=== PATIENT | female | born 1990 | race Caucasian/White ===

== ENCOUNTER → 2016-08-13 | Outpatient (CLI) | payer MEDICAID ==
[~2016-08-13] MED LIST: ACHD5005 PO; ACHYD1T PO; AMOX500C2 PO; AMOX875T2 PO; AZIT500T PO; CEFU500T PO; CEPH500C PO; CLIN300C11 PO; CPH250CIP PO; CYCL10TA9 PO; DICY10CA26 PO; DOXY100C2 PO; FLUC150T PO; FLUC200T45 PO; HYDR25CA5 PO; HYOS0.1216 PO; IBP800T PO; IBUP-1773 PO; IBUP1TAB5 PO; METR500T PO; NAPR-243 PO; NITR100C3 PO; ONDA-42 SL; ONDA4TAB8 PO; OXYC-109 PO; PHEN200T27 PO; PREN-115 PO; PROM25SU10 PR; SULF1TAB35 PO; TRAM-21 PO; TRAM-42 PO; TRAM100T26 PO; TRAM50TA2 PO; TRM50T PO
--- NOTE | 2016-08-13 15:02 | Diagnostic Imaging Report ---
OB ultrasound. INDICATION: survey. COMPARISON: 06/20/2016. FINDINGS: heart rate is 143 beats per minutes. The placenta is posterior. No placenta previa. There is adequate amniotic fluid. survey parameters demonstrate normal appearance of the posterior fossa, no ventriculomegaly. Visualized kidneys demonstrate no hydronephrosis or cystic mass. The cord insertion, bladder, and stomach are visualized. Three-vessel cord is not well demonstrated. The spine appears unremarkable. The growth parameters are all around 19 weeks and 1 day, normal interval growth compared to prior studies and consistent with gestational age of 18 weeks and 4 days based on prior first trimester ultrasound dating. IMPRESSION: Appropriate interval growth. Reevaluation within 2-3 weeks for four-chamber view and three-vessel cord is recommended. Dictated by: Dictated on workstation # [id number]
== END ==
LOC: RAD 10:04
PROVIDERS: ATTEND Family Medicine
DX: Z34.02 Encounter for supervision of normal first pregnancy, second trimester (principal); Z36 Encounter for antenatal screening of mother; Z3A.19 19 weeks gestation of pregnancy
CPT/HCPCS: 76805

== ENCOUNTER 2016-10-05 23:06 | Outpatient (CLI) | payer MEDICAID ==
[~2016-10-05] VITALS: Ht 170.2 cm; Wt 81.8 kg
[2016-10-05 23:34] LABS: BILIRUBIN,URINE NEGATIVE (NEGATIVE); KETONES,URINE NEGATIVE (NEGATIVE); LEUKOCYTE ESTERASE ,URINE NEGATIVE (NEGATIVE); NITRITE,URINE NEGATIVE (NEGATIVE); PH,URINE 7 (5-9); PROTEIN,URINE NEGATIVE (NEGATIVE); UROBILINOGEN,URINE NORMAL (NORMAL)
[2016-10-05 23:48] VITALS: BP 114/57
--- NOTE | 2016-10-06 14:11 | Physician Query-Final Dx ---
TINA ORTEGA 10/06/16 1411: Clinic Account Progress/Dx Physician Query: Please give diagnosis Date of Service Oct 05, 2016 at 23:06 TORI GRAY MD 10/19/16 1728: Clinic Account Progress/Dx DIAGNOSIS: Diagnosis 1. Decreased movement 2. Pelvic pain-pressure from 3. IUP at 27 weeks. TINA ORTEGA Oct 06, 2016 14:11 TORI GRAY MD Oct 19, 2016 17:28
== END 2016-10-05 23:53 | disposition home or self-care (01) ==
LOC: DELPENDDIS → LDRP 23:06 → WSo 23:06
PROVIDERS: ATTEND Family Medicine
DX: O36.8120 Decreased fetal movements, second trimester, not applicable or unspecified (principal); O99.89 Other specified diseases and conditions complicating pregnancy, childbirth and the puerperium; R10.2 Pelvic and perineal pain; Z3A.27 27 weeks gestation of pregnancy
CPT/HCPCS: 81000; 99212

== ENCOUNTER → 2016-10-14 | Outpatient (CLI) | payer MEDICAID ==
--- NOTE | 2016-10-14 17:34 | Diagnostic Imaging Report ---
EXAMINATION: OB ultrasound. INDICATION: survey. FINDINGS: The previous OB ultrasound exam performed on 08/13/2016 noted a single live fetus of approximately 19 weeks 1 day gestation +/- 1 week. There are no abnormalities identified, but the four-chamber heart view and the three-vessel cord were not well visualized. On this study, the fetus is again evident. The fetus is transverse in presentation. heart motion is noted and a rate of 153 bpm is recorded. The four-chamber heart view and the three-vessel cord are obtained on this study and are of better quality than on the prior exam. There is no abnormality of the heart or the three-vessel cord. No other abnormality is identified. The growth parameters are not obtained for this study. The placenta is posterior and there is no previa. The amniotic fluid index is 21.4 cm (normal 8-22 cm). On the prior exam, the amniotic fluid index was not calculated, although the amniotic fluid volume appeared to be within normal limits. I do feel that there has been an increase in the amniotic fluid volume since the prior study. I would recommend that a short-term (2-4 weeks) follow-up exam be performed for further study. The cervix is visualized during this exam. The cervix is closed and measures 5.2 cm in length (normal 3 cm or greater). IMPRESSION: 1. There is a single live fetus in transverse presentation. 2. There are no abnormalities identified. In particular, four-chamber heart view and three-vessel cord appear to be within normal limits. 3. The amniotic fluid volume is at the upper most limits of normal. Recommendations as above. Dictated by: Dictated on workstation # [id number]
== END ==
LOC: RAD 13:19
PROVIDERS: ATTEND Family Medicine
DX: Z36 Encounter for antenatal screening of mother (principal)
CPT/HCPCS: 76816

== ENCOUNTER 2016-11-21 20:14 | Outpatient (CLI) | payer MEDICAID ==
[~2016-11-21] VITALS: Ht 170.2 cm; Wt 82.7 kg
[2016-11-21 20:45] LABS: BILIRUBIN,URINE NEGATIVE (NEGATIVE); KETONES,URINE NEGATIVE (NEGATIVE); LEUKOCYTE ESTERASE ,URINE 1+ (NEGATIVE); NITRITE,URINE NEGATIVE (NEGATIVE); PH,URINE 6.5 (5-9); PROTEIN,URINE 1+ (NEGATIVE); UROBILINOGEN,URINE NORMAL (NORMAL)
[2016-11-21 21:07] VITALS: BP 113/69
--- NOTE | 2016-11-24 11:24 | Physician Query-Final Dx ---
TINA ORTEGA 11/24/16 1124: Clinic Account Progress/Dx Physician Query: Please give diagnosis Date of Service November 21, 2016 at 20:14 SIN CHANEY MD 11/27/16 2152: Clinic Account Progress/Dx DIAGNOSIS: Diagnosis Left leg pain Vaginal pressure TINA ORTEGA November 24, 2016 11:24 SIN CHANEY MD November 27, 2016 21:52
== END 2016-11-21 21:15 | disposition home or self-care (01) ==
LOC: LDRP 20:14 → WSo 20:14
PROVIDERS: ATTEND Family Medicine
DX: O99.89 Other specified diseases and conditions complicating pregnancy, childbirth and the puerperium (principal); M79.605 Pain in left leg; R10.2 Pelvic and perineal pain; Z3A.32 32 weeks gestation of pregnancy
CPT/HCPCS: 81000; 87210; 99212

== ENCOUNTER 2016-12-24 00:48 | Outpatient (CLI) | payer MEDICAID ==
[~2016-12-24] VITALS: Ht 167.6 cm; Wt 83.9 kg
[2016-12-24 01:06] VITALS: BP 109/67
[2016-12-24 01:14] LABS: BILIRUBIN,URINE NEGATIVE (NEGATIVE); KETONES,URINE NEGATIVE (NEGATIVE); LEUKOCYTE ESTERASE ,URINE NEGATIVE (NEGATIVE); NITRITE,URINE NEGATIVE (NEGATIVE); PH,URINE 6.5 (5-9); PROTEIN,URINE NEGATIVE (NEGATIVE); UROBILINOGEN,URINE NORMAL (NORMAL)
[2016-12-24] MEDS ORDERED: PREN-142 PO (01:39)
--- NOTE | 2016-12-25 12:20 | Physician Query-Final Dx ---
MICH VERDIN 12/25/16 1220: Clinic Account Progress/Dx Physician Query: Please give diagnosis Date of Service Dec 24, 2016 at 00:48 TORI GARY MD 12/31/16 0729: Clinic Account Progress/Dx DIAGNOSIS: Diagnosis 1. IUP at 37 weeks non labor 2. Uterine irritability MICH VERDIN Dec 25, 2016 12:20 TORI GRAY MD Dec 31, 2016 07:29
--- NOTE | 2016-12-25 12:20 | Physician Query-Final Dx ---
Clinic Account Progress/Dx Physician Query: Please give diagnosis Date of Service Dec 24, 2016 at 00:48 MICH VERDIN Dec 25, 2016 12:20
[2017-01-01] MEDS ORDERED: Oxycodone Hcl PO (13:32)
[2017-01-01] MEDS ORDERED: IBUP-1773 PO (13:32)
== END 2016-12-24 03:05 | disposition home or self-care (01) ==
LOC: LDRP 00:48 → WSo 00:48
PROVIDERS: ATTEND Family Medicine
DX: O47.1 False labor at or after 37 completed weeks of gestation (principal); Z3A.37 37 weeks gestation of pregnancy
CPT/HCPCS: 81000; 99213

== ENCOUNTER 2016-12-25 14:44 | Outpatient (CLI) | payer MEDICAID ==
[~2016-12-25] VITALS: Ht 167.6 cm; Wt 83.2 kg
[~2016-12-25 14:44] MED LIST changes: +PREN-142 PO
[2016-12-25 15:03] VITALS: BP 121/59
--- NOTE | 2016-12-26 14:32 | Physician Query-Final Dx ---
TINA ORTEGA 12/26/16 1432: Clinic Account Progress/Dx Physician Query: Please give diagnosis Date of Service Dec 25, 2016 at 14:44 TORI GRAY MD 12/31/16 0731: Clinic Account Progress/Dx DIAGNOSIS: Diagnosis 1. IUP at 37 weeks, non labor 2. Uterine irritability TINA ORTEGA Dec 26, 2016 14:32 TORI GRAY MD Dec 31, 2016 07:31
[2017-01-01] MEDS ORDERED: IBUP-1773 PO (13:32)
[2017-01-01] MEDS ORDERED: Oxycodone Hcl PO (13:32)
== END 2016-12-25 16:38 ==
LOC: WSo 14:44 → LDRP 14:45 → WSo 16:38
PROVIDERS: ATTEND Family Medicine
DX: O34.593 Maternal care for other abnormalities of gravid uterus, third trimester (principal); N85.8 Other specified noninflammatory disorders of uterus; Z3A.37 37 weeks gestation of pregnancy
CPT/HCPCS: 99213

== ENCOUNTER 2016-12-28 15:00 | Outpatient (CLI) | payer MEDICAID ==
[~2016-12-28] VITALS: Ht 167.6 cm; Wt 83.2 kg
[2016-12-28 16:00] VITALS: BP 126/77
[2016-12-28 16:40] VITALS: BP 130/80
--- NOTE | 2016-12-29 13:43 | Physician Query-Final Dx ---
TINA ORTEGA 12/29/16 1342: Clinic Account Progress/Dx Physician Query: Please give diagnosis Date of Service Dec 28, 2016 at 15:00 ALFREDITO MENDEZ MD 01/06/174: Clinic Account Progress/Dx DIAGNOSIS: Diagnosis 38 weeks gestation Contractions without cervical change TINA ORTEGA Dec 29, 2016 13:42 ALFREDITO MENDEZ MD Jan 06, 2017 20:54
== END 2016-12-28 17:05 | disposition home or self-care (01) ==
LOC: WSo 15:00 → LDRP 15:01 → WSo 17:05
PROVIDERS: ATTEND Family Medicine
DX: O47.1 False labor at or after 37 completed weeks of gestation (principal); Z3A.38 38 weeks gestation of pregnancy
CPT/HCPCS: 99213

== ENCOUNTER 2016-12-29 08:44 | Outpatient (CLI) | payer MEDICAID ==
[~2016-12-29] VITALS: Ht 167.6 cm; Wt 83.5 kg
[2016-12-29 09:08] VITALS: BP 110/68
--- NOTE | 2016-12-30 15:16 | Physician Query-Final Dx ---
MICH VERDIN 12/30/16 1516: Clinic Account Progress/Dx Physician Query: Please give diagnosis Date of Service Dec 29, 2016 at 08:44 TORI GRAY MD 12/31/16 0733: Clinic Account Progress/Dx DIAGNOSIS: Diagnosis 1. IUP at 38 weeks, non labor 2. Uterine irritability MICH VERDIN Dec 30, 2016 15:16 TORI GRAY MD Dec 31, 2016 07:33
[2017-01-01] MEDS ORDERED: Oxycodone Hcl PO (13:32)
[2017-01-01] MEDS ORDERED: IBUP-1773 PO (13:32)
== END 2016-12-29 10:55 | disposition home or self-care (01) ==
LOC: WSo 08:44 → LDRP 08:44 → WSo 10:55
PROVIDERS: ATTEND Family Medicine
DX: O47.1 False labor at or after 37 completed weeks of gestation (principal); Z3A.38 38 weeks gestation of pregnancy
CPT/HCPCS: 99214

== ENCOUNTER 2016-12-31 10:40 | Inpatient (IN) | payer MEDICAID ==
[2016-12-31] MEDS ORDERED: D5 LR IV SOLUTION 1,000 ML IV SCH (11:21)
[2016-12-31] MEDS ORDERED: D5 LR IV SOLUTION 1,000 ML IV ONE (11:26)
[2016-12-31] MEDS ORDERED: MEPIVACAINE (CARBOCAINE) 2% 50 ML VIAL INJ PRN (11:30)
[2016-12-31] MEDS ORDERED: OXYTOCIN/NORMAL SALINE 500 ML IV SCH ×2 (12:08→16:23)
[2016-12-31] MEDS ORDERED: CATHETER FLUSH 10 ML SYR IV SCH ×2 (14:00→22:00)
[2016-12-31] MEDS ORDERED: BUTORPHANOL INJ 2 MG/ML (STADOL) VIAL IV PRN (14:45)
[2016-12-31] MEDS ORDERED: NALOXONE 0.4 MG/ML 1 ML (NARCAN) VIAL ONE (15:02)
[2016-12-31] MEDS ORDERED: WITCH HAZEL(TUCKS) 40 EA JAR TOP PRN (16:30)
[2016-12-31] MEDS ORDERED: TETANUS,DIPTH,PERTUSS P/F (BOOSTRIX) 0.5 ML VIAL IM ONE (16:30)
[2016-12-31] MEDS ORDERED: MEASLES,MUMPS,RUBELLA 1 EA INJ SQ ONE (16:30)
[2016-12-31] MEDS ORDERED: BENZOCAINE/MENTHOL (DERMOPLAST) 56 ML CAN TP PRN (16:30)
[2016-12-31] MEDS: IBUPROFEN 600 MG (MOTRIN) TAB PO SCH ×2 (17:54→23:55)
[2017-01-01] MEDS: IBUPROFEN 600 MG (MOTRIN) TAB PO SCH ×2 (06:13→11:19)
[2017-01-01] MEDS ORDERED: PRENATAL VITAMIN 1 EA TAB PO SCH (07:00)
[2017-01-01] MEDS ORDERED: IBUP-1773 PO (13:32)
[2017-01-01] MEDS ORDERED: Oxycodone Hcl PO (13:32)
[2017-01-01] MEDS ORDERED: TETANUS,DIPTH,PERTUSS P/F (BOOSTRIX) 0.5 ML VIAL IM ONE (14:40)
== END 2017-01-01 16:55 | disposition home or self-care (01) | DRG 775 ==
DX: O80 Encounter for full-term uncomplicated delivery (principal); Z3A.38 38 weeks gestation of pregnancy; Z37.0 Single live birth

== ENCOUNTER 2017-02-03 16:06 | Emergency (ER) | payer MEDICAID ==
[~2017-02-03] VITALS: Ht 167.6 cm; Wt 70.3 kg
[~2017-02-03 16:06] MED LIST changes: +Oxycodone Hcl PO
--- NOTE | 2017-02-03 17:19 | ED General ---
General Chief Complaint: Chest Wall/Rib Pain Stated Complaint: CHEST PAIN Nursing Triage Note: Pt c/o chest pain since last night. Pt reports pain is worse w/ movement. Nursing Sepsis Screen: No Definite Risk Source of Information: Patient Exam Limitations: No Limitations History of Present Illness Time Seen by Provider: 17:19 Initial Comments 26-year-old female patient presents to the emergency department with complaints of rib pain beginning last night. Patient reports pain worse with deep breath and movement. Denies fever or chills. Denies shortness of air. Reports having a baby in one month ago. Denies breast-feeding. Timing/Duration: 12-24 Hours Modifying Factors: worse with Movement, worse with Other (worse with deep breath.) Allergies and Home Medications Allergies Coded Allergies: acetaminophen (Unverified Allergy, Unknown, HIVES, 06/13/16) Home Medications Ibuprofen 600 Mg Tablet, 600 MG PO Q6H, #30 Ref 0 Prescribed by: TORI GRAY on 01/01/17 1332 Vit No.124/Iron/FA 1 Each Tablet, 1 EACH PO PRN, (Reported) [Oxycodone Hcl] 5 MG TAB, 5 MG PO Q6HR PRN for PAIN-SEVERE, #15 Ref 0 Prescribed by: TORI GRAY on 01/01/17 1332 Constitutional: No chills, No diaphoresis, No fever, No malaise Respiratory: see HPI, No cough, No dyspnea on exertion, No orthopnea, No phlegm , No short of breath, No stridor, No wheezing, other (rib pain) Cardiovascular: see HPI, No chest pain, No palpitations, No syncope Gastrointestinal: No abdominal pain, No constipation, No diarrhea, No nausea, No vomiting Genitourinary: no symptoms reported Musculoskeletal: see HPI, No back pain, No neck pain, other (rib pain) Skin: no symptoms reported Psychiatric/Neurological: No Symptoms Reported All Other Systems Reviewed Negative Unless Noted: Yes (Negative excepted noted.) Past Wjuqljs-Iqrfuh-Etrgov Hx Patient Social History Alcohol Use: Occasionally Uses Recreational Drug Use: No Smoking Status: Current Everyday Smoker Type Used: Cigarettes Recent Foreign Travel: No Contact w/Someone Who Travel: No Recent Infectious Disease Expo: No Recent Hopitalizations: No Immunizations Up To Date Tetanus Booster (TDap): Less than 5yrs PED Vaccines UTD: Yes Date of Pneumonia Vaccine: Apr 12, 2013 Date of Influenza Vaccine: Apr 12, 2016 Seasonal Allergies Seasonal Allergies: No Surgeries HX Surgeries: Yes (TEETH REMOVED) Respiratory Hx Respiratory Disorders: No Cardiovascular Hx Cardiac Disorders: No Neurological Hx Neurological Disorders: Yes (SEIZURES PER PT--NO PHYSICAN DOCUMENTED SEIZURES) Neurological Disorders: Seizure Disorder Reproductive System Hx Reproductive Disorders: Yes (CHRONIC PELVIC PAIN ) Sexually Transmitted Disease: No HIV/AIDS: No Female Reproductive Disorders: Menstrual Problems, Pelvic Inflammatory Dis, Endometriosis Genitourinary Hx Genitourinary Disorders: Yes Genitourinary Disorders: Bladder Infection Gastrointestinal Hx Gastrointestinal Disorders: No Musculoskeletal Hx Musculoskeletal Disorders: No Endocrine Hx Endocrine Disorders: Yes ("HYPOGLYCEMIC" PER PT) HEENT HX ENT Disorders: Yes (TEETH REMOVED) Cancer Hx Cancer: No Psychosocial Hx Psychiatric Problems: No Integumentary HX Skin/Integumentary Disorder: No Blood Transfusions Hx Blood Disorders: No Adverse Reaction to a Blood Tr: No Reviewed Nursing Assessment Reviewed/Agree w Nursing PMH: Yes Family Medical History Significant Family History: No Pertinent Family Hx Physical Exam Vital Signs Vital Sign - Last 12Hours 02/03/17 16:38 Temp 96.8 Pulse 75 Resp 18 B/P (MAP) 117/70 Pulse Ox 96 O2 Delivery Room Air Capillary Refill : Less Than 3 Seconds General Appearance: No Apparent Distress, WD/WN, Other (Patient sitting up in bed with a cigarette behind her left ear.) HEENT: PERRL/EOMI, TMs Normal, Normal ENT Inspection, Pharynx Normal Neck: Full Range of Motion, Supple, Tender Lateral (left paraspinous muscle spasm and tenderness.), No Tender Midline Respiratory: Lungs Clear, Normal Breath Sounds, No Respiratory Distress, Other (generalized anterior chest wall tenderness without evidence of trauma.) Cardiovascular: Regular Rate, Rhythm, No Edema, No Murmur, Normal Peripheral Pulses Gastrointestinal: Normal Bowel Sounds, No Organomegaly, Non Tender, Soft Back: Normal Inspection, No Vertebral Tenderness Extremity: Normal Capillary Refill, Normal Inspection, No Pedal Edema Neurologic/Psychiatric: Alert, Oriented x3, No Motor/Sensory Deficits, Normal 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 Decision time for Depature: 17:36 Referrals: TORI GRAY MD (PCP/Family) Primary Care Physician Patient Instructions: Costochondritis (DC) Add. Discharge Instructions: All discharge instructions reviewed with patient and/or family. Voiced understanding. Medications as instructed. Ice pack or heating pads as needed for pain. Avoid lifting greater than 12 pounds for 5-7 days. Then increase activity as tolerated. Follow-up with Dr. Gray in 2 weeks as previously scheduled or sooner if needed. Return to the emergency department for worsened symptoms or any other concerns. Scripts Naproxen (Naprosyn) 500 Mg Tablet 500 MG PO BID Y for pain, #20 TAB 0 Refills Prov: FARHAN STARKS 02/03/17 Prednisone (Prednisone) 20 Mg Tab 40 MG PO DAILY, #10 TAB 0 Refills Prov: FARHAN STARKS 02/03/17 Cyclobenzaprine HCl (Cyclobenzaprine HCl) 10 Mg Tablet 10 MG PO Q8H Y for SPASMS, #14 TAB 0 Refills Prov: FARHAN STARKS 02/03/17 FARHAN STARKS Feb 03, 2017 17:19
[2017-02-03] MEDS ORDERED: CYCLOBENZAPRINE 10 MG (FLEXERIL) TAB PO STA (17:31)
[2017-02-03] MEDS ORDERED: NAPR500T PO (17:38)
[2017-02-03] MEDS ORDERED: CYCL10TA9 PO (17:38)
[2017-02-03] MEDS ORDERED: PRD20T PO (17:38)
[2017-02-03 17:43] VITALS: BP 117/70
== END 2017-02-03 17:43 | disposition home or self-care (01) ==
LOC: EDUNIT# 16:06 → ER 16:10
DX: M94.0 Chondrocostal junction syndrome [Tietze] (principal); G40.909 Epilepsy, unspecified, not intractable, without status epilepticus; F17.210 Nicotine dependence, cigarettes, uncomplicated
CPT/HCPCS: 99283

== ENCOUNTER 2017-02-13 22:01 | Emergency (ER) | payer MEDICAID ==
[~2017-02-13 22:01] MED LIST changes: +NAPR500T PO; +PRD20T PO
[2017-02-13 23:24] VITALS: BP 0/0
[2017-02-14] MEDS ORDERED: PRD20T PO (11:00)
[2017-02-14] MEDS ORDERED: HYDR115S2 PO (11:00)
== END 2017-02-13 23:24 | disposition left against medical advice (07) ==
LOC: EDUNIT# 22:01 → ER 22:02
DX: R05 Cough (principal)
CPT/HCPCS: 99281

== ENCOUNTER 2017-02-14 09:57 | Emergency (ER) | payer MEDICAID ==
[~2017-02-14] VITALS: Ht 167.6 cm; Wt 68.0 kg
--- NOTE | 2017-02-14 10:14 | ED Cough/URI ---
General Stated Complaint: PNEUMONIA Source: patient, RN notes reviewed Exam Limitations: no limitations History of Present Illness Time seen by provider: 10:13 Initial Comments Patient presents c/ c/o productive cough for the last several days. Reported exposure to someone c/ pneumonia. Not sure if has had fever. Has felt warm of late. (+) smoker. Timing/Duration: week (1) Severity/Quality: moderate, productive cough Prior Episodes/Possible Cause: occasional episodes Modifying Factors: Worse With Coughing Associated Symptoms: cough, fever/chills (?), nasal congestion Allergies and Home Medications Allergies Coded Allergies: acetaminophen (Unverified Allergy, Unknown, HIVES, 06/13/16) Home Medications Hydrocodone/Chlorphen P-Stirex 115 Ml Mariola.er.12h, 5 ML PO Q12H PRN for COUGH/ CONGESTION, #120 Ref 0 Prescribed by: HIREN DIEHL on 02/14/17 1100 Prednisone 20 Mg Tab, 30 MG PO BID for 5 Days, #15 Ref 0 Prescribed by: HIREN DIEHL on 02/14/17 1100 Constitutional: see HPI EENTM: nose congestion, see HPI Respiratory: see HPI, cough, phlegm : No All Other Systems Reviewed Negative Unless Noted: Yes Past Rvnfjol-Jbiztt-Rwcqon Hx Patient Social History Type Used: Cigarettes Recent Foreign Travel: No Contact w/Someone Who Travel: No Recent Hopitalizations: No Immunizations Up To Date Tetanus Booster (TDap): Less than 5yrs PED Vaccines UTD: Yes Date of Pneumonia Vaccine: Apr 12, 2013 Date of Influenza Vaccine: Apr 12, 2016 Seasonal Allergies Seasonal Allergies: No Surgeries HX Surgeries: Yes (TEETH REMOVED) Respiratory Hx Respiratory Disorders: No Cardiovascular Hx Cardiac Disorders: No Neurological Hx Neurological Disorders: Yes (SEIZURES PER PT--NO PHYSICAN DOCUMENTED SEIZURES) Neurological Disorders: Seizure Disorder Reproductive System Hx Reproductive Disorders: Yes (CHRONIC PELVIC PAIN ) Sexually Transmitted Disease: No HIV/AIDS: No Female Reproductive Disorders: Menstrual Problems, Pelvic Inflammatory Dis, Endometriosis Genitourinary Hx Genitourinary Disorders: Yes Genitourinary Disorders: Bladder Infection Gastrointestinal Hx Gastrointestinal Disorders: No Musculoskeletal Hx Musculoskeletal Disorders: No Endocrine Hx Endocrine Disorders: Yes ("HYPOGLYCEMIC" PER PT) HEENT HX ENT Disorders: Yes (TEETH REMOVED) Cancer Hx Cancer: No Psychosocial Hx Psychiatric Problems: No Integumentary HX Skin/Integumentary Disorder: No Blood Transfusions Hx Blood Disorders: No Adverse Reaction to a Blood Tr: No Family Medical History Significant Family History: No Pertinent Family Hx Physical Exam Vital Signs Vital Sign - Last 12Hours 02/14/17 02/14/17 10:05 11:08 Temp 98.0 Pulse 87 Resp 18 B/P (MAP) 119/79 Pulse Ox 98 O2 Delivery Room Air Capillary Refill : General Appearance: WD/WN, no apparent distress HEENT: normal ENT inspection Neck: normal inspection Respiratory: lungs clear, normal breath sounds, no respiratory distress Cardiovascular: regular rate, rhythm Neurologic/Psychiatric: no motor/sensory deficits, alert, oriented x 3 Skin: warm/dry Progress/Results/Core Measures Results/Orders My Orders Orders - HIREN DIEHL DO Chest Pa/Lat (2 View) (02/14/17 10:23) Vital Signs/I&O Vital Sign - Last 12Hours 02/14/17 02/14/17 10:05 11:08 Temp 98.0 98.0 Pulse 87 87 Resp 18 18 B/P (MAP) 119/79 Pulse Ox 98 O2 Delivery Room Air Room Air Diagnostic Imaging Diagonstic Imaging: Xray Plain Films/CT/US/NM/MRI: chest Reviewed: Reviewed/Discussed Departure Impression Impression: Primary Impression: Bronchitis Additional Impression: Tobacco abuse Disposition: 01 HOME, SELF-CARE Condition: Stable Departure-Patient Inst. Decision time for Depature: 10:58 Referrals: TORI GRAY MD (PCP/Family) Primary Care Physician Patient Instructions: Acute Bronchitis, Adult (DC) Scripts Hydrocodone/Chlorphen P-Stirex (Tussionex Pennkinetic Susp) 115 Ml Mariola.er.12h 5 ML PO Q12H Y for COUGH/CONGESTION, #120 ML 0 Refills Prov: HIREN DIEHL DO 02/14/17 Prednisone (Prednisone) 20 Mg Tab 30 MG PO BID for 5 Days, #15 TAB 0 Refills Prov: HIREN DIEHL DO 02/14/17 HIREN DIEHL DO Feb 14, 2017 10:13
--- NOTE | 2017-02-14 10:48 | Diagnostic Imaging Report ---
INDICATION: Dyspnea and chest pain. DISCUSSION: Two views of the chest were obtained, comparison 12/06/2015. The heart and lungs are normal. No osseous abnormality identified. IMPRESSION: 1. Normal chest. Dictated by: Dictated on workstation # [id number]
[2017-02-14] MEDS ORDERED: HYDR115S2 PO (11:00)
[2017-02-14] MEDS ORDERED: PRD20T PO (11:00)
[2017-02-14 11:08] VITALS: BP 119/79
== END 2017-02-14 11:08 | disposition home or self-care (01) ==
LOC: EDUNIT# 09:57 → ER 09:58
DX: J40 Bronchitis, not specified as acute or chronic (principal); G40.909 Epilepsy, unspecified, not intractable, without status epilepticus; F17.210 Nicotine dependence, cigarettes, uncomplicated; Z87.42 Personal history of other diseases of the female genital tract; Z98.818 Other dental procedure status
CPT/HCPCS: 71020; 99282

== ENCOUNTER 2017-03-04 10:57 | Emergency (ER) | payer MEDICAID ==
[~2017-03-04] VITALS: Ht 167.6 cm; Wt 67.6 kg
[~2017-03-04 10:57] MED LIST changes: +HYDR115S2 PO
[2017-03-04] MEDS ORDERED: SULF1TAB35 PO (11:35)
[2017-03-04] MEDS ORDERED: DAPS25TA2 PO (11:35)
--- NOTE | 2017-03-04 11:36 | ED Integumentary General ---
General Chief Complaint: Skin/Wound Problems Stated Complaint: POSSIBLE SPIDER BITE ON LEFT LEG Nursing Triage Note: PT CO OF BITE ON L LATERAL KNEE AREA SMALL APPROX 2CM SL REDDEND AREA PT CO OF PAIN WHEN TOUCHED AND ITCHING, Source: patient Exam Limitations: no limitations History of Present Illness Time seen by provider: 11:24 Initial Comments 6-year-old female patient presents to the emergency department complains of a possible spider right to the left lateral knee. Patient reports noticing the area 2 days ago. States she did not contact [facility] because "they couldn't get my son in yesterday to be seen, so I didn't figure they would get me in today." Location Injury Occurred: unknown Timing/Duration: getting worse, other (2 days) Location: extremities (left lateral knee) Possible Cause: other (possible spider bite) Modifying Factors: worse with other (worse with palpation) Allergies and Home Medications Allergies Coded Allergies: acetaminophen (Unverified Allergy, Unknown, HIVES, 06/13/16) Home Medications Hydrocodone/Chlorphen P-Stirex 115 Ml Mariola.er.12h, 5 ML PO Q12H PRN for COUGH/ CONGESTION, #120 Ref 0 Prescribed by: HIREN DIEHL on 02/14/17 1100 Prednisone 20 Mg Tab, 30 MG PO BID for 5 Days, #15 Ref 0 Prescribed by: HIREN DIEHL on 02/14/17 1100 Constitutional: No chills, No fever, No malaise EENTM: no symptoms reported Respiratory: No cough, No short of breath Cardiovascular: no symptoms reported Gastrointestinal: No abdominal pain, No nausea, No vomiting Musculoskeletal: no symptoms reported Skin: see HPI Psychiatric/Neurological: No Symptoms Reported All Other Systems Reviewed Negative Unless Noted: Yes (Negative excepted noted.) Past Qswbnyv-Lnqplk-Qdguhe Hx Patient Social History Alcohol Use: Denies Use Recreational Drug Use: No Type Used: Cigarettes Recent Foreign Travel: No Contact w/Someone Who Travel: No Recent Infectious Disease Expo: No Recent Hopitalizations: No Physical Abuse: No Sexual Abuse: No Immunizations Up To Date Tetanus Booster (TDap): Less than 5yrs PED Vaccines UTD: Yes Date of Pneumonia Vaccine: Apr 12, 2013 Date of Influenza Vaccine: Apr 12, 2016 Seasonal Allergies Seasonal Allergies: No Surgeries History of Surgeries: Yes (TEETH REMOVED) Respiratory History of Respiratory Disorde: No Cardiovascular History of Cardiac Disorders: No Neurological History of Neurological Disord: Yes (SEIZURES PER PT--NO PHYSICAN DOCUMENTED SEIZURES) Neurological Disorders: Seizure Disorder Reproductive System Hx Reproductive Disorders: Yes (CHRONIC PELVIC PAIN ) Sexually Transmitted Disease: No HIV/AIDS: No Female Reproductive Disorders: Menstrual Problems, Pelvic Inflammatory Dis, Endometriosis Genitourinary History of Genitourinary Disor: No Genitourinary Disorders: Bladder Infection Gastrointestinal History of Gastrointestinal Di: No Musculoskeletal History of Musculoskeletal Dis: No Endocrine History of Endocrine Disorders: Yes ("HYPOGLYCEMIC" PER PT) HEENT History of HEENT Disorders: No Cancer History of Cancer: No Psychosocial History of Psychiatric Problem: No Suicide Risk Score: 0 Integumentary History of Skin or Integumenta: No Blood Transfusions History of Blood Disorders: No Adverse Reaction to a Blood Tr: No Reviewed Nursing Assessment Reviewed/Agree w Nursing PMH: Yes Family Medical History Significant Family History: No Pertinent Family Hx Physical Exam Vital Signs Vital Sign - Last 12Hours 03/04/17 11:15 Temp 97.1 Pulse 92 Resp 18 B/P (MAP) 128/81 Pulse Ox 97 Capillary Refill : Less Than 3 Seconds General Appearance: WD/WN, no apparent distress Cardiovascular: normal peripheral pulses, no edema Extremities: normal range of motion, no pedal edema, normal capillary refill, other (2 x 2 centimeter area of mild erythema and ecchymosis with central puncture site noted on the left lateral knee. No fluctuance or induration noted. Soft tissue tenderness noted.) Neurologic/Psychiatric: no motor/sensory deficits, alert, normal mood/affect, oriented x 3 Skin: normal color, warm/dry, other (2 x 2 centimeter area of mild erythema and ecchymosis with central puncture site noted on the left lateral knee. No fluctuance or induration noted. Soft tissue tenderness noted.) Skin Problem Location: lower extremities (left lateral knee) Skin Problem Character: other (2 x 2 centimeter area of mild erythema and ecchymosis with central puncture site noted on the left lateral knee. No fluctuance or induration noted. Soft tissue tenderness noted.) Progress/Results/Core Measures Results/Orders Vital Signs/I&O Vital Sign - Last 12Hours 03/04/17 11:15 Temp 97.1 Pulse 92 Resp 18 B/P (MAP) 128/81 Pulse Ox 97 Blood Pressure Mean: 97 Departure Impression Impression: Primary Impression: Cellulitis Qualified Codes: L03.116 - Cellulitis of left lower limb Additional Impression: Spider bite Qualified Codes: T63.301A - Toxic effect of unspecified spider venom, accidental (unintentional), initial encounter Disposition: HOME, SELF-CARE Condition: Improved Departure-Patient Inst. Decision time for Depature: 11:34 Referrals: TORI GRAY MD (PCP/Family) Primary Care Physician Patient Instructions: Cellulitis (Skin Infection), Adult (DC), Spider Bites Add. Discharge Instructions: All discharge instructions reviewed with patient and/or family. Voiced understanding. Medications as instructed. If needed 100 mg by mouth every 8 hours as needed for pain. Elevate the left leg on pillows. Shower with antibacterial soap. Ice pack or heating pads as needed for pain. Follow-up with your family practitioner for recheck as outpatient. Return to the emergency department for worsened symptoms or any other concerns. Scripts Sulfamethoxazole/Trimethoprim (Bactrim Ds Tablet) 1 Each Tablet 1 EACH PO BID, #14 TAB 0 Refills Prov: FARHAN STARKS 03/04/17 Dapsone (Dapsone) 25 Mg Tablet 50 MG PO BID, #20 TAB 0 Refills Prov: FARHAN STARKS 03/04/17 FARHAN STARKS Mar 04, 2017 11:36
[2017-03-04 11:57] VITALS: BP 122/84
== END 2017-03-04 11:57 | disposition home or self-care (01) ==
LOC: EDUNIT# 10:57 → ER 11:01
DX: S80.862A Insect bite (nonvenomous), left lower leg, initial encounter (principal); L03.116 Cellulitis of left lower limb; G40.909 Epilepsy, unspecified, not intractable, without status epilepticus; Z87.448 Personal history of other diseases of urinary system; W57.XXXA Bitten or stung by nonvenomous insect and other nonvenomous arthropods, initial encounter
CPT/HCPCS: 99282

== ENCOUNTER 2017-03-12 22:03 | Emergency (ER) | payer MEDICAID ==
[~2017-03-12] VITALS: Ht 167.6 cm; Wt 73.0 kg
[~2017-03-12 22:03] MED LIST changes: +DAPS25TA2 PO
--- OUTSIDE RECORDS SUMMARY | 2017-03-12 22:10 | XMS REPORT ---
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 Name Role Phone LISSET PAULA Unavailable PROBLEMS Type Condition ICD9-CM Code [id number] Code Onset Dates Condition Status SNOMED Code Problem Depressive disorder, not elsewhere classified F32.9 Active 27845296 Problem Depression, unspecified depression type F32.9 Active 53251691 Problem Teeth missing, unspecified edentulism K08.109 Active 19017489 Problem Acne, unspecified L70.9 Active 70905040 Problem Tobacco use Z72.0 Active 659394762 Problem Desire for Z31.9 Active 057103233 Problem Dysfunction of eustachian tube H69.80 Active 83430451 Problem Family history of diabetes mellitus Z83.3 Active 265259404 Problem Irregular menses N92.6 Active 40275895 ALLERGIES Unknown Allergies SOCIAL HISTORY No smoking Hx information available PLAN OF CARE Activity Details Follow Up 1 Week Reason:Depression VITAL SIGNS MEDICATIONS Unknown Medications RESULTS No Results PROCEDURES Procedure Date Ordered Related Diagnosis Body Site Psychotherapy, patient &/family, 30 minutes, established patient Jul 15, 2016 IMMUNIZATIONS No Known Immunizations
--- OUTSIDE RECORDS SUMMARY | 2017-03-12 22:10 | XMS REPORT ---
Author Author DANIEL GOVEA Organization [facility] Address [address] [place] [address] Care Team Providers Care Dairy Worker Name Role Phone DANIEL GOVEA Unavailable PROBLEMS Type Condition ICD9-CM Code [id number] Code Onset Dates Condition Status SNOMED Code Problem Depressive disorder, not elsewhere classified F32.9 Active 09871356 Problem Irregular menses N92.6 Active 60693879 Problem Teeth missing, unspecified edentulism K08.109 Active 22109769 Problem Dysfunction of eustachian tube H69.80 Active 48488949 Problem Tobacco use Z72.0 Active 341534098 Problem Acne, unspecified L70.9 Active 30860910 Problem Depression, unspecified depression type F32.9 Active 16126607 Problem Family history of diabetes mellitus Z83.3 Active 082649556 Problem Desire for Z31.9 Active 128219765 ALLERGIES Substance Reaction Event Type Date Status Tylenol rash Drug Allergy Jun, Active SOCIAL HISTORY No smoking Hx information available PLAN OF CARE Activity Details Follow Up prn Reason: VITAL SIGNS Height 66 in 2016-07-10 Weight 177.8 lbs 2016-07-10 Temperature 97.4 degrees Fahrenheit 2016-07-10 Heart Rate 84 bpm 2016-07-10 Respiratory Rate 20 2016-07-10 BMI 28.69 kg/m2 2016-07-10 Blood pressure systolic 110 mmHg 2016-07-10 Blood pressure diastolic 70 mmHg 2016-07-10 MEDICATIONS Medication Instructions Dosage Frequency Start Date End Date Duration Status Claritin 10 MG Orally Once a day 1 tablet 24h Jun, 30 day(s) Active 1 30-0.975-200 MG Active RESULTS No Results PROCEDURES Procedure Date Ordered Related Diagnosis Body Site Office Visit, Est Pt., Level 3 Jul 10, 2016 IMMUNIZATIONS No Known Immunizations
[2017-03-12 22:30] VITALS: BP 0/0
[2017-03-12] MEDS ORDERED: diphenhydrAMINE 25 MG TAB (BENADRYL) PO ONE (22:30)
[2017-03-12] MEDS ORDERED: PRD10T PO (22:31)
--- NOTE | 2017-03-12 22:31 | ED Integumentary General ---
General Chief Complaint: Allergic Reaction Stated Complaint: POSSIBLE HIVES Nursing Triage Note: PT TO ED 10 W/ C/O BLE RASH ONSET THIS AM WHILE AT WORK. REPORTS SHE WAS SEEN AT [facility] AT 1930 THIS EVENING, GIVEN A STEROID SHOT, ET TOLD TO TAKE BENADRYL, WHICH SHE DENIES TAKING, AND DENIES IMPROVEMENT. History of Present Illness Time seen by provider: 22:20 Initial Comments Rash to ankles wrist and shoulders. Patient initially says that it began today while at work. However later in the exam the patient reports that she put Band- Aids on the rash last night to keep from itching in her sleep. She is already been treated with a steroid injection and Benadryl at 2030 tonight Timing/Duration: yesterday Severity: mild Location: extremities (upper and lower) Possible Cause: no cause identified Associated Symptoms: denies symptoms Allergies and Home Medications Allergies Coded Allergies: acetaminophen (Unverified Allergy, Unknown, HIVES, 06/13/16) Home Medications Dapsone 25 Mg Tablet, 50 MG PO BID, #20 Ref 0 Prescribed by: FARHAN STARKS on 03/04/17 1135 Hydrocodone/Chlorphen P-Stirex 115 Ml Mariola.er.12h, 5 ML PO Q12H PRN for COUGH/ CONGESTION, #120 Ref 0 Prescribed by: HIREN DIEHL on 02/14/17 1100 Prednisone 20 Mg Tab, 30 MG PO BID for 5 Days, #15 Ref 0 Prescribed by: HIREN DIEHL on 02/14/17 1100 Prednisone 10 Mg Tab, 20 MG PO DAILY, #10 Ref 0 Prescribed by: CHARLIE COLLINS on 03/12/17 2231 Sulfamethoxazole/Trimethoprim 1 Each Tablet, 1 EACH PO BID, #14 Ref 0 Prescribed by: FRAHAN STARKS on 03/04/17 1135 Constitutional: no symptoms reported, see HPI Skin: see HPI, rash All Other Systems Reviewed Negative Unless Noted: Yes Past Yvdccjj-Imoubq-Lwseig Hx Patient Social History Alcohol Use: Occasionally Uses Recreational Drug Use: No Smoking Status: Current Everyday Smoker Type Used: Cigarettes Recent Foreign Travel: No Contact w/Someone Who Travel: No Recent Infectious Disease Expo: No Recent Hopitalizations: No Physical Abuse: No Sexual Abuse: No Mistreated: No Fear: No Immunizations Up To Date Tetanus Booster (TDap): Less than 5yrs PED Vaccines UTD: Yes Date of Pneumonia Vaccine: Apr 12, 2013 Date of Influenza Vaccine: Apr 12, 2016 Seasonal Allergies Seasonal Allergies: No Surgeries History of Surgeries: Yes (TEETH REMOVED) Respiratory History of Respiratory Disorde: No Cardiovascular History of Cardiac Disorders: No Neurological History of Neurological Disord: Yes (SEIZURES PER PT--NO PHYSICAN DOCUMENTED SEIZURES) Neurological Disorders: Seizure Disorder Reproductive System Hx Reproductive Disorders: Yes (CHRONIC PELVIC PAIN ) Sexually Transmitted Disease: No HIV/AIDS: No Female Reproductive Disorders: Menstrual Problems, Pelvic Inflammatory Dis, Endometriosis Genitourinary History of Genitourinary Disor: No Genitourinary Disorders: Bladder Infection Gastrointestinal History of Gastrointestinal Di: No Musculoskeletal History of Musculoskeletal Dis: No Endocrine History of Endocrine Disorders: Yes ("HYPOGLYCEMIC" PER PT) HEENT History of HEENT Disorders: No Cancer History of Cancer: No Psychosocial History of Psychiatric Problem: No Suicide Risk Score: 0 Integumentary History of Skin or Integumenta: No Blood Transfusions History of Blood Disorders: No Adverse Reaction to a Blood Tr: No Reviewed Nursing Assessment Reviewed/Agree w Nursing PMH: Yes Family Medical History Significant Family History: No Pertinent Family Hx Physical Exam Vital Signs Vital Sign - Last 12Hours 03/12/17 22:09 Temp 97.6 Pulse 64 Resp 18 B/P (MAP) 114/74 Pulse Ox 98 O2 Delivery Room Air Capillary Refill : Less Than 3 Seconds General Appearance: WD/WN, no apparent distress Cardiovascular: normal peripheral pulses, regular rate, rhythm, no edema Respiratory: chest non-tender, lungs clear, normal breath sounds Skin: normal color, warm/dry Skin Problem Location: upper extremities, lower extremities Skin Problem Character: macules, papules Lymphatic: no adenopathy Progress/Results/Core Measures Results/Orders My Orders Orders - CHARLIE COLLINS Diphenhydramine Tablet (Benadryl Tablet) (03/12/17 22:30) Vital Signs/I&O Vital Sign - Last 12Hours 03/12/17 22:09 Temp 97.6 Pulse 64 Resp 18 B/P (MAP) 114/74 Pulse Ox 98 O2 Delivery Room Air Blood Pressure Mean: 87 Departure Impression Impression: Primary Impression: Contact dermatitis Qualified Codes: L24.9 - Irritant contact dermatitis, unspecified cause Disposition: 01 HOME, SELF-CARE Condition: Stable Departure-Patient Inst. Decision time for Depature: 22:30 Referrals: TORI GRAY MD (PCP/Family) Primary Care Physician Patient Instructions: Skin Rash (DC) Add. Discharge Instructions: Apply hydrocortisone cream every 6-8 hours to affected areas. Use Aveeno soaks to help with the itching. Benadryl 25-50 mg every 8 hours for itching. [facility] All discharge instructions reviewed with patient and/or family. Voiced understanding. Scripts Prednisone (Prednisone) 10 Mg Tab 20 MG PO DAILY, #10 TAB 0 Refills Prov: CHARLIE COLLINS 03/12/17 CHARLIE COLLINS Mar 12, 2017 22:31
== END 2017-03-12 22:30 | disposition home or self-care (01) ==
LOC: EDUNIT# 22:03 → ER 22:04
DX: L25.9 Unspecified contact dermatitis, unspecified cause (principal); G40.909 Epilepsy, unspecified, not intractable, without status epilepticus; F17.210 Nicotine dependence, cigarettes, uncomplicated; Z87.448 Personal history of other diseases of urinary system; Z87.09 Personal history of other diseases of the respiratory system
CPT/HCPCS: 99282

== ENCOUNTER 2017-03-15 19:45 | Emergency (ER) | payer MEDICAID ==
[~2017-03-15 19:45] MED LIST changes: +PRD10T PO
== END 2017-03-15 20:13 | disposition left against medical advice (07) ==
LOC: EDUNIT# 19:45 → ER 19:48
DX: S40.869A Insect bite (nonvenomous) of unspecified upper arm, initial encounter (principal); W57.XXXA Bitten or stung by nonvenomous insect and other nonvenomous arthropods, initial encounter

== ENCOUNTER 2017-07-04 06:41 | Emergency (ER) | payer SELFPAY ==
[~2017-07-04] VITALS: Ht 160 cm; Wt 65.8 kg
[~2017-07-04 06:41] MED LIST changes: +NAPR-1071 PO; -NAPR500T PO
--- OUTSIDE RECORDS SUMMARY | 2017-07-04 06:46 | XMS REPORT ---
Author Author TORI GRAY [facility] Address [address] [place] [address] Care Team Providers Care Varnish Blender Name Role Phone TORI GRAY Unavailable PROBLEMS Type Condition ICD9-CM Code [id number] Code Onset Dates Condition Status SNOMED Code Problem Depressive disorder, not elsewhere classified F32.9 Active 73372011 Problem Depression, unspecified depression type F32.9 Active 89440913 Problem Teeth missing, unspecified edentulism K08.109 Active 65020378 Problem Acne, unspecified L70.9 Active 20138364 Problem Tobacco use Z72.0 Active 657764243 Problem Desire for Z31.9 Active 498880037 Problem Dysfunction of eustachian tube H69.80 Active 82918726 Problem Family history of diabetes mellitus Z83.3 Active 461056944 Problem Irregular menses N92.6 Active 72002956 ALLERGIES No Information SOCIAL HISTORY Never Assessed PLAN OF CARE VITAL SIGNS MEDICATIONS Unknown Medications RESULTS No Results PROCEDURES No Known procedures IMMUNIZATIONS No Known Immunizations MEDICAL (GENERAL) HISTORY Type Description Date Medical History hypoglycemia Hospitalization History childbirth x3
--- OUTSIDE RECORDS SUMMARY | 2017-07-04 06:48 | XMS REPORT ---
Author Author OTRI GRAY Organization [facility] Address [address] [place] [address] Care Team Providers Care Limo Driver Name Role Phone TORI GRAY Unavailable PROBLEMS Type Condition ICD9-CM Code [id number] Code Onset Dates Condition Status SNOMED Code Problem Depressive disorder, not elsewhere classified F32.9 Active 67701868 Problem Depression, unspecified depression type F32.9 Active 59427792 Problem Teeth missing, unspecified edentulism K08.109 Active 89325830 Problem Acne, unspecified L70.9 Active 32574306 Problem Tobacco use Z72.0 Active 699031358 Problem Desire for Z31.9 Active 682739914 Problem Dysfunction of eustachian tube H69.80 Active 61767041 Problem Family history of diabetes mellitus Z83.3 Active 578016009 Problem Irregular menses N92.6 Active 12049803 ALLERGIES Unknown Allergies SOCIAL HISTORY No smoking Hx information available PLAN OF CARE VITAL SIGNS MEDICATIONS Unknown Medications RESULTS No Results PROCEDURES No Known procedures IMMUNIZATIONS No Known Immunizations
--- OUTSIDE RECORDS SUMMARY | 2017-07-04 06:49 | XMS REPORT ---
Author Author TORI GRAY [facility] Address [address] [place] [address] Care Team Providers Care Laminating Machine Offbearer Name Role Phone TORI GRAY Unavailable PROBLEMS Type Condition ICD9-CM Code [id number] Code Onset Dates Condition Status SNOMED Code Problem Depressive disorder, not elsewhere classified F32.9 Active 31395396 Problem Depression, unspecified depression type F32.9 Active 68349600 Problem Teeth missing, unspecified edentulism K08.109 Active 04278115 Problem Acne, unspecified L70.9 Active 61414057 Problem Tobacco use Z72.0 Active 565831327 Problem Desire for Z31.9 Active 788685201 Problem Dysfunction of eustachian tube H69.80 Active 02897123 Problem Family history of diabetes mellitus Z83.3 Active 113316842 Problem Irregular menses N92.6 Active 63644585 ALLERGIES No Information SOCIAL HISTORY Never Assessed PLAN OF CARE VITAL SIGNS MEDICATIONS Unknown Medications RESULTS No Results PROCEDURES No Known procedures IMMUNIZATIONS No Known Immunizations MEDICAL (GENERAL) HISTORY Type Description Date Medical History hypoglycemia Hospitalization History childbirth x3
--- OUTSIDE RECORDS SUMMARY | 2017-07-04 06:49 | XMS REPORT ---
Author Author TORI GRAY Organization [facility] Address [address] [place] [address] Care Team Providers Care Lacrosse Coach Name Role Phone TORI GRAY Unavailable PROBLEMS Type Condition ICD9-CM Code VHB51-KH Code Onset Dates Condition Status SNOMED Code Problem Depressive disorder, not elsewhere classified F32.9 Active 39890707 Problem Depression, unspecified depression type F32.9 Active 56900590 Problem Teeth missing, unspecified edentulism K08.109 Active 98771255 Problem Acne, unspecified L70.9 Active 73125361 Problem Tobacco use Z72.0 Active 141892364 Problem Desire for Z31.9 Active 304633932 Problem Dysfunction of eustachian tube H69.80 Active 85988535 Problem Family history of diabetes mellitus Z83.3 Active 337052893 Problem Irregular menses N92.6 Active 25222913 ALLERGIES Unknown Allergies SOCIAL HISTORY No smoking Hx information available PLAN OF CARE VITAL SIGNS MEDICATIONS Unknown Medications RESULTS No Results PROCEDURES No Known procedures IMMUNIZATIONS No Known Immunizations
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
[2017-07-04] MEDS ORDERED: GUAI120L56 PO (07:46)
--- NOTE | 2017-07-04 07:46 | ED Cough/URI ---
General Chief Complaint: Cough/Cold/Flu Symptoms Stated Complaint: COUGHING,CHEST & THROAT PAIN Nursing Triage Note: ARRIVED VIA AMB WITH COMPLAINTS COLD SX X1 WEEK. Source: patient Exam Limitations: no limitations History of Present Illness Time seen by provider: 07:34 Initial Comments Patient present to ER with one week of cough, malaise. Denies short of breath, fever, nausea, vomiting, diarrhea. She has not had a flu shot and does not have any known sick contacts. No history of asthma. She does smoke about half pack per day. Allergies and Home Medications Allergies Coded Allergies: acetaminophen (Unverified Allergy, Unknown, HIVES, 06/13/16) Home Medications No Active Prescriptions or Reported Meds Constitutional: No chills, No fever, malaise EENTM: No ear discharge, No ear pain Respiratory: cough, phlegm, No short of breath Cardiovascular: No chest pain, No palpitations Gastrointestinal: No abdominal pain, No nausea, No vomiting Past Fglzuuy-Vitgxm-Avpizr Hx Patient Social History Alcohol Use: Denies Use Recreational Drug Use: No Smoking Status: Current Everyday Smoker Type Used: Cigarettes Recent Foreign Travel: No Contact w/Someone Who Travel: No Recent Infectious Disease Expo: No Recent Hopitalizations: No Immunizations Up To Date Tetanus Booster (TDap): Less than 5yrs PED Vaccines UTD: Yes Date of Pneumonia Vaccine: Apr 12, 2013 Date of Influenza Vaccine: Apr 12, 2016 Seasonal Allergies Seasonal Allergies: No Surgeries History of Surgeries: Yes (TEETH REMOVED) Respiratory History of Respiratory Disorde: No Cardiovascular History of Cardiac Disorders: No Neurological History of Neurological Disord: Yes (SEIZURES PER PT--NO PHYSICAN DOCUMENTED SEIZURES) Neurological Disorders: Seizure Disorder Reproductive System Last Menstrual Period: Jul 02, 2017 Hx Reproductive Disorders: Yes (CHRONIC PELVIC PAIN ) Sexually Transmitted Disease: No HIV/AIDS: No Female Reproductive Disorders: Menstrual Problems, Pelvic Inflammatory Dis, Endometriosis Genitourinary History of Genitourinary Disor: No Genitourinary Disorders: Bladder Infection Gastrointestinal History of Gastrointestinal Di: No Musculoskeletal History of Musculoskeletal Dis: No Endocrine History of Endocrine Disorders: Yes ("HYPOGLYCEMIC" PER PT) HEENT History of HEENT Disorders: No Cancer History of Cancer: No Psychosocial History of Psychiatric Problem: No Integumentary History of Skin or Integumenta: No Blood Transfusions History of Blood Disorders: No Adverse Reaction to a Blood Tr: No Family Medical History Significant Family History: No Pertinent Family Hx Physical Exam Vital Signs Vital Sign - Last 12Hours 07/04/17 06:56 Temp 96.8 Pulse 91 Resp 18 B/P (MAP) 126/82 (97) Pulse Ox 98 Capillary Refill : Less Than 3 Seconds General Appearance: WD/WN, no apparent distress Eyes: Bilateral Eye Normal Inspection, Bilateral Eye PERRL, Bilateral Eye EOMI HEENT: PERRL/EOMI, normal ENT inspection, TMs normal, pharynx normal Neck: non-tender, full range of motion, supple Respiratory: chest non-tender, lungs clear, normal breath sounds, no respiratory distress Cardiovascular: normal peripheral pulses, regular rate, rhythm, no edema Progress/Results/Core Measures Suspected Sepsis Recent Fever Within 48 Hours: No Infection Criteria Present: Suspected New Infection New/Unexplained Altered Menta: No Sepsis Screen: No Definite Risk Sepsis Diagnosis: SIRS Temperature:96.8 Pulse: 91 Respiratory Rate: 18 Blood Pressure 126 /82 Mean: 97 Results/Orders Vital Signs/I&O Vital Sign - Last 12Hours 07/04/17 06:56 Temp 96.8 Pulse 91 Resp 18 B/P (MAP) 126/82 (97) Pulse Ox 98 Capillary Refill : Less Than 3 Seconds Blood Pressure Mean: 97 Progress Note : Time: 07:43 Progress Note Discussed offering a chest x-ray and throat swab the patient declines at this time. Discussed the most likely cause of her symptoms is a virus and we discussed conservative care. Departure Impression Impression: Primary Impression: Upper respiratory infection Qualified Codes: J06.9 - Acute upper respiratory infection, unspecified; B97.89 - Other viral agents as the cause of diseases classified elsewhere Disposition: 01 HOME, SELF-CARE Condition: Stable Departure-Patient Inst. Decision time for Depature: 07:43 Referrals: TORI GRAY MD (PCP/Family) Primary Care Physician Patient Instructions: Cough, Runny Nose, and the Common Cold (DC) Add. Discharge Instructions: Please get plenty of sleep, Tylenol 1000 g every 8 hours or ibuprofen 800 mg every 8 hours for the body aches or headache. Use humidifiers, vapor rubs and keep heat down in the house. Reduce smoking or quit at least temporarily to help get over this. Typical viruses last 5-7 days however they can radha chain one to the other. If your symptoms get worse she should follow-up with her primary care physician. All discharge instructions reviewed with patient and/or family. Voiced understanding. Scripts Guaifenesin/Codeine Phosphate (Codeine-Guaifen 10-100 mg/5 ml) 120 Ml Liquid 5 ML PO Q6H Y for COUGH, #120 EA 0 Refills Prov: JANET LUTZ 07/04/17 Copy Copies To 1: TORI GRAY MD, TITUS J Jul 04, 2017 07:46
[2017-07-04 08:03] VITALS: BP 126/82
== END 2017-07-04 08:03 | disposition home or self-care (01) ==
LOC: EDUNIT# 06:41 → ER 06:43
DX: J06.9 Acute upper respiratory infection, unspecified (principal); G40.909 Epilepsy, unspecified, not intractable, without status epilepticus; F17.210 Nicotine dependence, cigarettes, uncomplicated; Z87.448 Personal history of other diseases of urinary system
CPT/HCPCS: 99282

== ENCOUNTER → 2017-09-23 | Outpatient (CLI) | payer SELFPAY ==
[~2017-09-23] MED LIST changes: +GUAI120L56 PO
--- NOTE | 2017-09-23 10:32 | Diagnostic Imaging Report ---
PROCEDURE: US OB SINGLE FETUS <14 WKS. TECHNIQUE: Multiple Real-time grayscale images were obtained over the gravid uterus in various projections. INDICATION: Vaginal bleeding. FINDINGS: There is a odell intrauterine gestation with a heart rate of 113 BPM measuring 6 weeks 1 day for a sonographic date of confinement of 05/18/2018. Eccentric to the left is a felipe-sac subchorionic collection, presumed hemorrhage, measuring 2.4 x 2.3 x 2.2 cm. This is almost the size of the gestational sac itself and followup is recommended. IMPRESSION: Early odell intrauterine gestation of 6 weeks 1 day. Relatively prominent left paramedian subchorionic hemorrhage with dimensions as above. Followup is recommended. Dictated by: Dictated on workstation # [id number]
== END ==
LOC: RAD 09:45
PROVIDERS: ATTEND Family Medicine
DX: O20.8 Other hemorrhage in early pregnancy (principal); Z3A.01 Less than 8 weeks gestation of pregnancy
CPT/HCPCS: 36415; 76801; 84702

== ENCOUNTER 2017-09-28 12:50 | Emergency (ER) | payer SELFPAY ==
[~2017-09-28] VITALS: Ht 160 cm; Wt 65.8 kg
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
--- NOTE | 2017-09-28 15:00 | ED Abdominal Pain ---
General Chief Complaint: -Female Stated Complaint: 7 WEEKS PG BLEEDING,CRAMPING Source of Information: Patient Exam Limitations: No Limitations History of Present Illness Date Seen by Provider: Sep 28, 2017 Time Seen by Provider: 14:58 Initial Comments To ER with reports of suprapubic abdominal cramping, vaginal bleeding intermittently. She also noticed "a hole that shouldn't be there" on her labia. Timing/Duration: 2-3 Days Severity/Quality: Moderate Activities at Onset: None Allergies and Home Medications Allergies Coded Allergies: acetaminophen (Unverified Allergy, Unknown, HIVES, 06/13/16) Home Medications Clindamycin HCl 150 Mg Capsule, 300 MG PO TID Prescribed by: VESTA BISHOP on 09/28/17 1630 Guaifenesin/Codeine Phosphate 120 Ml Liquid, 5 ML PO Q6H PRN for COUGH Prescribed by: JANET LUTZ on 07/04/17 0746 Patient Home Medication List Home Medication List Reviewed: Yes Review of Systems Constitutional: see HPI EENTM: No Symptoms Reported Respiratory: No Symptoms Reported Cardiovascular: No Symptoms Reported Gastrointestinal: No Symptoms Reported Genitourinary: No Symptoms Reported Musculoskeletal: no symptoms reported Skin: no symptoms reported Psychiatric/Neurological: No Symptoms Reported Endocrine: No Symptoms Reported Hematologic/Lymphatic: No Symptoms Reported Past Sudovru-Igshwn-Rwdmkq Hx Patient Social History Type Used: Cigarettes Recent Foreign Travel: No Contact w/Someone Who Travel: No Recent Hopitalizations: No Immunizations Up To Date Tetanus Booster (TDap): Less than 5yrs PED Vaccines UTD: Yes Date of Pneumonia Vaccine: Apr 12, 2013 Date of Influenza Vaccine: Apr 12, 2016 Seasonal Allergies Seasonal Allergies: No Surgeries History of Surgeries: Yes (TEETH REMOVED) Respiratory History of Respiratory Disorde: No Cardiovascular History of Cardiac Disorders: No Neurological History of Neurological Disord: Yes (SEIZURES PER PT--NO PHYSICAN DOCUMENTED SEIZURES) Neurological Disorders: Seizure Disorder Reproductive System Hx Reproductive Disorders: Yes (CHRONIC PELVIC PAIN ) Sexually Transmitted Disease: No HIV/AIDS: No Female Reproductive Disorders: Menstrual Problems, Pelvic Inflammatory Dis, Endometriosis Genitourinary History of Genitourinary Disor: No Genitourinary Disorders: Bladder Infection Gastrointestinal History of Gastrointestinal Di: No Musculoskeletal History of Musculoskeletal Dis: No Endocrine History of Endocrine Disorders: Yes ("HYPOGLYCEMIC" PER PT) HEENT History of HEENT Disorders: No Cancer History of Cancer: No Psychosocial History of Psychiatric Problem: No Integumentary History of Skin or Integumenta: No Blood Transfusions History of Blood Disorders: No Adverse Reaction to a Blood Tr: No Family Medical History Significant Family History: No Pertinent Family Hx Physical Exam Vital Signs VS - Last 72 Hours, by Label 09/28/17 09/28/17 09/28/17 09/28/17 14:56 16:44 16:45 16:55 Temp 96.9 96.9 96.9 96.9 Pulse 80 76 Resp 20 18 B/P (MAP) 112/58 (76) 115/61 (76) Pulse Ox 100 99 O2 Delivery Room Air Room Air Capillary Refill : General Appearance: WD/WN, no apparent distress HEENT: PERRL/EOMI, normal ENT inspection Neck: non-tender, full range of motion Respiratory: no respiratory distress, no accessory muscle use Cardiovascular: regular rate, rhythm, no murmur Gastrointestinal: normal bowel sounds, non tender Genital/Rectal: other (pelvic exam done with Brittney patient field care coordinator at the bedside. There is foul-smelling vaginal discharge yellowish-whitish in color. There is cervical motion tenderness. There is a single ulcerated tender lesion at the inferior aspect of the clitoris) Extremities: normal range of motion, non-tender Neurologic/Psychiatric: alert, normal mood/affect, oriented x 3 Skin: normal color, warm/dry Progress/Results/Core Measures Results/Orders Lab Results Laboratory Tests Test 09/28/17 15:05 09/28/17 15:12 09/28/17 15:27 Range/Units Urine Color YELLOW Urine Clarity VERY CLOUDY H Urine pH 8 5-9 Urine Specific [place] 1.010 L 1.016-1.022 Urine Protein 2+ H NEGATIVE Urine Glucose (UA) NEGATIVE NEGATIVE Urine Ketones NEGATIVE NEGATIVE Urine Nitrite NEGATIVE NEGATIVE Urine Bilirubin NEGATIVE NEGATIVE Urine Urobilinogen NORMAL NORMAL MG/DL Urine Leukocyte Esterase 3+ H NEGATIVE Urine RBC (Auto) 2+ H NEGATIVE Urine RBC 2-5 H /HPF Urine WBC TNTC H /HPF Urine Squamous Epithelial Cells 25-50 H /HPF Urine Crystals NONE /LPF Urine Bacteria LARGE H /HPF Urine Casts NONE /LPF Urine Mucus NEGATIVE /LPF Urine Culture Indicated YES White Blood Count 12.9 H 4.3-11.0 10^3/uL Red Blood Count 4.36 4.35-5.85 10^6/uL Hemoglobin 13.2 11.5-16.0 G/DL Hematocrit 38 35-52 % Mean Corpuscular Volume 87 80-99 FL Mean Corpuscular Hemoglobin 30 25-34 PG Mean Corpuscular Hemoglobin Concent 35 32-36 G/DL Red Cell Distribution Width 12.7 10.0-14.5 % Platelet Count 346 130-400 10^3/uL Mean Platelet Volume 10.9 H 7.4-10.4 FL Neutrophils (%) (Auto) 68 42-75 % Lymphocytes (%) (Auto) 26 12-44 % Monocytes (%) (Auto) 4 0-12 % Eosinophils (%) (Auto) 2 0-10 % Basophils (%) (Auto) 1 0-10 % Neutrophils # (Auto) 8.7 H 1.8-7.8 X 10^3 Lymphocytes # (Auto) 3.3 1.0-4.0 X 10^3 Monocytes # (Auto) 0.6 0.0-1.0 X 10^3 Eosinophils # (Auto) 0.2 0.0-0.3 10^3/uL Basophils # (Auto) 0.1 0.0-0.1 10^3/uL Human Chorionic Gonadotropin, Quant 96800 H <5 MIU/ML Micro Results Microbiology 09/28/17 Genital Culture, Resulted Pending 09/28/17 Wet Prep - Final, Resulted My Orders Orders - VESTA BISHOP APRN Ua Culture If Indicated (09/28/17 14:57) Urine Bedside (09/28/17 15:06) Wet Prep (09/28/17 15:14) Neisseria Gonorrhea Dna (09/28/17 15:14) Chlamydia Dna (09/28/17 15:14) Genital Culture (09/28/17 15:14) Virus Culture (09/28/17 15:14) Syphilis Antibody Screen (09/28/17 15:14) Lidocaine 2% Jelly 30 Ml (Xylocaine Jell (09/28/17 15:15) Ceftriaxone Injection (Rocephin Injectio (09/28/17 15:45) Lidocaine 1% Injection (Xylocaine 1% Inj (09/28/17 15:45) Azithromycin Tablet (Zithromax Tablet) (09/29/17 09:00) Urine Culture (09/28/17 15:05) Lidocaine Pf 1% 5 Ml Injection (Xylocain (09/28/17 16:31) Lidocaine 2% Viscous 15 Ml (Xylocaine Vi (09/28/17 16:45) Lidocaine 2% Viscous 15 Ml (Xylocaine Vi (09/28/17 16:33) Azithromycin Tablet (Zithromax Tablet) (09/28/17 16:45) Lidocaine 2% Viscous 15 Ml (Xylocaine Vi (09/28/17 16:45) Medications Given in ED Current Medications Medications Dose Ordered Sig/Jaziel Route Start Time Stop Time Status Last Admin Dose Admin Ceftriaxone Sodium 1,000 mg ONCE ONCE IM 09/28/17 15:45 09/28/17 15:46 DC 09/28/17 16:44 1,000 MG Lidocaine HCl 2.1 ml ONCE ONCE INJ 09/28/17 15:45 09/28/17 15:46 DC 09/28/17 16:45 2.1 ML Lidocaine HCl 15 ml ONCE ONCE PO 09/28/17 16:45 09/28/17 16:46 DC 09/28/17 16:45 15 ML Lidocaine HCl 15 ml PRN PRN MM 09/28/17 16:45 09/28/17 16:53 DC 09/28/17 16:49 15 ML Vital Signs/I&O Vital Sign - Last 12Hours 09/28/17 09/28/17 09/28/17 09/28/17 14:56 16:44 16:45 16:55 Temp 96.9 96.9 96.9 96.9 Pulse 80 76 Resp 20 18 B/P (MAP) 112/58 (76) 115/61 (76) Pulse Ox 100 99 O2 Delivery Room Air Room Air Departure Communication (Admissions) Progress Notes Patient's beta hCG is rising appropriately. She is without fevers chills or significant leukocytosis so I'm not worried about tubo-ovarian abscess. We do not need to repeat an ultrasound from surgical standpoint. She's had this done to confirm intrauterine . Impression Impression: Primary Impression: Urinary tract infection Additional Impressions: PID (acute pelvic inflammatory disease) Genital ulcer, female Disposition: 01 HOME, SELF-CARE Condition: Stable Departure-Patient Inst. Decision time for Depature: 15:55 Referrals: TORI GRAY MD (PCP/Family) Primary Care Physician Patient Instructions: Pelvic Inflammatory Disease (DC), Urinary Tract Infection , Adult (DC) Add. Discharge Instructions: 1. Return to ER for any concerns 2. Follow up with Dr Gray later this week for recheck. All discharge instructions reviewed with patient and/or family. Voiced understanding. Scripts Clindamycin HCl (Clindamycin HCl) 150 Mg Capsule 300 MG PO TID, #42 CAP Prov: VESTA BISHOP APRN 09/28/17 Copy Copies To 1: TORI GRAY MD, PETER J APRN Sep 28, 2017 15:00
[2017-09-28] MEDS ORDERED: LIDOCAINE JELLY 2% (XYLOCAINE) 30 ML TUBE TOP ONE (15:15)
[2017-09-28 15:21] LABS: BILIRUBIN,URINE NEGATIVE (NEGATIVE); CLARITY,URINE VERY CLOUDY; COLOR,URINE YELLOW; GLUCOSE, URINE (UA) NEGATIVE (NEGATIVE); KETONES,URINE NEGATIVE (NEGATIVE); LEUKOCYTE ESTERASE ,URINE 3+ (NEGATIVE); NITRITE,URINE NEGATIVE (NEGATIVE); PH,URINE 8 (5-9); PROTEIN,URINE 2+ (NEGATIVE); UROBILINOGEN,URINE NORMAL (NORMAL)
[2017-09-28 15:21] LABS: BASOPHILS # (AUTO) 0.1 10^3/uL (0.0-0.1); BASOPHILS % (AUTO) 1 % (0-10); EOSINOPHILS # (AUTO) 0.2 10^3/uL (0.0-0.3); EOSINOPHILS % (AUTO) 2 % (0-10); HEMATOCRIT 38 % (35-52); HEMOGLOBIN 13.2 G/DL (11.5-16.0); LYMPHOCYTES # (AUTO) 3.3 X 10^3 (1.0-4.0); LYMPHOCYTES % (AUTO) 26 % (12-44); MEAN CORPUSCULAR HEMOGLOBIN 30 PG (25-34); MEAN CORPUSCULAR HGB CONC 35 G/DL (32-36); MEAN CORPUSCULAR VOLUME 87 FL (80-99); MEAN PLATELET VOLUME 10.9 FL (7.4-10.4); MONOCYTES # (AUTO) 0.6 X 10^3 (0.0-1.0); MONOCYTES % (AUTO) 4 % (0-12); NEUTROPHILS # (AUTO) 8.7 X 10^3 (1.8-7.8); NEUTROPHILS % (AUTO) 68 % (42-75); PLATELET COUNT 346 10^3/uL (130-400); RED BLOOD COUNT 4.36 10^6/uL (4.35-5.85); RED CELL DISTRIBUTION WIDTH 12.7 % (10.0-14.5); WHITE BLOOD COUNT 12.9 10^3/uL (4.3-11.0)
[2017-09-28] MEDS ORDERED: cefTRIAXone 1 GM (ROCEPHIN) VIAL IM ONE (15:45)
[2017-09-28] MEDS ORDERED: LIDOCAINE 1% INJ 20 ML (XYLOCAINE) VIAL INJ ONE (15:45)
[2017-09-28 15:49] LABS: BACTERIA,URINE LARGE /HPF; SQUAMOUS EPITHELIAL CELL,UR 25-50 /HPF; WBC,URINE TNTC /HPF
[2017-09-28] MEDS ORDERED: CLIN150C17 PO (16:30)
[2017-09-28] MEDS ORDERED: LIDOCAINE PF 1% 5 ML (XYLOCAINE) AMP ONE (16:31)
[2017-09-28] MEDS ORDERED: LIDOCAINE 2% VISCOUS 15 ML UDC ONE (16:33)
[2017-09-28] MEDS ORDERED: AZITHROMYCIN 250 MG TAB (ZITHROMAX) PO SCH (16:45)
[2017-09-28] MEDS ORDERED: LIDOCAINE 2% VISCOUS 15 ML UDC PO ONE (16:45)
[2017-09-28] MEDS ORDERED: LIDOCAINE 2% VISCOUS 15 ML UDC MM PRN (16:45)
[2017-09-28 16:55] VITALS: BP 115/61
[2017-09-29] MEDS ORDERED: AZITHROMYCIN 250 MG TAB (ZITHROMAX) PO SCH (09:00)
== END 2017-09-28 16:53 | disposition home or self-care (01) ==
LOC: EDUNIT# 12:50 → ER 12:53
DX: O23.41 Unspecified infection of urinary tract in pregnancy, first trimester (principal); O23.591 Infection of other part of genital tract in pregnancy, first trimester; O99.351 Diseases of the nervous system complicating pregnancy, first trimester; G40.909 Epilepsy, unspecified, not intractable, without status epilepticus; Z88.6 Allergy status to analgesic agent; Z3A.01 Less than 8 weeks gestation of pregnancy
CPT/HCPCS: 36415; 81000; 84702; 85025; 86780; 87070; 87088; 87210; 87252; 87491; 87591; 96372; 99284

== ENCOUNTER 2017-10-02 13:38 | Emergency (ER) | payer SELFPAY ==
[~2017-10-02] VITALS: Ht 167.6 cm; Wt 63.5 kg
[~2017-10-02 13:38] MED LIST changes: +CLIN150C17 PO
--- OUTSIDE RECORDS SUMMARY | 2017-10-02 13:46 | XMS REPORT ---
Author Author TORI GRAY Organization [facility] Address [address] [place] [address] Care Team Providers Care Grinder Dresser Name Role Phone TORI GRAY Unavailable PROBLEMS Type Condition ICD9-CM Code HSN14-SS Code Onset Dates Condition Status SNOMED Code Problem Depressive disorder, not elsewhere classified F32.9 Active 02143761 Problem Depression, unspecified depression type F32.9 Active 15559543 Problem Teeth missing, unspecified edentulism K08.109 Active 11334762 Problem Acne, unspecified L70.9 Active 31616403 Problem Tobacco use Z72.0 Active 341552444 Problem Desire for Z31.9 Active 970038493 Problem Dysfunction of eustachian tube H69.80 Active 07857287 Problem Family history of diabetes mellitus Z83.3 Active 018796991 Problem Irregular menses N92.6 Active 01622952 ALLERGIES No Information ENCOUNTERS Encounter Location Date Diagnosis [facility] [address] [id number] May, [facility] [id number] [place] [address] [id number] Apr, [facility] [id number] [place] [address] [id number] Mar, [facility] [address] [id number] Mar, [facility] [id number] [place] [address] [id number] Mar, [facility] [address] [phone] Feb, Acute urticaria L50.8 [facility] [id number] [place] [address] [phone] Feb, [facility] [address] [id number] Feb, [facility] [place] [address] [id number] [place] [id number] Feb, [facility] [place] [address] [id number] [place] [id number] Feb, [facility] [place] [address] [id number] [place] [id number] Jan, [facility] [place] [address] [id number] [place] [id number] Dec, [facility] [place] [address] [id number] [place] [id number] Dec, [facility] [place] [address] [id number] [place] [phone] Dec, [facility] [place] [address] [id number] [place] [id number] Dec, [facility] [place] [address] [id number] [place] [id number] Dec, [facility] [place] [address] [id number] [place] [id number] November, [facility] [place] [address] [id number] [place] [phone] November, [facility] [place] [address] [id number] [place] [phone] November, [facility] [place] [address] [id number] [place] [phone] November, [facility] [place] [address] [id number] [place] [phone] Oct, [facility] [place] [address] [id number] [place] [phone] Oct, [facility] [place] [address] [id number] [place] [phone] Oct, [facility] [id number] [phone] Oct, Sore throat J02.9 and Viral pharyngitis J02.9 [facility] [place] [address] [id number] [place] [phone] Oct, [facility] [place] [address] [id number][place] [id number] Aug, [facility] [id number] [place] [address] [id number] Aug, [facility] [id number] [place] [address] [id number] Aug, [facility] [id number] [place] [address] [id number] Jul, [place] [address] [address] Jul, Depressive disorder, not elsewhere classified F32.9 [facility] [address] [address] Jun, Bug bites, initial encounter W57.XXXA [place] [address] [address] Jun, Dental examination Z01.20 [place] [id number] [place] [address] [id number] Jun, [facility] [id number] [place] [address] [id number] May, [facility] [address] [place] [address] May, Acute suppurative otitis media of right ear without spontaneous rupture of tympanic membrane, recurrence not specified H66.001 [place] [address] [address] Apr, Encounter for test Z32.00 [facility] [address] [address] Apr, Encounter for immunization Z23 [place] [address] [address] Mar, Acute otitis externa of left ear, unspecified type H60.502 [facility] [address] [address] Sep, Sinusitis J32.9 [facility] [id number] [place] [address] Sep, Ringworm B35.9 [facility] [address] [address] 08 Aug, 2015 Well woman exam Z01.419 ; Encounter for screening for malignant neoplasm of cervix Z12.4 ; Tobacco use Z72.0 ; Family history of diabetes mellitus Z83.3 ; Unprotected sexual intercourse Z72.51 ; Desire for Z31.9 ; Acne, unspecified L70.9 ; Depression, unspecified depression type F32.9 ; Routine screening for STI (sexually transmitted infection) Z11.3 ; Irregular menses N92.6 ; BMI 29.0-29.9,adult Z68.29 ; Teeth missing, unspecified edentulism K08.109 and History of nipple discharge Z87.898 [facility] [address] [address] Aug, Depressive disorder, not elsewhere classified F32.9 [facility] [address] [address]12[address] Mar, [address] [id number] Mar, Bronchitis 490 [facility] [address] [address] Jan, [facility] [id number] [place] [address] [id number] Dec, [facility] [id number] [place] [address] [id number] Dec, [facility] [id number] [place] [address] [id number] November, [facility] [address] [id number] November, [facility] [id number] [place] [address] [id number] November, [facility] [address] [id number] November, [facility] [place] [address] [id number] [place] [phone] November, [facility] [address] [id number] [place] [id number] November, [facility] [address] [id number] [place] [phone] Oct, [facility] [address] [id number], [place] [address] Oct, [facility] [place] [facility] [address] [id number] [place] [address] Oct, [facility] [place] [facility] [address] [facility] [id number] [place] [address] May, [facility] [place] [facility] [address] [facility] [id number] [place] [address] May, [facility] [place] [facility] [address] [id number] [place] [address] May, [facility] [place] [facility] [address] [facility] [id number], [place] [address] May, [facility] [place] [facility] [address] [id number] [place] [address] May, [facility] [place] [facility] [address] [facility] [id number], [place] [address] Apr, [facility] [place] [facility] [address] [facility] [id number], [place] [address] Apr, [facility] [place] [facility] [address] [facility] [id number], [place] [address] Mar, [facility] [place] [facility] [address] [facility] [id number], [place] [address] Mar, [facility] [place] [address] [id number] [place] [id number] Dec, [facility] [place] [facility] [address] [id number], [place] [address] Dec, [facility] [address] [facility] [id number], [place] [address] November, [facility] [address] [id number] [address] November, [facility] [address] [facility] [id number][place] [phone] Sep, [facility] [address] [id number] [address] Sep, [facility] [address] [id number], [place] [address] Aug, [facility] [address]65[address], [place] [address] Aug, [facility] [address] [id number], [place] [address] May, [facility] [address] [id number], [place] [address] May, IMMUNIZATIONS No Known Immunizations SOCIAL HISTORY Never Assessed REASON FOR VISIT PLAN OF CARE VITAL SIGNS MEDICATIONS Unknown Medications RESULTS No Results PROCEDURES No Known procedures INSTRUCTIONS MEDICATIONS ADMINISTERED No Known Medications MEDICAL (GENERAL) HISTORY Type Description Date Medical History hypoglycemia Hospitalization History childbirth x3
--- NOTE | 2017-10-02 16:26 | ED GU-Female ---
General Chief Complaint: -Female Stated Complaint: 8 WKS PG//BLEEDING Nursing Triage Note: Pt reports she is approx 8 weeks and woke up with a bunch of blood today. Pt also reports lower abd cramping. Nursing Sepsis Screen: No Definite Risk Source: patient Exam Limitations: no limitations History of Present Illness Date Seen by Provider: Oct 02, 2017 Time Seen by Provider: 16:26 Initial Comments 27 yo female patient presents to the ED with c/o vaginal bleeding beginning this AM. Initially reported "a bunch of blood." Now states she has had the same pad in all day and only has a few "spots" on the pad. Patient was seen in the emergency department couple of weeks ago for similar symptoms did not follow -up with the PCP. Initially reported pain at the antibiotics that were prescribed for the urinary tract infection. Patient was treated with 1 dose of azithromycin and Rocephin for possible STDs. Patient did test Positive for gonorrhea and chlamydia. Denies knowledge of this. Denies dsch, fever, chills , N/V/D. Timing/Duration: this morning Severity/Quality: cramping Location: suprapubic (cramping) Radiation: none Activities at Onset: none Prior Genitourinary Problems: similar symptoms Sexual [place] History: less than 2 months ago, multiple partners Allergies and Home Medications Allergies Coded Allergies: acetaminophen (Unverified Allergy, Unknown, HIVES, 06/13/16) Home Medications Cephalexin 500 Mg Capsule, 500 MG PO TID Prescribed by: FARHAN STARKS on 10/02/172009 Clindamycin HCl 150 Mg Capsule, 300 MG PO TID Prescribed by: VESTA BISHOP on 09/28/17 1630 Guaifenesin/Codeine Phosphate 120 Ml Liquid, 5 ML PO Q6H PRN for COUGH Prescribed by: JANET LUTZ on 07/04/17 0746 Phenazopyridine HCl 200 Mg Tablet, 1 TAB PO Q8H PRN for pain Prescribed by: FARHAN STARKS on 10/02/172009 Patient Home Medication List Home Medication List Reviewed: Yes Constitutional: No chills, No diaphoresis, No dizziness, No fever, No malaise Respiratory: no symptoms reported Cardiovascular: no symptoms reported Gastrointestinal: abdominal pain (suprapubic abdominal cramping), No constipation, No diarrhea, No loss of appetite, No nausea, No vomiting Genitourinary: see HPI, denies discharge, denies dysuria, denies frequency, denies flank pain, pain, other (vaginal spotting) : Yes Musculoskeletal: no symptoms reported Skin: no symptoms reported Psychiatric/Neurological: No Symptoms Reported All Other Systemes Reviewed Negative Unless Noted: Yes (Negative excepted noted.) Past Lrxbtjx-Jqjcww-[place]bon Hx Patient Social History Type Used: Cigarettes Recent Foreign Travel: No Contact w/Someone Who Travel: No Recent Infectious Disease Expo: No Recent Hopitalizations: No Immunizations Up To Date Tetanus Booster (TDap): Less than 5yrs PED Vaccines UTD: Yes Date of Pneumonia Vaccine: Apr 12, 2013 Date of Influenza Vaccine: Apr 12, 2016 Seasonal Allergies Seasonal Allergies: No Surgeries History of Surgeries: Yes (TEETH REMOVED) Respiratory History of Respiratory Disorde: No Cardiovascular History of Cardiac Disorders: No Neurological History of Neurological Disord: Yes (SEIZURES PER PT--NO PHYSICAN DOCUMENTED SEIZURES) Neurological Disorders: Seizure Disorder Reproductive System : Yes Hx Reproductive Disorders: Yes (CHRONIC PELVIC PAIN ) Sexually Transmitted Disease: Yes (gonorrhea and Chlamydia) HIV/AIDS: No Female Reproductive Disorders: Menstrual Problems, Pelvic Inflammatory Dis, Endometriosis Genitourinary History of Genitourinary Disor: Yes Genitourinary Disorders: Bladder Infection Gastrointestinal History of Gastrointestinal Di: No Musculoskeletal History of Musculoskeletal Dis: No Endocrine History of Endocrine Disorders: Yes ("HYPOGLYCEMIC" PER PT) HEENT History of HEENT Disorders: No Cancer History of Cancer: No Psychosocial History of Psychiatric Problem: No Integumentary History of Skin or Integumenta: No Blood Transfusions History of Blood Disorders: No Adverse Reaction to a Blood Tr: No Reviewed Nursing Assessment Reviewed/Agree w Nursing PMH: Yes Family Medical History Significant Family History: No Pertinent Family Hx Physical Exam Vital Signs Vital Signs - First Documented 10/02/17 14:58 Temp 98.2 Pulse 102 Resp 18 B/P (MAP) 126/62 (83) Pulse Ox 100 O2 Delivery Room Air Capillary Refill : Less Than 3 Seconds General Appearance: WD/WN, no apparent distress HEENT: PERRL/EOMI, pharynx normal Neck: supple, normal inspection Cardiovascular: normal peripheral pulses, regular rate, rhythm, no edema, no murmur Respiratory: lungs clear, normal breath sounds, no respiratory distress, no accessory muscle use Gastrointestinal: normal bowel sounds, non tender, soft, no organomegaly, No distended Back: normal inspection, no CVA tenderness Extremities: no pedal edema, no calf tenderness, normal capillary refill Neurologic/Psychiatric: alert, normal mood/affect, oriented x 3 Skin: normal color, warm/dry Progress/Results/Core Measures Suspected Sepsis Recent Fever Within 48 Hours: No Infection Criteria Present: None New/Unexplained Altered Menta: No Sepsis Screen: No Definite Risk Sepsis Diagnosis: SIRS Temperature:98.2 Pulse: 102 Respiratory Rate: 18 Blood Pressure 126 /62 Mean: 83 Results/Orders Lab Results Laboratory Tests Test 10/02/17 15:34 Range/Units Urine Color YELLOW Urine Clarity CLEAR Urine pH 7 5-9 Urine Specific [place] 1.010 L 1.016-1.022 Urine Protein NEGATIVE NEGATIVE Urine Glucose (UA) NEGATIVE NEGATIVE Urine Ketones NEGATIVE NEGATIVE Urine Nitrite NEGATIVE NEGATIVE Urine Bilirubin NEGATIVE NEGATIVE Urine Urobilinogen NORMAL NORMAL MG/DL Urine Leukocyte Esterase 2+ H NEGATIVE Urine RBC (Auto) 4+ H NEGATIVE Urine RBC 5-10 H /HPF Urine WBC 5-10 H /HPF Urine Squamous Epithelial Cells 25-50 H /HPF Urine Renal Epithelial Cells 0-2 /HPF Urine Crystals NONE /LPF Urine Bacteria FEW H /HPF Urine Casts NONE /LPF Urine Mucus NEGATIVE /LPF Urine Culture Indicated YES Human Chorionic Gonadotropin, Quant 84299 H <5 MIU/ML Micro Results Microbiology 10/02/17 Urine Culture - Preliminary, Resulted My Orders Orders - FARHAN STARKS Hcg,Quantitative (10/02/17 15:22) Heart Tones (10/02/17 15:22) Ua Culture If Indicated (10/02/17 17:32) Urine Culture (10/02/17 15:34) Us Ob Single Fetus<14 [id number] (10/02/17 17:28) Ceftriaxone Injection (Rocephin Injectio (10/02/17 20:00) Lidocaine 1% Injection (Xylocaine 1% Inj (10/02/17 20:00) Azithromycin Tablet (Zithromax Tablet) (10/02/17 20:00) Fentanyl Injection (Sublimaze Injection (10/02/17 19:49) Lidocaine 1% (Xylocaine 1%) (10/02/17 19:55) Vital Signs/I&O Capillary Refill : Less Than 3 Seconds Blood Pressure Mean: 83 Diagnostic Imaging Diagonstic Imaging: Ultrasound Plain Films/CT/US/NM/MRI: pelvis Comments FINDINGS: There is a single living intrauterine . Heart rate is 149 beats per minute. Biometry correlates with a gestational age of 8 weeks 0 days. Neither ovary was visualized. There are no adnexal masses. There is no free pelvic fluid. IMPRESSION: Single living intrauterine with a sonographically estimated gestational age of 8 weeks 0 days and estimated date of confinement of 05/14/2018. Dictated by: Dictated on workstation # [id number] Reviewed: Reviewed by Me (radiology report reviewed by me) Departure Communication (Admissions) Progress Notes Laboratory and diagnostic findings discussed with the patient. I have stressed the importance of having her partner tested for STD's, following up with her OB for retesting, and taking the medications as prescribed. patient verbalizes understanding and agrees with the treatment plan. Impression Impression: Primary Impression: Threatened miscarriage in early Additional Impressions: Urinary tract infection Qualified Codes: N30.01 - Acute cystitis with hematuria Chlamydia infection affecting in first trimester Gonorrhea complicating in first trimester Medical non-compliance Qualified Codes: Z3A.08 - 8 weeks gestation of Disposition: HOME, SELF-CARE Condition: Improved Departure-Patient Inst. Decision time for Depature: 20:08 Referrals: TORI GRAY MD (PCP/Family) Primary Care Physician Patient Instructions: Sexually-Transmitted Diseases (DC), Threatened Miscarriage (DC), Urinary Tract Infection, Adult (DC) Add. Discharge Instructions: All discharge instructions reviewed with patient and/or family. Voiced understanding. Medications as instructed. Take medications as prescribed until completed. Drink plenty of fluids. Have all sexual partners tested for sexually transmitted diseases. Follow-up with Dr. Gray Thursday or Thursday for recheck and to schedule an outpatient repeat ultrasound/STD testing/repeat labs. Call first thing Thursday morning for appointment time. Return to the emergency department for worsened symptoms, fever, vaginal bleeding with greater than 2 pads per hour for greater than 2 hours, vaginal discharge, or any other concerns. Scripts Phenazopyridine HCl (Pyridium) 200 Mg Tablet 1 TAB PO Q8H Y for pain, #14 TAB 0 Refills Prov: FARHAN STARKS 10/02/17 Cephalexin (Cephalexin) 500 Mg Capsule 500 MG PO TID, #30 CAP 0 Refills Prov: FARHAN STARKS 10/02/17 FARHAN STARKS Oct 02, 2017 16:26
[2017-10-02 17:42] LABS: BILIRUBIN,URINE NEGATIVE (NEGATIVE); CLARITY,URINE CLEAR; COLOR,URINE YELLOW; GLUCOSE, URINE (UA) NEGATIVE (NEGATIVE); KETONES,URINE NEGATIVE (NEGATIVE); LEUKOCYTE ESTERASE ,URINE 2+ (NEGATIVE); NITRITE,URINE NEGATIVE (NEGATIVE); PH,URINE 7 (5-9); PROTEIN,URINE NEGATIVE (NEGATIVE); UROBILINOGEN,URINE NORMAL (NORMAL)
[2017-10-02 17:58] LABS: BACTERIA,URINE FEW /HPF; RENAL EPITHELIAL CELLS,URINE 0-2 /HPF; SQUAMOUS EPITHELIAL CELL,UR 25-50 /HPF
--- NOTE | 2017-10-02 19:20 | Diagnostic Imaging Report ---
PROCEDURE: US OB SINGLE FETUS <14 WKS. TECHNIQUE: Multiple real-time grayscale images were obtained over the gravid uterus in various projections. INDICATION: Cramping and spotting. Comparison is made with prior examination from 09/23/2017. FINDINGS: There is a single living intrauterine . Heart rate is 149 beats per minute. Biometry correlates with a gestational age of 8 weeks 0 days. Neither ovary was visualized. There are no adnexal masses. There is no free pelvic fluid. IMPRESSION: Single living intrauterine with a sonographically estimated gestational age of 8 weeks 0 days and estimated date of confinement of 05/14/2018. Dictated by: Dictated on workstation # [id number]
[2017-10-02] MEDS ORDERED: fentaNYL INJECTION 100 MCG/2 ML AMP IM STA (19:49)
[2017-10-02] MEDS ORDERED: LIDOCAINE 1% INJ 50 ML (XYLOCAINE) VIAL ONE (19:55)
[2017-10-02] MEDS ORDERED: cefTRIAXone 1 GM (ROCEPHIN) VIAL IM ONE (20:00)
[2017-10-02] MEDS ORDERED: LIDOCAINE 1% INJ 20 ML (XYLOCAINE) VIAL INJ ONE (20:00)
[2017-10-02] MEDS ORDERED: AZITHROMYCIN 250 MG TAB (ZITHROMAX) PO ONE (20:00)
[2017-10-02] MEDS ORDERED: PHEN-640 PO (20:10)
[2017-10-02] MEDS ORDERED: CEPH500C PO (20:10)
[2017-10-02 20:16] VITALS: BP 126/62
== END 2017-10-02 20:16 | disposition home or self-care (01) ==
LOC: EDUNIT# 13:38 → ER 13:40
DX: O20.0 Threatened abortion (principal); O23.41 Unspecified infection of urinary tract in pregnancy, first trimester; O98.311 Other infections with a predominantly sexual mode of transmission complicating pregnancy, first trimester; A74.9 Chlamydial infection, unspecified; O98.211 Gonorrhea complicating pregnancy, first trimester; A54.9 Gonococcal infection, unspecified; O99.351 Diseases of the nervous system complicating pregnancy, first trimester; G40.909 Epilepsy, unspecified, not intractable, without status epilepticus; Z88.6 Allergy status to analgesic agent; Z3A.08 8 weeks gestation of pregnancy
CPT/HCPCS: 36415; 76801; 81000; 84702; 87088; 96372

== ENCOUNTER → 2018-01-11 | Outpatient (CLI) | payer MEDICAID ==
[~2018-01-11] MED LIST changes: +PHEN-640 PO
--- NOTE | 2018-01-11 16:49 | Diagnostic Imaging Report ---
INDICATION: Size and dates. TECHNIQUE: Multiple real-time grayscale images were obtained over the gravid uterus. COMPARISON: 10/02/2017 FINDINGS: A single live intrauterine fetus is seen measuring at 22 weeks 5 days by composite measurements with sonographic EDC of 05/12/2018. This demonstrates normal interval growth compared to the prior study. The fetus is in cephalic presentation. Amniotic fluid is qualitatively normal. Placenta is grade 2 and posterior with no evidence of previa. heart rate was 143 beats per minute. survey shows normal-appearing kidneys, bladder, stomach, and four-chamber heart view. There is a normal-appearing three-vessel cord and normal images of the cord insertion and spine. intracranial anatomy was not well seen due to position. Biometrical measurements are as follows: Biparietal 5.49 cm, age 22 weeks 6 days. Head circumference 20.80 cm, age 23 weeks 0 days. Abdominal circumference 17.55 cm, age 22 weeks 4 days. Femur length 3.77 cm, age 22 weeks 1 days. Sonographic estimate age: 22 weeks 5 days. Sonographic estimated date of delivery: 05/12/18. Estimated Weight: 497 gm (+/- 73 gm). LMP percentile: 39%. heart rate: 143 beats per minute. number: 1 of 1. IMPRESSION: Single live intrauterine fetus measuring 22 weeks 5 days in size with normal interval growth compared to the prior study. survey showed no detectable abnormality although intracranial structures are not well seen due to position. Consider limited followup study as clinically warranted. Dictated by: Dictated on workstation # [id number]
== END ==
LOC: RAD 13:30
PROVIDERS: ATTEND Family Medicine
DX: Z34.92 Encounter for supervision of normal pregnancy, unspecified, second trimester (principal); Z3A.22 22 weeks gestation of pregnancy
CPT/HCPCS: 76805

== ENCOUNTER → 2018-02-12 | Outpatient (CLI) | payer MEDICAID ==
[2018-02-12 13:35] LABS: BASOPHILS % (AUTO) 0 % (0-10); EOSINOPHILS # (AUTO) 0.3 10^3/uL (0.0-0.3); EOSINOPHILS % (AUTO) 2 % (0-10); HEMATOCRIT 34 % (35-52); LYMPHOCYTES # (AUTO) 2.8 X 10^3 (1.0-4.0); LYMPHOCYTES % (AUTO) 17 % (12-44); MEAN CORPUSCULAR HEMOGLOBIN 32 PG (25-34); MEAN CORPUSCULAR HGB CONC 35 G/DL (32-36); MEAN CORPUSCULAR VOLUME 91 FL (80-99); MEAN PLATELET VOLUME 10.8 FL (7.4-10.4); MONOCYTES # (AUTO) 0.5 X 10^3 (0.0-1.0); MONOCYTES % (AUTO) 3 % (0-12); NEUTROPHILS # (AUTO) 12.7 X 10^3 (1.8-7.8); NEUTROPHILS % (AUTO) 78 % (42-75); PLATELET COUNT 347 10^3/uL (130-400); RED BLOOD COUNT 3.79 10^6/uL (4.35-5.85); RED CELL DISTRIBUTION WIDTH 13.3 % (10.0-14.5); WHITE BLOOD COUNT 16.3 10^3/uL (4.3-11.0)
[2018-02-12 14:01] LABS: BAND NEUTROPHILS 0 %; BASOPHILS % (MANUAL) 0 %; EOSINOPHILS % (MANUAL) 3 %; LYMPHOCYTES % (MANUAL) 18 %; MONOCYTES % (MANUAL) 1 %; NEUTROPHILS % (MANUAL) 78 %; RBC MORPH NORMAL
== END ==
LOC: LAB 11:59
PROVIDERS: ATTEND Family Medicine
DX: Z33.1 Pregnant state, incidental (principal)
CPT/HCPCS: 36415; 82951; 82962; 85007; 85027

== ENCOUNTER 2018-04-20 08:11 | Inpatient (IN) | payer MEDICAID ==
[2018-04-20] VITALS (15 sets, daily range): BP systolic 107–137; BP diastolic 64–85
[~2018-04-20] VITALS: Ht 167.6 cm; Wt 76.2 kg
[2018-04-20] MEDS ORDERED: PREN-37 PO (08:45)
[2018-04-20 08:56] LABS: BILIRUBIN,URINE NEGATIVE (NEGATIVE); CLARITY,URINE CLEAR; COLOR,URINE YELLOW; GLUCOSE, URINE (UA) NEGATIVE (NEGATIVE); KETONES,URINE NEGATIVE (NEGATIVE); LEUKOCYTE ESTERASE ,URINE 3+ (NEGATIVE); NITRITE,URINE NEGATIVE (NEGATIVE); PH,URINE 7 (5-9); PROTEIN,URINE NEGATIVE (NEGATIVE); UROBILINOGEN,URINE NORMAL (NORMAL)
[2018-04-20] MEDS ORDERED: D5 LR IV SOLUTION 1,000 ML IV SCH (08:59)
[2018-04-20] MEDS ORDERED: MEPIVACAINE (CARBOCAINE) 2% 50 ML VIAL INJ PRN (09:00)
[2018-04-20 09:05] LABS: BACTERIA,URINE NEGATIVE /HPF
[2018-04-20] MEDS ORDERED: FLU QUADRIvalent (5+ YOA) 2018-2019 (AFLURIA) 0.5 ML IM ONE (09:15)
[2018-04-20 09:35] LABS: BASOPHILS # (AUTO) 0.1 10^3/uL (0.0-0.1); BASOPHILS % (AUTO) 0 % (0-10); EOSINOPHILS # (AUTO) 0.3 10^3/uL (0.0-0.3); EOSINOPHILS % (AUTO) 2 % (0-10); HEMATOCRIT 34 % (35-52); HEMOGLOBIN 11.7 G/DL (11.5-16.0); LYMPHOCYTES # (AUTO) 3.2 X 10^3 (1.0-4.0); LYMPHOCYTES % (AUTO) 16 % (12-44); MEAN CORPUSCULAR HEMOGLOBIN 30 PG (25-34); MEAN CORPUSCULAR HGB CONC 34 G/DL (32-36); MEAN CORPUSCULAR VOLUME 89 FL (80-99); MEAN PLATELET VOLUME 11.5 FL (7.4-10.4); MONOCYTES # (AUTO) 0.9 X 10^3 (0.0-1.0); MONOCYTES % (AUTO) 4 % (0-12); NEUTROPHILS # (AUTO) 15.6 X 10^3 (1.8-7.8); NEUTROPHILS % (AUTO) 78 % (42-75); PLATELET COUNT 325 10^3/uL (130-400); RED BLOOD COUNT 3.86 10^6/uL (4.35-5.85); RED CELL DISTRIBUTION WIDTH 13.3 % (10.0-14.5)
[2018-04-20 09:56] LABS: BAND NEUTROPHILS 0 %; BASOPHILS % (MANUAL) 0 %; EOSINOPHILS % (MANUAL) 2 %; LYMPHOCYTES % (MANUAL) 17 %; MONOCYTES % (MANUAL) 4 %; NEUTROPHILS % (MANUAL) 77 %; RBC MORPH NORMAL
[2018-04-20] MEDS ORDERED: OXYTOCIN/NORMAL SALINE 500 ML IV SCH ×2 (11:28→13:24)
--- NOTE | 2018-04-20 11:33 | History & Physical-OB ---
OB - Chief Complaint & HPI Date/Time Date of Admission: Date of Admission: Apr 20, 2018 at 08:59 Date seen by a Provider: Apr 20, 2018 Time Seen by a Provider: 11:20 Chief Complaint/History OB-Reason for Admission/Chief: Onset of Labor Hx : 4 Hx Para: 3 Expected Date of Delivery: May 12, 2018 Gestational Age in Weeks: 36 Gestational Age in Days: 6 Admission Nurse Assessment Rev: Yes History of Labs GBS negative Allergies and Home Medications Allergies Coded Allergies: acetaminophen (Unverified Allergy, Unknown, HIVES, 06/13/16) Home Medications Vit/Iron Fumarate/FA 1 Each Tablet, 1 EACH PO DAILY, (Reported) Patient Home Medication List Home Medication List Reviewed: Yes OB - History Hx of Present Care: Yes Ultrasounds: Normal mid trimester US Obstetrical Complications: None Medical Complications: None Obstetrical History Hx : 4 Hx Para: 3 Hx Termination: No Hx Complication: No Delivery History Hx Blood Disorders: No Adverse Rxn to Tranfusion: No Patient Past Medical History no chronic medical problems Social History/Family History HIV/AIDS: No Recent Infectious Disease Expo: No Sexually Transmitted Disease: Yes (gonorrhea and Chlamydia) Alcohol Use: Denies Use Recreational Drug Use: No Immunizations Hepatitis A: No Hepatitis B: No Tetanus Booster (TDap): Less than 5yrs Date of Pneumonia Vaccine: Apr 12, 2013 Date of Influenza Vaccine: Apr 12, 2016 OB - Admission Exam Physical Exam Vitals: Vital Signs 04/20/18 08:39 Temp 98.0 Pulse 93 Resp 18 B/P (MAP) 119/76 (90) O2 Delivery Room Air HEENT: Moist Membranes Heart: Rhythm Normal Lungs: Clear Abdomen: Gravid Cervical Dilatation: 4cm Effacement: 75% Station: -2 Membranes: Intact Accelerations: Accelerations Present [facility]cf Variability: Average (6-25) Contractions on Admission: < 5 Minutes Apart Intensity: Moderate Labs Laboratory Tests Test 04/20/18 08:46 04/20/18 09:20 Range/Units Urine Color YELLOW Urine Clarity CLEAR Urine pH 7 5-9 Urine Specific [place] 1.005 L 1.016-1.022 Urine Protein NEGATIVE NEGATIVE Urine Glucose (UA) NEGATIVE NEGATIVE Urine Ketones NEGATIVE NEGATIVE Urine Nitrite NEGATIVE NEGATIVE Urine Bilirubin NEGATIVE NEGATIVE Urine Urobilinogen NORMAL NORMAL MG/DL Urine Leukocyte Esterase 3+ H NEGATIVE Urine RBC (Auto) NEGATIVE NEGATIVE Urine RBC NONE /HPF Urine WBC 2-5 /HPF Urine Squamous Epithelial Cells 5-10 /HPF Urine Crystals NONE /LPF Urine Bacteria NEGATIVE /HPF Urine Casts NONE /LPF Urine Mucus NEGATIVE /LPF Urine Culture Indicated NO White Blood Count 20.0 H 4.3-11.0 10^3/uL Red Blood Count 3.86 L 4.35-5.85 10^6/uL Hemoglobin 11.7 11.5-16.0 G/DL Hematocrit 34 L 35-52 % Mean Corpuscular Volume 89 80-99 FL Mean Corpuscular Hemoglobin 30 25-34 PG Mean Corpuscular Hemoglobin Concent 34 32-36 G/DL Red Cell Distribution Width 13.3 10.0-14.5 % Platelet Count 325 130-400 10^3/uL Mean Platelet Volume 11.5 H 7.4-10.4 FL Neutrophils (%) (Auto) 78 H 42-75 % Lymphocytes (%) (Auto) 16 12-44 % Monocytes (%) (Auto) 4 0-12 % Eosinophils (%) (Auto) 2 0-10 % Basophils (%) (Auto) 0 0-10 % Neutrophils # (Auto) 15.6 H 1.8-7.8 X 10^3 Lymphocytes # (Auto) 3.2 1.0-4.0 X 10^3 Monocytes # (Auto) 0.9 0.0-1.0 X 10^3 Eosinophils # (Auto) 0.3 0.0-0.3 10^3/uL Basophils # (Auto) 0.1 0.0-0.1 10^3/uL Neutrophils % (Manual) 77 % Lymphocytes % (Manual) 17 % Monocytes % (Manual) 4 % Eosinophils % (Manual) 2 % Basophils % (Manual) 0 % Band Neutrophils 0 % Blood Morphology Comment NORMAL OB - Assessment/Plan/Diagnosis Assessment Assessment: active labor Admission Dx at 36w6d Admission Status: Inpatient Order (span 2 midnights) Reason for Inpatient Admission: L&D Plan Plan: Expectant Management Other Plan -pitocin as necessary -Stadol prn q2hr prn pain TORI GRAY MD Apr 20, 2018 11:33
[2018-04-20] MEDS ORDERED: BUTORPHANOL INJ 2 MG/ML (STADOL) VIAL IV PRN (11:45)
--- NOTE | 2018-04-20 13:29 | OB Labor & Delivery Record ---
L&D History Date of Service Date of Service: Apr 20, 2018 History Expected Date of Delivery: May 12, 2018 Gestational Age in Weeks: 36 Hx : 4 Hx Para: 3 Complications Events: Routine care Operative Indications (Cesarea: N/A-Vaginal Delivery Intrapartal Events: None L&D Stage1 Stage One Onset of Labor - Date: Apr 20, 2018 Onset of Labor - Time: 01:00 Monitors and Tracing Monitor Mode: Internal Heart Rate: 135 Monitor Accelerations: Uniform Monitor Decelerations: None Station: -1 Nursing Home Variability: Average (6-10) Short Term Variability: Present Presentation: Vertex Vital Signs VS - Last 72 Hours, by Label 04/20/18 04/20/18 08:39 10:40 Temp 98.0 97.9 Pulse 93 93 Resp 18 18 B/P (MAP) 119/76 (90) 119/73 (88) O2 Delivery Room Air Room Air Signs of Distress by FHT Signs of Distress no Rupture of Membranes Spontaneous Ruture of Membrane: No Amniotic Membrane Rupture Time: 11:20 Amniotic Membrane Fluid Desc.: Clear Vaginal Bleeding Description: None L&D Stage2 Stage Two Stage II Date: Apr 20, 2018 Stage II Time: 12:51 Monitors and Tracing Monitor Mode: Internal Heart Rate: 135 Monitor Accelerations: Uniform Monitor Decelerations: None Nursing Home Variability: Average (6-10) Short Term Variability: Present Position: Left Occiput Anterior Presentation: Vertex Signs of Distress by FHT Signs of Distress no Cord Descript/Complications Cord Vessel Description: 3 Vessels Delivery Type Infant Delivery Method: Spontaneous Vaginal Anterior Shoulder: Left Episiotomy/Perineal Laceration Laceraction(s)/Extensions: No Condition of Infant Delivery 1 minute Comment: 8 5 minute Comment: 9 Condition of Infant Condition of Infant: Living Exam: No Observed Abnormalities Resuscitation Resuscitation: N/A - Spontaneous Resp L&D Stage3 Stage Three Stage III Date: Apr 20, 2018 Stage III Time: 15:55 Pictocin Pitocin ml/hr: 125 Placenta Delivery Placenta Delivery: Spontaneous Delivery Summary Summary Estimated blood loss (mL): 125 Condition of Delivery Examined: Cervix Examined Post Hemorrhage: No Intervention Required none TORI GRAY MD Apr 20, 2018 13:29
[2018-04-20] MEDS ORDERED: TETANUS,DIPTH,PERTUSS P/F (BOOSTRIX) 0.5 ML VIAL IM ONE (13:30)
[2018-04-20] MEDS ORDERED: MEASLES,MUMPS,RUBELLA 1 EA INJ SQ ONE (13:30)
[2018-04-20] MEDS ORDERED: WITCH HAZEL(TUCKS) 40 EA JAR TOP PRN (13:30)
[2018-04-20] MEDS ORDERED: BENZOCAINE/MENTHOL (DERMOPLAST) 56 ML CAN TP PRN (13:30)
[2018-04-20] MEDS ORDERED: CATHETER FLUSH 10 ML SYR IV SCH ×2 (14:00)
[2018-04-20] MEDS: IBUPROFEN 600 MG (MOTRIN) TAB PO SCH (14:55)
[2018-04-21 00:33] VITALS: BP 97/55
[2018-04-21 04:28] VITALS: BP 100/58
[2018-04-21] MEDS: IBUPROFEN 600 MG (MOTRIN) TAB PO SCH ×3 (04:28→11:00)
[2018-04-21 05:18] LABS: BASOPHILS # (AUTO) 0.1 10^3/uL (0.0-0.1); BASOPHILS % (AUTO) 0 % (0-10); EOSINOPHILS # (AUTO) 0.4 10^3/uL (0.0-0.3); EOSINOPHILS % (AUTO) 2 % (0-10); HEMATOCRIT 32 % (35-52); HEMOGLOBIN 11.1 G/DL (11.5-16.0); LYMPHOCYTES # (AUTO) 4.9 X 10^3 (1.0-4.0); LYMPHOCYTES % (AUTO) 22 % (12-44); MEAN CORPUSCULAR HEMOGLOBIN 31 PG (25-34); MEAN CORPUSCULAR HGB CONC 35 G/DL (32-36); MEAN CORPUSCULAR VOLUME 89 FL (80-99); MEAN PLATELET VOLUME 11.6 FL (7.4-10.4); MONOCYTES # (AUTO) 1.1 X 10^3 (0.0-1.0); MONOCYTES % (AUTO) 5 % (0-12); NEUTROPHILS # (AUTO) 16.2 X 10^3 (1.8-7.8); NEUTROPHILS % (AUTO) 71 % (42-75); PLATELET COUNT 256 10^3/uL (130-400); RED BLOOD COUNT 3.59 10^6/uL (4.35-5.85); RED CELL DISTRIBUTION WIDTH 13.1 % (10.0-14.5); WHITE BLOOD COUNT 22.7 10^3/uL (4.3-11.0)
[2018-04-21 08:20] VITALS: BP 99/63
--- NOTE | 2018-04-21 13:14 | Discharge Summary ---
Diagnosis/Chief Complaint Date of Admission Apr 20, 2018 at 08:59 Date of Discharge April 21, 2018 Discharge Date: Apr 21, 2018 Discharge Time: 14:00 Admission Diagnosis Admission Diagnosis 1. Intrauterine 36 wks and 6 days gestation Discharge Diagnosis 1. Intrauterine 36 wks and 6 days gestation Reason Hospital Visit 8-year-old 4 now term 4 who initially presents to women's services with uterine contraction an cervical change to 4 cm dilated. Patient's EDC is May 12, 2018. Her care was essentially unremarkab Discharge Summary-OBS Procedures 1. Spontaneous vaginal delivery Discharge Physical Examination Allergies: Coded Allergies: acetaminophen (Unverified Allergy, Unknown, HIVES, 06/13/16) Vitals & I&Os Vital Signs Date Time Temp Pulse Resp B/P (MAP) Pulse Ox O2 Delivery O2 Flow Rate FiO2 04/21/18 08:20 97.8 79 18 99/63 (75) Room Air 04/21/18 04:28 96 General Appearance: No Acute Distress Respiratory: Clear to Auscultation Cardiovascular: Regular Rate Abdominal: Soft (with uterus firm) Hospital Course upon presentation to womens services in the morning of April 20, 2018 she was felt to be in labor with membranes bulging. She underwent amniotomy with placement of scalp electrode. Patient rapidly progressed to completion and delivered a term viable male with Apgars of 9 at 1 minute and 9 at 5 minutes. Following delivery patient underwent routine care orders. Her hemoglobin in the morning of April 21 was noted to be 11.1 as compared to 11.7 on admission. She was noted to be ambulatory and without any leg pain or shortness of breath. Patient was felt ready for dismissal during the afternoon of April 21, 2018 All questions answered Discharge Instructions to patient/family Please see electronic discharge instructions given to patient. Discharge Medications Reviewed and agree with Discharge Medication list on patient's Discharge Instruction sheet Clinical Quality Measures DVT/VTE Risk/Contraindication: Risk Factor Score Per Nursin RFS Level Per Nursing on Admit: 2=Moderate TORI GRAY MD Apr 21, 2018 13:14
[2018-04-21] MEDS ORDERED: FLU QUADRIvalent (5+ YOA) 2018-2019 (AFLURIA) 0.5 ML IM ONE (13:32)
[2018-04-21] MEDS ORDERED: TETANUS,DIPTH,PERTUSS P/F (BOOSTRIX) 0.5 ML VIAL IM ONE (13:33)
== END 2018-04-21 14:55 | disposition home or self-care (01) | DRG 807 ==
LOC: WSo 08:11 → LDRP 08:12 → WSo 08:59 → LDRP 08:59
PROVIDERS: ADMIT Family Medicine; ATTEND Family Medicine
PROC: 10E0XZZ Delivery of Products of Conception, External Approach (ICD-10-PCS; principal; 2018-04-20)
DX: O80 Encounter for full-term uncomplicated delivery (principal); Z37.0 Single live birth; Z3A.36 36 weeks gestation of pregnancy; Z23 Encounter for immunization
CPT/HCPCS: 36415; 81000; 85007; 85025; 85027; 86850; 86900; 86901; 90686; 90715; 99212

== ENCOUNTER 2018-07-14 12:17 | Emergency (ER) | payer MEDICAID ==
[~2018-07-14] VITALS: Ht 167.6 cm; Wt 65.8 kg
[~2018-07-14 12:17] MED LIST changes: +PREN-37 PO
[2018-07-14] MEDS ORDERED: CITA20TA12 PO (13:11)
--- NOTE | 2018-07-14 13:32 | ED Lower Extremity ---
General Chief Complaint: Lower Extremity Stated Complaint: FOOT INJ Nursing Triage Note: pt presents to ed with complaints of l foot pain after stepping on a nail last night. Nursing Sepsis Screen: No Definite Risk Source: patient Exam Limitations: no limitations History of Present Illness Date Seen by Provider: Jul 14, 2018 Time Seen by Provider: 13:29 Initial Comments Patient stepped on a nail last night. Now has pain to the left foot were punctured the plantar surface. Onset: yesterday Severity: moderate Pain/Injury Location: left foot Modifying Factors: Worse With Movement Allergies and Home Medications Allergies Coded Allergies: acetaminophen (Unverified Allergy, Unknown, HIVES, 06/13/16) Patient Home Medication List Home Medication List Reviewed: Yes Review of Systems Constitutional: see HPI EENTM: see HPI Respiratory: no symptoms reported Cardiovascular: no symptoms reported Genitourinary: no symptoms reported Musculoskeletal: see HPI Skin: no symptoms reported Psychiatric/Neurological: No Symptoms Reported Past Kxacbiy-Falxqa-Sshthw Hx Patient Social History Alcohol Use: Occasionally Uses Recreational Drug Use: Yes Drug of Choice: marijuana Smoking Status: Current Everyday Smoker Type Used: Cigarettes Recent Foreign Travel: No Contact w/Someone Who Travel: No Recent Infectious Disease Expo: No Recent Hopitalizations: No Physical Abuse: No Sexual Abuse: No Mistreated: No Fear: No Immunizations Up To Date Tetanus Booster (TDap): Less than 5yrs PED Vaccines UTD: Yes Date of Pneumonia Vaccine: Apr 12, 2013 Date of Influenza Vaccine: Apr 12, 2016 Seasonal Allergies Seasonal Allergies: No Past Medical History Surgeries: Yes (TEETH REMOVED) Respiratory: No Cardiac: No Neurological: Yes (SEIZURES PER PT--NO PHYSICAN DOCUMENTED SEIZURES) Seizure Disorder Reproductive Disorders: Yes (CHRONIC PELVIC PAIN ) Female Reproductive Disorders: Menstrual Problems, Pelvic Inflammatory Dis, Endometriosis Sexually Transmitted Disease: Yes (gonorrhea and Chlamydia) HIV/AIDS: No Genitourinary: Yes Bladder Infection Gastrointestinal: No Musculoskeletal: No Endocrine: Yes ("HYPOGLYCEMIC" PER PT) HEENT: No Cancer: No Psychosocial: Yes Depression Integumentary: No Blood Disorders: No Adverse Reaction/Blood Tranf: No Family Medical History No Pertinent Family Hx Physical Exam Vital Signs Vital Signs - First Documented 07/14/18 13:04 Temp 98.0 Pulse 86 Resp 20 B/P (MAP) 104/74 (84) Pulse Ox 98 Capillary Refill : Less Than 3 Seconds Height, Weight, BMI Height: 5'6.00" Weight: 145lbs. 0.0oz. [id number]; 27.1 BMI Method:Stated General Appearance: WD/WN, no apparent distress HEENT: PERRL/EOMI, normal ENT inspection Neck: non-tender, full range of motion Respiratory: no respiratory distress, no accessory muscle use Hips: bilateral hip non-tender, bilateral hip normal inspection, bilateral hip normal range of motion Legs: bilateral leg non-tender, bilateral leg normal inspection, bilateral leg normal range of motion Knees: bilateral knee non-tender, bilateral knee normal inspection, bilateral knee normal range of motion Ankles: bilateral ankle non-tender, bilateral ankle normal inspection, bilateral ankle normal range of motion Feet: left foot pain, left foot soft tissue tenderness, left foot other (there is a puncture wound to the plantar surface of the foot on the left near the distal third metatarsal without drainage or erythema. No foreign body seen on x- ray. No bony injury. There is no erythema or swelling of the foot but tender to palpation.) Neurologic/Psychiatric: alert, normal mood/affect, oriented x 3 Skin: normal color, warm/dry Progress/Results/Core Measures Results/Orders My Orders Orders - VESTA BISHOP APRN Foot, Left, 3 Views (07/14/18 13:12) Vital Signs/I&O 07/14/18 13:04 Temp 98.0 Pulse 86 Resp 20 B/P (MAP) 104/74 (84) Pulse Ox 98 Blood Pressure Mean: 84 Departure Impression Primary Impression: Puncture wound of foot Qualified Codes: S91.332A - Puncture wound without foreign body, left foot, initial encounter Disposition: 01 HOME, SELF-CARE Condition: Stable Departure-Patient Inst. Decision time for Depature: 13:31 Referrals: TORI GRAY MD (PCP/Family) Primary Care Physician Patient Instructions: Wound Care, Wound Infection Add. Discharge Instructions: 1. Return to ER for any redness of the foot, severe swelling or fevers. Elevate the foot as much as possible. You may bear weight on the foot when the pain is tolerable. Use the crutches in the meantime. Pain medication and antibiotics as directed. Antibiotics are most important. All discharge instructions reviewed with patient and/or family. Voiced understanding. Scripts Hydrocodone/Ibuprofen (Hydrocodone-Ibuprofen 5-200 mg) 1 Each Tablet 1 EACH PO Q4H PRN for PAIN-MODERATE MDD 10, #14 TAB Do not fill unless Augmentin is also filled Prov: VESTA BISHOP APRN 07/14/18 Amoxicillin/Potassium Clav (Augmentin 875-125 Tablet) 1 Each Tablet 1 EACH PO BID, #10 TAB Prov: VESTA BISHOP APRN 07/14/18 VESTA BISHOP APRN Jul 14, 2018 13:32
[2018-07-14] MEDS ORDERED: AMOX-358 PO (13:37)
[2018-07-14] MEDS ORDERED: HYDR-3990 PO (13:37)
[2018-07-14 13:44] VITALS: BP 104/74
--- NOTE | 2018-07-14 13:49 | Diagnostic Imaging Report ---
Indication: Injury left foot. AP, oblique, and lateral views of the left foot are obtained. No fracture or acute bony abnormality seen. Joint spaces are unremarkable. Impression: Negative left foot. Dictated by: Dictated on workstation # [id number]
== END 2018-07-14 13:44 | disposition home or self-care (01) ==
LOC: EDUNIT# 12:17 → ER 12:18
DX: S91.332A Puncture wound without foreign body, left foot, initial encounter (principal); G40.909 Epilepsy, unspecified, not intractable, without status epilepticus; F32.9 Major depressive disorder, single episode, unspecified; F12.10 Cannabis abuse, uncomplicated; F17.210 Nicotine dependence, cigarettes, uncomplicated; Z87.448 Personal history of other diseases of urinary system; Z86.19 Personal history of other infectious and parasitic diseases; Z98.890 Other specified postprocedural states; Z88.8 Allergy status to other drugs, medicaments and biological substances; W45.0XXA Nail entering through skin, initial encounter
CPT/HCPCS: 73630

== ENCOUNTER → 2018-09-16 | Outpatient (CLI) | payer MEDICAID ==
[~2018-09-16] MED LIST changes: +AMOX-358 PO; +CITA20TA12 PO; +HYDR-3990 PO
--- NOTE | 2018-09-16 16:47 | Diagnostic Imaging Report ---
INDICATION: Chronic knee pain. COMPARISON: 03/06/2015 FINDINGS: 3 views of the right knee joint demonstrate no acute fracture or dislocation. No focal osseous lesions are seen. No significant joint effusion is seen. The surrounding soft tissue structures are unremarkable. There are no radiopaque foreign bodies. IMPRESSION: 1. No acute fractures or dislocations of the right knee joint. Dictated by: Dictated on workstation # [id number]
== END ==
LOC: RAD 15:09
PROVIDERS: ATTEND Family Medicine
DX: M25.561 Pain in right knee (principal)
CPT/HCPCS: 73562

== ENCOUNTER 2019-01-16 12:20 | Emergency (ER) | payer SELFPAY ==
[~2019-01-16] VITALS: Ht 167.6 cm; Wt 58.1 kg
[2019-01-16 12:50] LABS: BASOPHILS % (AUTO) 0 % (0-10); EOSINOPHILS # (AUTO) 0.1 10^3/uL (0.0-0.3); EOSINOPHILS % (AUTO) 2 % (0-10); HEMATOCRIT 40 % (35-52); HEMOGLOBIN 13.3 G/DL (11.5-16.0); LYMPHOCYTES # (AUTO) 2.6 X 10^3 (1.0-4.0); LYMPHOCYTES % (AUTO) 27 % (12-44); MEAN CORPUSCULAR HEMOGLOBIN 30 PG (25-34); MEAN CORPUSCULAR HGB CONC 34 G/DL (32-36); MEAN CORPUSCULAR VOLUME 90 FL (80-99); MEAN PLATELET VOLUME 11.4 FL (7.4-10.4); MONOCYTES # (AUTO) 0.6 X 10^3 (0.0-1.0); MONOCYTES % (AUTO) 6 % (0-12); NEUTROPHILS # (AUTO) 6.1 X 10^3 (1.8-7.8); NEUTROPHILS % (AUTO) 65 % (42-75); PLATELET COUNT 290 10^3/uL (130-400); RED CELL DISTRIBUTION WIDTH 14.4 % (10.0-14.5); WHITE BLOOD COUNT 9.4 10^3/uL (4.3-11.0)
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
--- NOTE | 2019-01-16 13:04 | NUR ---
report from burt celestin
[2019-01-16 13:06] LABS: ALANINE AMINOTRANSFERASE 193 U/L (0-55); ALKALINE PHOSPHATASE 120 U/L (40-136); BILIRUBIN,TOTAL 0.5 MG/DL (0.1-1.0); BUN/CREATININE RATIO 12; CALCIUM 9.1 MG/DL (8.5-10.1); CARBON DIOXIDE 21 MMOL/L (21-32); CHLORIDE 110 MMOL/L (98-107); CREATININE SERUM 0.81 MG/DL (0.60-1.30); GFR ESTIMATED > 60; GLUCOSE 100 MG/DL (70-105); POTASSIUM 3.8 MMOL/L (3.6-5.0); SODIUM 142 MMOL/L (135-145); TOTAL PROTEIN 6.7 GM/DL (6.4-8.2)
--- NOTE | 2019-01-16 13:16 | NUR ---
PT HERE WITH " [facility]ISTR AND NEPHEW". NEPHEW IS A CHILD. PT ALERT GCS 15. PT FULLY DRESSED. PT RELATES " I KNOW IM ". DOESNT KNOW HOW FAR ALONG SHE IS AND HAS NOT SEEN OB DR YET. PT C/O " SHARP PAIN IN MY STOMACH". ALSO C/O AGINAL D/C STARTED THIS AM. DENIES OTHER VAGINAL C/OS. DENIES UA C/OS. BP MACHINE IS 115/64 AUSC HR 88 REG AUSC RESP 20 NORMAL RECHECK TEMP 98.7 P OX R/A IS 99. PT TO BATHROOM FOR UA.
--- NOTE | 2019-01-16 13:20 | NUR ---
UA TO LAB BY
--- NOTE | 2019-01-16 13:20 | NUR ---
NOT. HCG MAGEN LESS 5. RELATES NO NEED FOR UA HCG AND FHT.
[2019-01-16 13:26] LABS: BILIRUBIN,URINE NEGATIVE (NEGATIVE); CLARITY,URINE CLEAR; COLOR,URINE YELLOW; GLUCOSE, URINE (UA) NEGATIVE (NEGATIVE); KETONES,URINE NEGATIVE (NEGATIVE); LEUKOCYTE ESTERASE ,URINE 1+ (NEGATIVE); NITRITE,URINE NEGATIVE (NEGATIVE); PH,URINE 7 (5-9); PROTEIN,URINE 1+ (NEGATIVE); UROBILINOGEN,URINE 4 MG/DL (NORMAL)
[2019-01-16 13:35] LABS: BACTERIA,URINE TRACE /HPF; URINE OTHER RARE SPERM /HPF; WBC,URINE RARE /HPF
[2019-01-16 13:38] LABS: AMPHETAMINE SCREEN, URINE NEGATIVE (NEGATIVE); BARBITURATE SCREEN URINE NEGATIVE (NEGATIVE); BENZODIAZEPINES SCREEN URINE NEGATIVE (NEGATIVE); CANNABINOID SCREEN, URINE POSITIVE (NEGATIVE); COCAINE SCREEN URINE NEGATIVE (NEGATIVE); METHADONE STAT NEGATIVE (NEGATIVE); METHAMPHETAMINE SCREEN URINE S NEGATIVE (NEGATIVE); OPIATE SCREEN URINE NEGATIVE (NEGATIVE); OXYCODONE STAT NEGATIVE (NEGATIVE); PROPOXYPHENE STAT NEGATIVE (NEGATIVE); TRICYCLIC ANTIDEPRESSANTS SCRE NEGATIVE (NEGATIVE)
[2019-01-16] MEDS ORDERED: METR-145 PO (14:24)
[2019-01-16 14:56] VITALS: BP 115/64
--- NOTE | 2019-01-16 14:56 | NUR ---
d/c instructions to pt. told to read all papers. scripts faxed. pt left ambulatory by self. pt knows f/u. i went over the handtyped by information on the chart. pt had no iv. pt did not pay much attention to d/c instructions but did listen some. pt said " im just going to throw them i dont give a shit".
== END 2019-01-16 14:56 | disposition home or self-care (01) ==
LOC: EDUNIT# 12:20 → ER 12:21
DX: N89.8 Other specified noninflammatory disorders of vagina (principal); F12.10 Cannabis abuse, uncomplicated; F15.10 Other stimulant abuse, uncomplicated; F17.210 Nicotine dependence, cigarettes, uncomplicated; G40.909 Epilepsy, unspecified, not intractable, without status epilepticus; F32.9 Major depressive disorder, single episode, unspecified; Z88.5 Allergy status to narcotic agent; Z87.440 Personal history of urinary (tract) infections; Z32.02 Encounter for pregnancy test, result negative
CPT/HCPCS: 36415; 80053; 80306; 80320; 81000; 84702; 85025; 87491; 87591; 99282

== ENCOUNTER 2019-09-09 13:03 | Emergency (ER) | payer SELFPAY ==
[~2019-09-09] VITALS: Ht 167.7 cm; Wt 68.8 kg
[~2019-09-09 13:03] MED LIST changes: +METR-145 PO
[2019-09-09 13:21] LABS: BILIRUBIN,URINE NEGATIVE (NEGATIVE); CLARITY,URINE CLEAR; COLOR,URINE YELLOW; GLUCOSE, URINE (UA) NEGATIVE (NEGATIVE); KETONES,URINE NEGATIVE (NEGATIVE); LEUKOCYTE ESTERASE ,URINE TRACE (NEGATIVE); NITRITE,URINE NEGATIVE (NEGATIVE); PROTEIN,URINE 1+ (NEGATIVE)
--- NOTE | 2019-09-09 13:24 | ED Back Pain ---
General Chief Complaint: Back Problems Stated Complaint: LOWER BACK PAIN;N/V;FEVER Nursing Triage Note: has L flank pain that radiates around to her LLQ, states she had a temp of 107.2 last night Nursing Sepsis Screen: Possible Sepsis Risk Source of Information: Patient, Family History of Present Illness Date Seen by Provider: Sep 09, 2019 Time Seen by Provider: 13:20 Initial Comments 29-year-old female presents with left-sided flank pain that radiates into her groin. She reports that she's had a fever for several days. That last night she was at a friend's and she was "burning up" when I checked her temperature it was 107.2. Patient did not have any nausea vomiting. She does have some chills. Patient denies any dysuria. She is not having cough, shortness of breath, sore throat or other systemic complaints Allergies and Home Medications Allergies Coded Allergies: No Known Drug Allergies (Unverified , 09/09/19) Home Medications Doxycycline Hyclate 100 Mg Tablet, 100 MG PO BID Prescribed by: DONNIE FERNANDO on 09/09/19 1520 Metronidazole 500 Mg Tablet, 500 MG PO BID Prescribed by: FARHAN STARKS on 01/16/19 1424 Metronidazole 500 Mg Tablet, 500 MG PO BID Prescribed by: DONNIE FERNANDO on 09/09/19 1520 Patient Home Medication List Home Medication List Reviewed: Yes Review of Systems Constitutional: chills, fever Respiratory: No cough, No short of breath Gastrointestinal: LLQ (radiated pain ) Genitourinary: see HPI Musculoskeletal: back pain Past Kyimser-Qmkkuc-Nkpctg Hx Past Med/Social Hx: Reviewed Nursing Past Med/Soc Hx Patient Social History Alcohol Use: Denies Use Recreational Drug Use: No Drug of Choice: marijuana, METH (IV) Smoking Status: Current Everyday Smoker Type Used: Cigarettes 2nd Hand Smoke Exposure: Yes Recent Foreign Travel: No Contact w/Someone Who Travel: No Recent Infectious Disease Expo: No Recent Hopitalizations: No Immunizations Up To Date Tetanus Booster (TDap): Less than 5yrs PED Vaccines UTD: Yes Date of Pneumonia Vaccine: Apr 12, 2013 Date of Influenza Vaccine: Apr 12, 2016 Seasonal Allergies Seasonal Allergies: No Past Medical History Surgeries: Yes (TEETH REMOVED) Respiratory: No Cardiac: No Neurological: Yes (SEIZURES PER PT--NO PHYSICAN DOCUMENTED SEIZURES) Seizure Disorder Last Menstrual Period: Sep 05, 2019 Reproductive Disorders: Yes (CHRONIC PELVIC PAIN ) Female Reproductive Disorders: Menstrual Problems, Pelvic Inflammatory Dis, Endometriosis Sexually Transmitted Disease: Yes (gonorrhea and Chlamydia) HIV/AIDS: No Genitourinary: Yes Bladder Infection Gastrointestinal: No Musculoskeletal: No Endocrine: Yes ("HYPOGLYCEMIC" PER PT) HEENT: No Cancer: No Psychosocial: Yes Depression Integumentary: No Blood Disorders: No Adverse Reaction/Blood Tranf: No Family Medical History No Pertinent Family Hx Physical Exam Vital Signs Vital Signs - First Documented 09/09/19 13:07 Temp 37.9 Pulse 111 Resp 20 B/P (MAP) 114/66 (82) Capillary Refill : Less Than 3 Seconds Height, Weight, BMI Height: 5'6.00" Weight: 128lbs. 0.0oz. 58.460189qa; 24.00 BMI Method:Stated General Appearance: No Apparent Distress, WD/WN Cardiovascular: Regular Rate, Rhythm, No Edema Respiratory: Chest Non Tender, Lungs Clear, Normal Breath Sounds Gastrointestinal: Soft, Tenderness (mild lower abdomen) Back: CVA Tenderness (L) Extremity: Normal Capillary Refill, Normal Inspection, Normal Range of Motion Neurologic/Psychiatric: Alert, Oriented x3 Skin: Normal Color, Warm/Dry Progress/Results/Core Measures Results/Orders Lab Results Laboratory Tests Test 09/09/19 13:14 09/09/19 13:22 Range/Units Urine Color YELLOW Urine Clarity CLEAR Urine pH 6.0 5-9 Urine Specific [place] 1.020 1.016-1.022 Urine Protein 1+ H NEGATIVE Urine Glucose (UA) NEGATIVE NEGATIVE Urine Ketones NEGATIVE NEGATIVE Urine Nitrite NEGATIVE NEGATIVE Urine Bilirubin NEGATIVE NEGATIVE Urine Urobilinogen 1.0 < = 1.0 MG/DL Urine Leukocyte Esterase TRACE H NEGATIVE Urine RBC (Auto) 2+ H NEGATIVE Urine RBC 5-10 H /HPF Urine WBC 10-25 H /HPF Urine Squamous Epithelial Cells >50 H /HPF Urine Crystals NONE /LPF Urine Bacteria FEW H /HPF Urine Casts NONE /LPF Urine Mucus MODERATE H /LPF Urine Trichomonas FEW H /HPF Urine Culture Indicated YES Urine Test NEGATIVE NEGATIVE White Blood Count 18.4 H 4.3-11.0 10^3/uL Red Blood Count 4.38 4.35-5.85 10^6/uL Hemoglobin 13.0 11.5-16.0 G/DL Hematocrit 39 35-52 % Mean Corpuscular Volume 90 80-99 FL Mean Corpuscular Hemoglobin 30 25-34 PG Mean Corpuscular Hemoglobin Concent 33 32-36 G/DL Red Cell Distribution Width 13.8 10.0-14.5 % Platelet Count 272 130-400 10^3/uL Mean Platelet Volume 11.4 H 7.4-10.4 FL Neutrophils (%) (Auto) 82 H 42-75 % Lymphocytes (%) (Auto) 9 L 12-44 % Monocytes (%) (Auto) 9 0-12 % Eosinophils (%) (Auto) 0 0-10 % Basophils (%) (Auto) 0 0-10 % Neutrophils # (Auto) 15.0 H 1.8-7.8 X 10^3 Lymphocytes # (Auto) 1.6 1.0-4.0 X 10^3 Monocytes # (Auto) 1.7 H 0.0-1.0 X 10^3 Eosinophils # (Auto) 0.0 0.0-0.3 10^3/uL Basophils # (Auto) 0.0 0.0-0.1 10^3/uL Neutrophils % (Manual) 88 % Lymphocytes % (Manual) 7 % Monocytes % (Manual) 3 % Eosinophils % (Manual) 0 % Basophils % (Manual) 0 % Band Neutrophils 2 % Blood Morphology Comment NORMAL Sodium Level 136 135-145 MMOL/L Potassium Level 3.4 L 3.6-5.0 MMOL/L Chloride Level 104 98-107 MMOL/L Carbon Dioxide Level 22 21-32 MMOL/L Anion Gap 10 5-14 MMOL/L Blood Urea Nitrogen 6 L 7-18 MG/DL Creatinine 0.98 0.60-1.30 MG/DL Estimat Glomerular Filtration Rate > 60 BUN/Creatinine Ratio 6 Glucose Level 103 70-105 MG/DL Calcium Level 9.2 8.5-10.1 MG/DL Corrected Calcium 9.1 8.5-10.1 MG/DL Total Bilirubin 0.5 0.1-1.0 MG/DL Aspartate Amino Transf (AST/SGOT) 11 5-34 U/L Alanine Aminotransferase (ALT/SGPT) 16 0-55 U/L Alkaline Phosphatase 91 40-136 U/L Total Protein 7.4 6.4-8.2 GM/DL Albumin 4.1 3.2-4.5 GM/DL My Orders Orders - FERNANDOLYNDONDONNIE L DO Cbc With Automated Diff (09/09/19 13:19) Comprehensive Metabolic Panel (09/09/19 13:19) Hcg,Qualitative Urine (09/09/19 13:19) Manual Differential (09/09/19 13:22) Ketorolac Injection (Toradol Injection) (09/09/19 14:06) Ct Abd/Pelvis Wo(Kidney Stone) (09/09/19 14:10) Ceftriaxone For Iv Use (Rocephin For I (09/09/19 14:15) Metronidazole Tablet (Flagyl Tablet) (09/09/19 14:15) Neis Raymond Dna Urine Test (09/09/19 14:14) Chlamydia Trachomatis Urine (09/09/19 14:14) Medications Given in ED Current Medications Medications Dose Ordered Sig/Jaziel Route Start Time Stop Time Status Last Admin Dose Admin Ceftriaxone Sodium 1000 mg/ Sterile Water 10 ml @ 200 mls/hr ONCE ONCE IV 09/09/19 14:15 09/09/19 14:17 DC 09/09/19 14:22 200 MLS/HR Metronidazole 500 mg ONCE ONCE PO 09/09/19 14:15 09/09/19 14:16 DC 09/09/19 14:22 500 MG Vital Signs/I&O 09/09/19 13:07 Temp 37.9 Pulse 111 Resp 20 B/P (MAP) 114/66 (82) Blood Pressure Mean: 82 Progress Progress Note : Time: 15:21 Progress Note Patient with Trichomonas along with a urinary tract infection. Gonorrhea and chlamydia pending. Patient has a negative CT. Patient likely with some pelvic inflammatory disease. I will treat her with doxycycline and Flagyl. She should follow-up with her primary care provider few days for recheck of symptoms that sure that she clears her infection. We will also call in a prescription for Flagyl for her partner. Departure Impression Primary Impression: Urinary tract infection Qualified Codes: N30.01 - Acute cystitis with hematuria Additional Impressions: infection, trichomonal PID (acute pelvic inflammatory disease) Disposition: HOME, SELF-CARE Condition: Stable Departure-Patient Inst. Referrals: NO,LOCAL PHYSICIAN (PCP/Family) Primary Care Physician Patient Instructions: Sexually-Transmitted Diseases, Trichomoniasis, Pelvic Inflammatory Disease (DC), Urinary Tract Infection, Adult (DC) Add. Discharge Instructions: Emergency department focuses on treating and ruling out life-threatening diseases. Whenever possible, a diagnosis is given. However, most patients are gi blanca an impression based on their history, physical exam, and workup during your brief time in the ER. Information about probable diagnosis and other educational material has been provided. Please take the time to read and understand this information. It is very important that you follow up with a physician as discussed during the visit today. Failure to adhere to your follow-up instructions may lead to severe disability, injury, or so please make sure to keep your appointments or obtain one as requested. Please keep in mind the emergency department is not designed to your primary care or "family doctor" and nonurgent issues are best evaluated by an outpatient physician All discharge instructions reviewed with patient and/or family. Voiced understan pranay. Scripts Metronidazole (Flagyl) 500 Mg Tablet 500 MG PO BID for 7 Days, #14 TAB Prov: DONNIE FERNANDO DO 09/09/19 Doxycycline Hyclate (Doxycycline Hyclate) 100 Mg Tablet 100 MG PO BID for 10 Days, #20 TAB 0 Refills Prov: DONNIE FERNANDO DO 09/09/19 DONNIE FERNANDO DO Sep 09, 2019 13:24
[2019-09-09 13:36] LABS: BASOPHILS % (AUTO) 0 % (0-10); EOSINOPHILS % (AUTO) 0 % (0-10); HEMATOCRIT 39 % (35-52); LYMPHOCYTES # (AUTO) 1.6 X 10^3 (1.0-4.0); LYMPHOCYTES % (AUTO) 9 % (12-44); MEAN CORPUSCULAR HEMOGLOBIN 30 PG (25-34); MEAN CORPUSCULAR HGB CONC 33 G/DL (32-36); MEAN CORPUSCULAR VOLUME 90 FL (80-99); MEAN PLATELET VOLUME 11.4 FL (7.4-10.4); MONOCYTES # (AUTO) 1.7 X 10^3 (0.0-1.0); MONOCYTES % (AUTO) 9 % (0-12); NEUTROPHILS % (AUTO) 82 % (42-75); PLATELET COUNT 272 10^3/uL (130-400); RED CELL DISTRIBUTION WIDTH 13.8 % (10.0-14.5); WHITE BLOOD COUNT 18.4 10^3/uL (4.3-11.0)
[2019-09-09 13:57] LABS: ALANINE AMINOTRANSFERASE 16 U/L (0-55); ALBUMIN 4.1 GM/DL (3.2-4.5); ALKALINE PHOSPHATASE 91 U/L (40-136); BILIRUBIN,TOTAL 0.5 MG/DL (0.1-1.0); BUN/CREATININE RATIO 6; CALCIUM 9.2 MG/DL (8.5-10.1); CARBON DIOXIDE 22 MMOL/L (21-32); CHLORIDE 104 MMOL/L (98-107); CREATININE SERUM 0.98 MG/DL (0.60-1.30); GFR ESTIMATED > 60; GLUCOSE 103 MG/DL (70-105); POTASSIUM 3.4 MMOL/L (3.6-5.0); SODIUM 136 MMOL/L (135-145); TOTAL PROTEIN 7.4 GM/DL (6.4-8.2)
[2019-09-09 14:01] LABS: BACTERIA,URINE FEW /HPF; SQUAMOUS EPITHELIAL CELL,UR >50 /HPF
[2019-09-09 14:02] LABS: TRICHOMONAS,URINE FEW /HPF
[2019-09-09] MEDS ORDERED: KETOROLAC 30 MG/ML VIAL IVP STA (14:06)
[2019-09-09] MEDS ORDERED: cefTRIAXone FOR IV USE 1,000 MG in WATER (STERILE) FOR INJECTION 10 ML IV ONE (14:15)
[2019-09-09] MEDS ORDERED: metroNIDAZOLE 500 MG (FLAGYL) TAB PO ONE (14:15)
[2019-09-09 14:31] LABS: BAND NEUTROPHILS 2 %; BASOPHILS % (MANUAL) 0 %; EOSINOPHILS % (MANUAL) 0 %; LYMPHOCYTES % (MANUAL) 7 %; MONOCYTES % (MANUAL) 3 %; NEUTROPHILS % (MANUAL) 88 %; RBC MORPH NORMAL
--- NOTE | 2019-09-09 15:04 | Diagnostic Imaging Report ---
PROCEDURE: CT urinary tract, rule out kidney stone. TECHNIQUE: Multiple contiguous axial images were obtained through the abdomen and pelvis without the use of intravenous contrast. Auto Exposure Controls were utilized during the CT exam to meet ALARA standards for radiation dose reduction. INDICATION: Left flank pain, left lower quadrant pain, fever. FINDINGS: There are no radiodense urinary tract stones. There is no hydroureteronephrosis. No perinephric edema or fluid collection. Liver, gallbladder, spleen, adrenals, and pancreas are nonacute. The aorta is nonaneurysmal. There is no evidence for appendicitis or diverticulitis. The uterus, adnexa, and urinary bladder are unremarkable. No focal inflammatory process. There is trace free fluid in the pelvic cul-de-sac, unremarkable in volume in a female patient of this age. IMPRESSION: Unobstructed urinary tracts with no visualized stone. No focal inflammatory process or acute abnormalities identified. Dictated by: Dictated on workstation # [id number]
[2019-09-09] MEDS ORDERED: METR500T PO (15:20)
[2019-09-09] MEDS ORDERED: DOXY100T2 PO (15:20)
[2019-09-09 15:35] VITALS: BP 135/86
== END 2019-09-09 15:35 | disposition home or self-care (01) ==
LOC: EDUNIT# 13:03 → ER 13:04
DX: N39.0 Urinary tract infection, site not specified (principal); N73.9 Female pelvic inflammatory disease, unspecified; A59.8 Trichomoniasis of other sites; F17.210 Nicotine dependence, cigarettes, uncomplicated
CPT/HCPCS: 36415; 74176; 80053; 81000; 84703; 85007; 85027; 87077; 87088; 87186; 87491; 87591

== ENCOUNTER 2020-04-01 22:37 | Emergency (ER) | payer SELFPAY ==
[~2020-04-01 22:37] MED LIST changes: +CEFD300C3 PO; +DOXY100T2 PO
[2020-04-01] MEDS ORDERED: LACTATED RINGERS 1,000 ML IV ONE (22:53)
[2020-04-01 23:15] LABS: BASOPHILS % (AUTO) 0 % (0-10); EOSINOPHILS # (AUTO) 0.1 10^3/uL (0.0-0.3); EOSINOPHILS % (AUTO) 1 % (0-10); HEMATOCRIT 39 % (35-52); HEMOGLOBIN 13.1 G/DL (11.5-16.0); LYMPHOCYTES # (AUTO) 4.1 X 10^3 (1.0-4.0); LYMPHOCYTES % (AUTO) 41 % (12-44); MEAN CORPUSCULAR HEMOGLOBIN 30 PG (25-34); MEAN CORPUSCULAR HGB CONC 33 G/DL (32-36); MEAN CORPUSCULAR VOLUME 90 FL (80-99); MEAN PLATELET VOLUME 11.2 FL (7.4-10.4); MONOCYTES # (AUTO) 0.4 X 10^3 (0.0-1.0); MONOCYTES % (AUTO) 4 % (0-12); NEUTROPHILS # (AUTO) 5.4 X 10^3 (1.8-7.8); NEUTROPHILS % (AUTO) 54 % (42-75); PLATELET COUNT 248 10^3/uL (130-400)
[2020-04-01 23:19] LABS: BILIRUBIN,URINE NEGATIVE (NEGATIVE); CLARITY,URINE CLEAR; COLOR,URINE YELLOW; GLUCOSE, URINE (UA) NEGATIVE (NEGATIVE); KETONES,URINE NEGATIVE (NEGATIVE); LEUKOCYTE ESTERASE ,URINE NEGATIVE (NEGATIVE); NITRITE,URINE NEGATIVE (NEGATIVE); PH,URINE 5.5 (5-9); PROTEIN,URINE NEGATIVE (NEGATIVE)
--- NOTE | 2020-04-01 23:21 | ED Neurological Problem ---
General Chief Complaint: Neurological Problems Stated Complaint: SEIZURE Nursing Triage Note: TO ED ROOM 3 VIA [facility] AFTER SEIZURES AT HOME. 10MG TOTAL IM VERSED GIVEN AT SCENE. PT UNRESPONSIVE AT TIME OF ARRIVAL. VSS. 02 98% ON RA. Nursing Sepsis Screen: No Definite Risk Source: EMS Exam Limitations: clinical condition History of Present Illness Date Seen by Provider: Apr 01, 2020 Time Seen by Provider: 22:50 Initial Comments Here by EMS with report of persistent seizure. Per bystanders at the scene, patient had seizure that started at 2206 and lasted for a few minutes and then resolved. She was able to text somebody afterwards apparently that she was given a have another seizure and then did. EMS was summoned and arrived and patient was in full body tonic-clonic type seizure. They did administer Versed 5 mg IM. Seizure continued. They repeated another dose of 5 mg IM and seizure continued. Patient incontinent of stool. No reported injury. Ultimately the patient then began to settle down and shaking went to just the arms. That subsequently her resolved and route here. Arrives unresponsive but protecting airway. No seizure activity currently. Does have family history of seizures but none noted in the patient per records review. Patient does not answer questions. Timing/Duration: 1 hour, waxing and waning Severity: severe Associated Symptoms: seizures Allergies and Home Medications Allergies Coded Allergies: acetaminophen (Verified Allergy, Mild, Rash, 11/24/19) Home Medications Cefdinir 300 Mg Capsule, 300 MG PO BID Prescribed by: GONZALO RAY on 11/26/19 1016 Patient Home Medication List Home Medication List Reviewed: Yes Review of Systems Review of Systems Constitutional: see HPI; No fever Psychiatric/Neurological: Tonic Clonic Seizures Unable to complete review of systems due to altered mental status Past Bkwcwld-Kiqxhp-Ctwljh Hx Past Med/Social Hx: Reviewed Nursing Past Med/Soc Hx Patient Social History Alcohol Use: Occasionally Uses Number of Drinks Today: AA Alcohol Beverage of Choice: Beer Recreational Drug Use: Yes Drug of Choice: marijuana, METH (IV) Type Used: Cigarettes 2nd Hand Smoke Exposure: Yes Recent Foreign Travel: No Contact w/Someone Who Travel: No Recent Infectious Disease Expo: No Recent Hopitalizations: No Physical Abuse: No Sexual Abuse: No Mistreated: No Fear: No Immunizations Up To Date Tetanus Booster (TDap): Less than 5yrs PED Vaccines UTD: Yes Date of Pneumonia Vaccine: Apr 12, 2013 Date of Influenza Vaccine: Apr 12, 2016 Seasonal Allergies Seasonal Allergies: No Past Medical History Surgeries: Yes (TEETH REMOVED) Respiratory: No Cardiac: No Neurological: Yes (SEIZURES PER PT--NO PHYSICAN DOCUMENTED SEIZURES) Seizure Disorder Reproductive Disorders: Yes (CHRONIC PELVIC PAIN ) Female Reproductive Disorders: Menstrual Problems, Pelvic Inflammatory Dis, Endometriosis Sexually Transmitted Disease: Yes (gonorrhea and Chlamydia) HIV/AIDS: No Genitourinary: Yes Bladder Infection Gastrointestinal: No Musculoskeletal: No Endocrine: Yes ("HYPOGLYCEMIC" PER PT) HEENT: No Cancer: No Psychosocial: Yes Depression Integumentary: No Blood Disorders: No Adverse Reaction/Blood Tranf: No Family Medical History Reviewed Nursing Family Hx No Pertinent Family Hx Physical Exam Vital Signs Vital Signs - First Documented 04/01/20 22:37 Temp 36.6 Pulse 65 Resp 14 B/P (MAP) 108/74 (85) O2 Delivery Room Air Capillary Refill : Less Than 3 Seconds Height, Weight, BMI Height: 5'6.00" Weight: 128lbs. 0.0oz. 58.854821al; BMI Method:Stated General Appearance: WD/WN, no apparent distress HEENT: PERRL/EOMI, pharynx normal Neck: supple, normal inspection Respiratory: lungs clear, normal breath sounds Cardiovascular: regular rate, rhythm, no murmur Peripheral Pulses: 2+ Dorsalis Pedis (R), 2+ Left Dors-Pedis (L), 2+ Radial Pulses (R), 2+ Radial Pulses (L) Gastrointestinal: normal bowel sounds, non tender, soft Extremities: non-tender, no pedal edema, no calf tenderness Neurologic/Psychiatric: other (unresponsive but protecting airway) Skin: normal color, warm/dry Progress/Results/Core Measures Results/Orders Lab Results Laboratory Tests Test 04/01/20 22:52 04/01/20 23:00 Range/Units White Blood Count 10.0 4.3-11.0 10^3/uL Red Blood Count 4.39 4.35-5.85 10^6/uL Hemoglobin 13.1 11.5-16.0 G/DL Hematocrit 39 35-52 % Mean Corpuscular Volume 90 80-99 FL Mean Corpuscular Hemoglobin 30 25-34 PG Mean Corpuscular Hemoglobin Concent 33 32-36 G/DL Red Cell Distribution Width 13.4 10.0-14.5 % Platelet Count 248 130-400 10^3/uL Mean Platelet Volume 11.2 H 7.4-10.4 FL Neutrophils (%) (Auto) 54 42-75 % Lymphocytes (%) (Auto) 41 12-44 % Monocytes (%) (Auto) 4 0-12 % Eosinophils (%) (Auto) 1 0-10 % Basophils (%) (Auto) 0 0-10 % Neutrophils # (Auto) 5.4 1.8-7.8 X 10^3 Lymphocytes # (Auto) 4.1 H 1.0-4.0 X 10^3 Monocytes # (Auto) 0.4 0.0-1.0 X 10^3 Eosinophils # (Auto) 0.1 0.0-0.3 10^3/uL Basophils # (Auto) 0.0 0.0-0.1 10^3/uL Sodium Level 142 135-145 MMOL/L Potassium Level 3.8 3.6-5.0 MMOL/L Chloride Level 110 H 98-107 MMOL/L Carbon Dioxide Level 23 21-32 MMOL/L Anion Gap 9 5-14 MMOL/L Blood Urea Nitrogen 10 7-18 MG/DL Creatinine 0.85 0.60-1.30 MG/DL Estimat Glomerular Filtration Rate > 60 BUN/Creatinine Ratio 12 Glucose Level 89 70-105 MG/DL Calcium Level 9.2 8.5-10.1 MG/DL Corrected Calcium 9.0 8.5-10.1 MG/DL Magnesium Level 2.3 1.6-2.4 MG/DL Total Bilirubin 0.3 0.1-1.0 MG/DL Aspartate Amino Transf (AST/SGOT) 18 5-34 U/L Alanine Aminotransferase (ALT/SGPT) 15 0-55 U/L Alkaline Phosphatase 50 40-136 U/L C-Reactive Protein High Sensitivity 0.02 0.00-0.50 MG/DL Total Protein 7.2 6.4-8.2 GM/DL Albumin 4.2 3.2-4.5 GM/DL TSH [place] Testing 1.03 0.35-4.94 UIU/ML Serum Test, Qualitative NEGATIVE NEGATIVE Salicylates Level < 5.0 L 5.0-20.0 MG/DL Acetaminophen Level < 10 L 10-30 UG/ML Serum Alcohol 182 H <10 MG/DL Urine Color YELLOW Urine Clarity CLEAR Urine pH 5.5 5-9 Urine Specific [place] <=1.005 1.016-1.022 Urine Protein NEGATIVE NEGATIVE Urine Glucose (UA) NEGATIVE NEGATIVE Urine Ketones NEGATIVE NEGATIVE Urine Nitrite NEGATIVE NEGATIVE Urine Bilirubin NEGATIVE NEGATIVE Urine Urobilinogen 0.2 < = 1.0 MG/DL Urine Leukocyte Esterase NEGATIVE NEGATIVE Urine RBC (Auto) NEGATIVE NEGATIVE Urine RBC NONE /HPF Urine WBC NONE /HPF Urine Squamous Epithelial Cells RARE /HPF Urine Crystals NONE /LPF Urine Bacteria NEGATIVE /HPF Urine Casts NONE /LPF Urine Mucus NEGATIVE /LPF Urine Culture Indicated NO Urine Opiates Screen NEGATIVE NEGATIVE Urine Oxycodone Screen NEGATIVE NEGATIVE Urine Methadone Screen NEGATIVE NEGATIVE Urine Propoxyphene Screen NEGATIVE NEGATIVE Urine Barbiturates Screen NEGATIVE NEGATIVE Ur Tricyclic Antidepressants Screen NEGATIVE NEGATIVE Urine Phencyclidine Screen NEGATIVE NEGATIVE Urine Amphetamines Screen NEGATIVE NEGATIVE Urine Methamphetamines Screen NEGATIVE NEGATIVE Urine Benzodiazepines Screen NEGATIVE NEGATIVE Urine Cocaine Screen NEGATIVE NEGATIVE Urine Cannabinoids Screen NEGATIVE NEGATIVE My Orders Orders - JAMIE JAY MD Acetaminophen (04/01/20 22:53) Alcohol (04/01/20 22:53) Cbc With Automated Diff (04/01/20 22:53) Comprehensive Metabolic Panel (04/01/20 22:53) Hs C Reactive Protein (04/01/20 22:53) Drug Screen Stat (Urine) (04/01/20 22:53) Hcg,Qualitative Serum (04/01/20 22:53) Magnesium (04/01/20 22:53) Salicylate (04/01/20 22:53) Thyroid Analyzer (04/01/20 22:53) Ua Culture If Indicated (04/01/20 22:53) Chest 1 View, Ap/Pa Only (04/01/20 22:53) Ct Head Wo (04/01/20 22:53) Ed Iv/Invasive Line Start (04/01/20 22:53) Lactated Ringers (Lr 1000 Ml Iv Solution (04/01/20 22:53) Catheter(Urinary) Insert & Ass 15 (04/01/20 22:53) Monitor-Rhythm Ecg Trace Only (04/01/20 22:53) Medications Given in ED Current Medications Medications Dose Ordered Sig/Jaziel Route Start Time Stop Time Status Last Admin Dose Admin Lactated Ringer's 1,000 ml @ 0 mls/hr Q0M ONCE IV 04/01/20 22:53 04/01/20 22:56 DC 04/01/20 23:15 999 MLS/HR Vital Signs/I&O 04/01/20 22:37 Temp 36.6 Pulse 65 Resp 14 B/P (MAP) 108/74 (85) O2 Delivery Room Air Blood Pressure Mean: 85 Progress Progress Note : Progress Note Seen and evaluated on arrival by EMS. IV initiated. Labs, UA, Case catheter, UDS, LR 1 L bolus ordered. Monitor patient. 0011: Patient now awake and once her phone. She does not want to stay. Alcohol level noted to be 180 but she is up and talking and knows where she is at what's going on. She does not want further treatment. This did again findings noted other than elevated alcohol. CT negative. Discharged home with return precautions. Patient verbalize understanding instructions and agreement with plan. Diagnostic Imaging Diagonstic Imaging: Xray Plain Films/CT/US/NM/MRI: chest Comments No acute findings Reviewed: Reviewed by Me Diagonstic Imaging: CT Plain Films/CT/US/NM/MRI: head Comments No acute intracranial pathology seen Reviewed: Reviewed [place] Study, Reviewed by Me Departure Impression Primary Impression: Seizure Additional Impression: Alcohol intoxication Qualified Codes: F10.920 - Alcohol use, unspecified with intoxication, uncomplicated Disposition: 01 HOME, SELF-CARE Condition: Stable Departure-Patient Inst. Decision time for Depature: 00:13 Referrals: TORI GRAY MD (PCP/Family) Primary Care Physician Patient Instructions: Alcohol Abuse and Alcoholism (DC), Seizures, Adult (DC) Add. Discharge Instructions: All discharge instructions reviewed with patient and/or family. Voiced understanding. Continue home meds as previously prescribed. Follow-up with Dr. Babcock for recheck and further evaluation. I encourage you to not use alcohol and continue to avoid drugs. You should seek further counseling for alcohol use and for concerns related to stressors in her life. This may include mental health counselor and or debi-based resource groups. Return for worse pain, fever, vomiting, weakness, breathing problems or other concerns as needed. Talk with your doctor about the seizures. Do not drive or perform high risk activities that would increase your or other persons risk of injury if you were to have seizure. Copy Copies To 1: DANNIE,JAMIE LEIJA MD, MD Apr 01, 2020 23:20
[2020-04-01 23:27] LABS: CHLORIDE 110 MMOL/L (98-107); POTASSIUM 3.8 MMOL/L (3.6-5.0); SODIUM 142 MMOL/L (135-145)
[2020-04-01 23:28] LABS: ALBUMIN 4.2 GM/DL (3.2-4.5)
[2020-04-01 23:29] LABS: CALCIUM 9.2 MG/DL (8.5-10.1)
[2020-04-01 23:30] LABS: GLUCOSE 89 MG/DL (70-105); TOTAL PROTEIN 7.2 GM/DL (6.4-8.2)
[2020-04-01 23:31] LABS: CARBON DIOXIDE 23 MMOL/L (21-32)
[2020-04-01 23:32] LABS: BILIRUBIN,TOTAL 0.3 MG/DL (0.1-1.0)
[2020-04-01 23:33] LABS: AMPHETAMINE SCREEN, URINE NEGATIVE (NEGATIVE); BARBITURATE SCREEN URINE NEGATIVE (NEGATIVE); BENZODIAZEPINES SCREEN URINE NEGATIVE (NEGATIVE); CANNABINOID SCREEN, URINE NEGATIVE (NEGATIVE); COCAINE SCREEN URINE NEGATIVE (NEGATIVE); METHADONE STAT NEGATIVE (NEGATIVE); METHAMPHETAMINE SCREEN URINE S NEGATIVE (NEGATIVE); OPIATE SCREEN URINE NEGATIVE (NEGATIVE); OXYCODONE STAT NEGATIVE (NEGATIVE); PROPOXYPHENE STAT NEGATIVE (NEGATIVE); TRICYCLIC ANTIDEPRESSANTS SCRE NEGATIVE (NEGATIVE)
[2020-04-01 23:34] LABS: BACTERIA,URINE NEGATIVE /HPF; SQUAMOUS EPITHELIAL CELL,UR RARE /HPF
[2020-04-01 23:34] LABS: ALKALINE PHOSPHATASE 50 U/L (40-136); CREATININE SERUM 0.85 MG/DL (0.60-1.30); GFR ESTIMATED > 60
[2020-04-01 23:35] LABS: BUN/CREATININE RATIO 12
[2020-04-01 23:37] LABS: ALANINE AMINOTRANSFERASE 15 U/L (0-55); SALICYLATE < 5.0 MG/DL (5.0-20.0)
[2020-04-01 23:38] LABS: MAGNESIUM 2.3 MG/DL (1.6-2.4)
[2020-04-01 23:41] LABS: ACETAMINOPHEN < 10 UG/ML (10-30)
[2020-04-01 23:58] LABS: TSH (THYROID ANALYZER) 1.03 UIU/ML (0.35-4.94)
--- NOTE | 2020-04-02 00:05 | NUR ---
PT SITTING UP IN BED SCREAMING, "I WANT MY FUCKING PHONE. GIVE ME MY FUCKING PHONE." PT IV TUBING, DEVI CATHETER, TELEMETRY CORDS AT THREAT OF BEING PULLED OUT BECAUSE PT IS AT END OF BED YELLING AT STAFF TO GIVE BACK HER CELL PHONE. PT INSTRUCTED THAT YELLING, CURSING AT STAFF, AND OTHER SIMILAR BEHAVIORS WOULD NOT BE TOLERATED. DR. JAY IN ROOM AT TIME.
[2020-04-02 00:19] VITALS: BP 106/48
--- NOTE | 2020-04-02 06:10 | Diagnostic Imaging Report ---
PROCEDURE: CT head without contrast. TECHNIQUE: Multiple contiguous axial images were obtained through the brain without the use of intravenous contrast. Auto Exposure Controls were utilized during the CT exam to meet ALARA standards for radiation dose reduction. INDICATION: Seizure, unresponsive COMPARISON: 10/03/2014 FINDINGS: The ventricles and cortical sulci are age-appropriate. There is no midline shift or mass effect. No acute intracranial hemorrhage is seen. There is no CT evidence of acute territorial ischemia. The calvarium appears intact. The visualized paranasal sinuses are clear. IMPRESSION: 1. No acute intracranial hemorrhage or CT evidence of acute territorial ischemia. No significant changes from the preliminary report. Dictated by: Dictated on workstation # [id number]
--- NOTE | 2020-04-02 06:19 | Diagnostic Imaging Report ---
INDICATION: Seizure COMPARISON: 11/24/2019 FINDINGS: Single view of the chest demonstrates clear lungs bilaterally. The heart is normal. There is no pneumothorax. The osseous structures normal. IMPRESSION: Negative chest Dictated by: Dictated on workstation # [id number]
== END 2020-04-02 00:30 | disposition home or self-care (01) ==
LOC: EDUNIT# 22:37 → ER 22:46
DX: G40.909 Epilepsy, unspecified, not intractable, without status epilepticus (principal); F10.129 Alcohol abuse with intoxication, unspecified; Z88.6 Allergy status to analgesic agent; Z77.22 Contact with and (suspected) exposure to environmental tobacco smoke (acute) (chronic)
CPT/HCPCS: 51702; 70450; 71045; 80053; 80306; 81000; 83735; 84443; 84703; 85025; 86141; 93041; 99284; G0480 ×3; 36415; 80320; 80329

== ENCOUNTER 2020-06-17 13:10 | Emergency (ER) | payer SELFPAY ==
[~2020-06-17] VITALS: Ht 167 cm; Wt 63.0 kg
[~2020-06-17 13:10] MED LIST changes: -CLIN300C11 PO; +CLIN300C12 PO
[2020-06-17] MEDS ORDERED: NS IV 1000 ML 1,000 ML IV SCH ×2 (13:45→14:45)
[2020-06-17] MEDS ORDERED: fentaNYL INJECTION 100 MCG/2 ML AMP IVP ONE (13:45)
[2020-06-17 13:50] LABS: BASOPHILS # (AUTO) 0.1 10^3/uL (0.0-0.1); BASOPHILS % (AUTO) 0 % (0-10); EOSINOPHILS % (AUTO) 0 % (0-10); HEMATOCRIT 40 % (35-52); HEMOGLOBIN 13.2 g/dL (11.5-16.0); LYMPHOCYTES # (AUTO) 2.6 10^3/uL (1.0-4.0); LYMPHOCYTES % (AUTO) 10 % (12-44); MEAN CORPUSCULAR HEMOGLOBIN 30 pg (25-34); MEAN CORPUSCULAR HGB CONC 33 g/dL (32-36); MEAN CORPUSCULAR VOLUME 90 fL (80-99); MEAN PLATELET VOLUME 11.5 fL (9.0-12.2); MONOCYTES # (AUTO) 1.1 10^3/uL (0.0-1.0); MONOCYTES % (AUTO) 4 % (0-12); NEUTROPHILS # (AUTO) 22.6 10^3/uL (1.8-7.8); NEUTROPHILS % (AUTO) 85 % (42-75); PLATELET COUNT 244 10^3/uL (130-400); WHITE BLOOD COUNT 26.7 10^3/uL (4.3-11.0)
[2020-06-17 13:51] LABS: CLARITY,URINE SL CLOUDY; COLOR,URINE YELLOW; GLUCOSE, URINE (UA) NEGATIVE (NEGATIVE); KETONES,URINE TRACE (NEGATIVE); LEUKOCYTE ESTERASE ,URINE NEGATIVE (NEGATIVE); NITRITE,URINE POSITIVE (NEGATIVE); PH,URINE 5.5 (5-9); PROTEIN,URINE 1+ (NEGATIVE)
[2020-06-17 14:06] LABS: ALBUMIN 3.8 GM/DL (3.2-4.5); CHLORIDE 100 MMOL/L (98-107); SODIUM 136 MMOL/L (135-145)
[2020-06-17 14:07] LABS: CALCIUM 8.4 MG/DL (8.5-10.1)
[2020-06-17 14:08] LABS: GLUCOSE 101 MG/DL (70-105); TOTAL PROTEIN 7.3 GM/DL (6.4-8.2)
[2020-06-17 14:09] LABS: CARBON DIOXIDE 25 MMOL/L (21-32)
[2020-06-17 14:10] LABS: BILIRUBIN,TOTAL 1.3 MG/DL (0.1-1.0)
[2020-06-17 14:12] LABS: ALKALINE PHOSPHATASE 78 U/L (40-136); CREATININE SERUM 0.87 MG/DL (0.60-1.30); GFR ESTIMATED > 60
[2020-06-17 14:13] LABS: BUN/CREATININE RATIO 9
[2020-06-17 14:15] LABS: ALANINE AMINOTRANSFERASE 11 U/L (0-55); BACTERIA,URINE FEW /HPF; BILIRUBIN,URINE 2+ (NEGATIVE); WBC,URINE >100 /HPF
[2020-06-17 14:16] LABS: AMPHETAMINE SCREEN, URINE POSITIVE (NEGATIVE); BARBITURATE SCREEN URINE NEGATIVE (NEGATIVE); BENZODIAZEPINES SCREEN URINE NEGATIVE (NEGATIVE); CANNABINOID SCREEN, URINE POSITIVE (NEGATIVE); COCAINE SCREEN URINE NEGATIVE (NEGATIVE); METHADONE STAT NEGATIVE (NEGATIVE); METHAMPHETAMINE SCREEN URINE S POSITIVE (NEGATIVE); OPIATE SCREEN URINE NEGATIVE (NEGATIVE); OXYCODONE STAT NEGATIVE (NEGATIVE); PROPOXYPHENE STAT NEGATIVE (NEGATIVE); TRICYCLIC ANTIDEPRESSANTS SCRE NEGATIVE (NEGATIVE)
[2020-06-17] MEDS ORDERED: KCL 10 MEQ TAB (MICRO K) PO STA (14:25)
[2020-06-17] MEDS ORDERED: cefTRIAXone FOR IV USE 2,000 MG in WATER (STERILE) FOR INJECTION 20 ML IV ONE (14:30)
[2020-06-17 14:32] LABS: EOSINOPHILS % (MANUAL) 1 %; LYMPHOCYTES % (MANUAL) 10 %; MONOCYTES % (MANUAL) 4 %; NEUTROPHILS % (MANUAL) 85 %; RBC MORPH NORMAL
--- NOTE | 2020-06-17 14:38 | ED GI ---
General Chief Complaint: Abdominal/GI Problems Stated Complaint: ABD PAIN Nursing Triage Note: Pt here with diffuse abdominal pain since Thursday after having sex. Sepsis Screen: No Definite Risk History of Present Illness Date Seen by Provider: Jun 17, 2020 Time Seen by Provider: 13:30 Initial Comments 30 year old female presents for generalized abdominal pain, since intercourse on 06/15/20. She denies pain at time of intercourse, but pain since then. Denies any trauma during intercourse or use of sexual toys/contraptions. Reports having menstrual cycle on 06/14/20, lasted one day and removed tampons. Denies any vaginal discharge or nausea/vomiting. Reports occ use of marijuana, no other drug use. Denies a menstrual cycle in May, but reports having one in Apr. Sexually active, same partner for last few months, denies STIs, does not use condoms. Timing/Duration: 12 Hours Severity/Quality: Moderate Location: Generalized Abdomen, Suprapubic Radiation: No Radiation Associated Symptoms: No Back Pain, No Fever/Chills, No Nausea/Vomiting, No Shortness of Air Allergies and Home Medications Allergies Coded Allergies: acetaminophen (Verified Allergy, Mild, Rash, 11/24/19) Home Medications Cefdinir 300 Mg Capsule, 300 MG PO BID Prescribed by: GONZALO RAY on 11/26/19 1016 Nitrofurantoin Monohyd/M-Cryst 100 Mg Capsule, 1 TAB PO BID Prescribed by: CHARLIE COLLINS on 06/17/20 1618 Patient Home Medication List Home Medication List Reviewed: Yes Review of Systems Review of Systems Constitutional: no symptoms reported, see HPI Gastrointestinal: See HPI, Abdominal Pain; Denies Constipated, Denies Diarrhea, Denies Nausea, Denies Poor Appetite; Poor Fluid Intake; Denies Rectal Bleeding, Denies Vomiting Genitourinary: See HPI; Denies Discharge, Denies Frequency, Denies Flank Pain, Denies Hematuria Musculoskeletal: no symptoms reported, see HPI; No back pain Skin: no symptoms reported, see HPI All Other Systems Reviewed Negative Unless Noted: Yes Past Ndetari-Gkajha-Zjsvje Hx Past Med/Social Hx: Reviewed Nursing Past Med/Soc Hx Patient Social History Alcohol Use: Denies Use Number of Drinks Today: AA Alcohol Beverage of Choice: Beer Recreational Drug Use: No Drug of Choice: marijuana, METH (IV) Smoking Status: Current Everyday Smoker Type Used: Cigarettes 2nd Hand Smoke Exposure: Yes Recent Foreign Travel: No Contact w/Someone Who Travel: No Recent Infectious Disease Expo: No Recent Hopitalizations: No Immunizations Up To Date Tetanus Booster (TDap): Less than 5yrs PED Vaccines UTD: Yes Date of Pneumonia Vaccine: Apr 12, 2013 Date of Influenza Vaccine: Apr 12, 2016 Seasonal Allergies Seasonal Allergies: No Past Medical History Surgeries: Yes (TEETH REMOVED) Respiratory: No Cardiac: No Neurological: Yes (SEIZURES PER PT--NO PHYSICAN DOCUMENTED SEIZURES) Seizure Disorder Last Menstrual Period: Jun 14, 2020 Hx : 4 Hx Para: 4 Reproductive Disorders: Yes (CHRONIC PELVIC PAIN ) Female Reproductive Disorders: Menstrual Problems, Pelvic Inflammatory Dis, Endometriosis Sexually Transmitted Disease: Yes (gonorrhea and Chlamydia) HIV/AIDS: No Genitourinary: Yes Bladder Infection Gastrointestinal: No Musculoskeletal: No Endocrine: Yes ("HYPOGLYCEMIC" PER PT) HEENT: No Cancer: No Psychosocial: Yes Depression Integumentary: No Blood Disorders: No Adverse Reaction/Blood Tranf: No Family Medical History No Pertinent Family Hx Physical Exam Vital Signs Vital Signs - First Documented 06/17/20 13:27 Temp 36.5 Pulse 102 Resp 18 B/P (MAP) 122/74 (90) Pulse Ox 100 O2 Delivery Room Air Capillary Refill : Less Than 3 Seconds Height/Weight/BMI Height: 5'6.00" Weight: 128lbs. 0.0oz. 58.643218bc; 22.00 BMI Method:Stated General Appearance: WD/WN, mild distress (secondary to pain 10/10) HEENT: PERRL/EOMI, normal ENT inspection, TMs normal, pharynx normal Neck: non-tender, full range of motion, supple, normal inspection Respiratory: chest non-tender, lungs clear, normal breath sounds Cardiovascular: normal peripheral pulses, regular rate, rhythm, no edema Gastrointestinal: normal bowel sounds, soft, tenderness (generalized, increaseed suprapubic. ) Extremities: normal range of motion, non-tender, normal inspection Back: normal inspection, no CVA tenderness Neurologic/Psychiatric: no motor/sensory deficits, alert, normal mood/affect, oriented x 3 Skin: normal color, warm/dry Exam Comments Patient reports inability to urinate, straight cath performed, trace bloody vaginal discharge noted compatible with menstrual cycle, no external lesions noted. Focused Exam Lactate Level 12/6/20 15:00: Lactic Acid Level 0.89 Lactic Acid Level Laboratory Tests Test 06/17/20 15:00 Lactic Acid Level 0.89 MMOL/L (0.50-2.00) Progress/Results/Core Measures Results/Orders Lab Results Laboratory Tests Test 06/17/20 13:40 06/17/20 15:00 Range/Units White Blood Count 26.7 H 4.3-11.0 10^3/uL Red Blood Count 4.43 3.80-5.11 10^6/uL Hemoglobin 13.2 11.5-16.0 g/dL Hematocrit 40 35-52 % Mean Corpuscular Volume 90 80-99 fL Mean Corpuscular Hemoglobin 30 25-34 pg Mean Corpuscular Hemoglobin Concent 33 32-36 g/dL Red Cell Distribution Width 12.6 10.0-14.5 % Platelet Count 244 130-400 10^3/uL Mean Platelet Volume 11.5 9.0-12.2 fL Immature Granulocyte % (Auto) 1 % Neutrophils (%) (Auto) 85 H 42-75 % Lymphocytes (%) (Auto) 10 L 12-44 % Monocytes (%) (Auto) 4 0-12 % Eosinophils (%) (Auto) 0 0-10 % Basophils (%) (Auto) 0 0-10 % Neutrophils # (Auto) 22.6 H 1.8-7.8 10^3/uL Lymphocytes # (Auto) 2.6 1.0-4.0 10^3/uL Monocytes # (Auto) 1.1 H 0.0-1.0 10^3/uL Eosinophils # (Auto) 0.0 0.0-0.3 10^3/uL Basophils # (Auto) 0.1 0.0-0.1 10^3/uL Immature Granulocyte # (Auto) 0.3 H 0.0-0.1 10^3/uL Neutrophils % (Manual) 85 % Lymphocytes % (Manual) 10 % Monocytes % (Manual) 4 % Eosinophils % (Manual) 1 % Blood Morphology Comment NORMAL Urine Color YELLOW Urine Clarity SL CLOUDY Urine pH 5.5 5-9 Urine Specific [place] >=1.030 1.016-1.022 Urine Protein 1+ H NEGATIVE Urine Glucose (UA) NEGATIVE NEGATIVE Urine Ketones TRACE H NEGATIVE Urine Nitrite POSITIVE H NEGATIVE Urine Bilirubin 2+ H NEGATIVE Urine Urobilinogen 2.0 < = 1.0 MG/DL Urine Leukocyte Esterase NEGATIVE NEGATIVE Urine RBC (Auto) 1+ H NEGATIVE Urine RBC 2-5 H /HPF Urine WBC >100 H /HPF Urine Squamous Epithelial Cells 2-5 /HPF Urine Crystals NONE /LPF Urine Bacteria FEW H /HPF Urine Casts NONE /LPF Urine Mucus MODERATE H /LPF Urine Culture Indicated YES Sodium Level 136 135-145 MMOL/L Potassium Level 3.0 L 3.6-5.0 MMOL/L Chloride Level 100 98-107 MMOL/L Carbon Dioxide Level 25 21-32 MMOL/L Anion Gap 11 5-14 MMOL/L Blood Urea Nitrogen 8 7-18 MG/DL Creatinine 0.87 0.60-1.30 MG/DL Estimat Glomerular Filtration Rate > 60 BUN/Creatinine Ratio 9 Glucose Level 101 70-105 MG/DL Calcium Level 8.4 L 8.5-10.1 MG/DL Corrected Calcium 8.6 8.5-10.1 MG/DL Total Bilirubin 1.3 H 0.1-1.0 MG/DL Aspartate Amino Transf (AST/SGOT) 8 5-34 U/L Alanine Aminotransferase (ALT/SGPT) 11 0-55 U/L Alkaline Phosphatase 78 40-136 U/L C-Reactive Protein High Sensitivity 22.81 H 0.00-0.50 MG/DL Total Protein 7.3 6.4-8.2 GM/DL Albumin 3.8 3.2-4.5 GM/DL Urine Opiates Screen NEGATIVE NEGATIVE Urine Oxycodone Screen NEGATIVE NEGATIVE Urine Methadone Screen NEGATIVE NEGATIVE Urine Propoxyphene Screen NEGATIVE NEGATIVE Urine Barbiturates Screen NEGATIVE NEGATIVE Ur Tricyclic Antidepressants Screen NEGATIVE NEGATIVE Urine Phencyclidine Screen NEGATIVE NEGATIVE Urine Amphetamines Screen POSITIVE H NEGATIVE Urine Methamphetamines Screen POSITIVE H NEGATIVE Urine Benzodiazepines Screen NEGATIVE NEGATIVE Urine Cocaine Screen NEGATIVE NEGATIVE Urine Cannabinoids Screen POSITIVE H NEGATIVE Lactic Acid Level 0.89 0.50-2.00 MMOL/L My Orders Orders - CHARLIE COLLINS Ua Culture If Indicated (06/17/20 13:14) Urine Bedside (06/17/20 13:14) Cbc With Automated Diff (06/17/20 13:32) Comprehensive Metabolic Panel (06/17/20 13:32) Hs C Reactive Protein (06/17/20 13:32) Drug Screen Stat (Urine) (06/17/20 13:32) Ed Iv/Invasive Line Start (06/17/20 13:32) Ns Iv 1000 Ml (Sodium Chloride 0.9%) (06/17/20 13:45) Fentanyl Injection (Sublimaze Injection (06/17/20 13:45) Manual Differential (06/17/20 13:40) Urine Culture (06/17/20 13:40) Ceftriaxone For Iv Use (Rocephin For I (06/17/20 14:30) Potassium Chloride (Tablet) (Klor Con Ta (06/17/20 14:25) Ed Iv/Invasive Line Start (06/17/20 14:41) Ns Iv 1000 Ml (Sodium Chloride 0.9%) (06/17/20 14:45) Lactic Acid Analyzer (06/17/20 14:50) Ct Abd/Pelvis Wo(Kidney Stone) (06/17/20 15:02) Ketorolac Injection (Toradol Injection) (06/17/20 15:09) Medications Given in ED Current Medications Medications Dose Ordered Sig/Jaziel Route Start Time Stop Time Status Last Admin Dose Admin Ceftriaxone Sodium 2000 mg/ Sterile Water 20 ml @ 240 mls/hr ONCE ONCE IV 06/17/20 14:30 06/17/20 14:34 DC 06/17/20 14:46 240 MLS/HR Fentanyl Citrate 50 mcg ONCE ONCE IVP 06/17/20 13:45 06/17/20 13:47 DC 06/17/20 13:52 50 MCG Vital Signs/I&O 06/17/20 06/17/20 06/17/20 13:27 15:00 16:28 Temp 36.5 Pulse 102 85 85 Resp 18 18 18 B/P (MAP) 122/74 (90) 112/68 112/68 Pulse Ox 100 100 98 O2 Delivery Room Air Room Air Blood Pressure Mean: 90 Progress Progress Note : Time: 13:30 Progress Note Patient seen and evaluated, will give normal saline 1 L per IV, labs, fentanyl 50 mcg IV for pain and continue to monitor. 1345 UTI noted, will give Rocephin 2 gm IV[address] abd/pelvis. 1450 Discussed urine drug screen findings with patient, she denies using methamphetamines, for several months, but does have intercourse with her significant other who uses methamphetamines and she was told this could make her screening positive. Stressed that she would not be + if she was not using meth. 1530 CT negative for acute findings. Discharge instructions and return precautions were reviewed with the patient. Stressed the importance of taking her oral antibiotics. Diagnostic Imaging Diagonstic Imaging: CT Plain Films/CT/US/NM/MRI: abdomen, pelvis Comments NAME: SAMUEL MILLER [facility] REC#: [id number] PT STATUS: REG ER : 1990 PHYSICIAN: CHARLIE COLLINS ADMIT DATE: 06/17/20/ER Signed Date of Exam:06/17/20 CT ABD/PELVIS WO(KIDNEY STONE) CT ABD/PELVIS WO(KIDNEY STONE) TECHNIQUE: Unenhanced CT imaging of the abdomen and pelvis was performed. 2D reformats were created and submitted for interpretation. Automatic exposure controls were utilized to optimize patient dose. INDICATION: Diffuse abdominal pain after intercourse. COMPARISON: None available. FINDINGS: Evaluation of the abdominal viscera is mildly limited without contrast. Lower chest: The lung bases are clear. No pericardial or pleural effusion. Peritoneum: No free intraperitoneal air or fluid. Liver and biliary system: Unenhanced liver is normal. Cholelithiasis. No appreciable gallbladder wall thickening. No biliary duct dilatation. Spleen and Pancreas: Spleen is normal. Unenhanced pancreas is grossly normal. Adrenals: Normal. tract: No renal or ureteral calculi. No obstructive uropathy. Uterus and ovaries are unremarkable. GI tract: Stomach is decompressed. No bowel obstruction. No pericolonic inflammatory changes. Normal appendix. Vasculature and Lymph nodes: Normal caliber aorta. No abdominal or pelvic lymphadenopathy. Musculoskeletal: No concerning osseous lesion. IMPRESSION: 1. No urinary tract calculi or obstructive uropathy. 2. No acute inflammatory process. 3. Cholelithiasis. Dictated by: Dictated on workstation # [id number] Dict: 06/17/20 1532 Trans: 06/17/20 1537 [facility] [id number] Interpreted by: LAKSHMI DEL CID MD Electronically signed by: LAKSHMI DEL CID MD 06/17/201536 Departure Impression Primary Impression: Urinary tract infection Qualified Codes: N30.01 - Acute cystitis with hematuria Additional Impressions: Abdominal pain Qualified Codes: R10.84 - Generalized abdominal pain Drug abuse Disposition: HOME, SELF-CARE Condition: Improved Departure-Patient Inst. Decision time for Depature: 15:50 Referrals: TORI GRAY MD (PCP/Family) Primary Care Physician Patient Instructions: Severe Abdominal Pain, Adult (DC), Drug Abuse and Drug Addiction (DC), Urinary Tract Infection, Adult (DC) Add. Discharge Instructions: Increase water intake, 16 oz every 2 hours while awake. Alternate between Tylenol 650 mg and ibuprofen 600 mg every 4 hours for pain. Follow-up with your primary care provider if symptoms are not improving or worsen. Take antibiotics as prescribed. Return to the emergency department for new, urgent healthcare needs. All discharge instructions reviewed with patient and/or family. Voiced understanding. Scripts Nitrofurantoin Monohyd/M-Cryst (Macrobid 100 mg Capsule) 100 Mg Capsule 1 TAB PO BID, #20 CAP 0 Refills Prov: CHARLIE COLLINS 06/17/20 CHARLIE COLLINS Jun 17, 2020 14:38
--- NOTE | 2020-06-17 14:40 | NUR ---
Pt arrives with c/o diffuse abdominal pain; states she has had pain since having intercourse on 06/15/2020. Pt denies using instrumentation during intercourse and is unsure about retained tampon. Pt states she urinated this morning and it was dark. IV, labs, and urine sent to lab.
[2020-06-17] MEDS ORDERED: KETOROLAC 30 MG/ML VIAL IVP STA (15:09)
--- NOTE | 2020-06-17 15:37 | Diagnostic Imaging Report ---
CT ABD/PELVIS WO(KIDNEY STONE) TECHNIQUE: Unenhanced CT imaging of the abdomen and pelvis was performed. 2D reformats were created and submitted for interpretation. Automatic exposure controls were utilized to optimize patient dose. INDICATION: Diffuse abdominal pain after intercourse. COMPARISON: None available. FINDINGS: Evaluation of the abdominal viscera is mildly limited without contrast. Lower chest: The lung bases are clear. No pericardial or pleural effusion. Peritoneum: No free intraperitoneal air or fluid. Liver and biliary system: Unenhanced liver is normal. Cholelithiasis. No appreciable gallbladder wall thickening. No biliary duct dilatation. Spleen and Pancreas: Spleen is normal. Unenhanced pancreas is grossly normal. Adrenals: Normal. tract: No renal or ureteral calculi. No obstructive uropathy. Uterus and ovaries are unremarkable. GI tract: Stomach is decompressed. No bowel obstruction. No pericolonic inflammatory changes. Normal appendix. Vasculature and Lymph nodes: Normal caliber aorta. No abdominal or pelvic lymphadenopathy. Musculoskeletal: No concerning osseous lesion. IMPRESSION: 1. No urinary tract calculi or obstructive uropathy. 2. No acute inflammatory process. 3. Cholelithiasis. Dictated by: Dictated on workstation # [id number]
--- NOTE | 2020-06-17 15:40 | NUR ---
Pt reports feeling somewhat better although she still rates pain 10/10. She reports pain is worse with coughing and yawning.
[2020-06-17] MEDS ORDERED: NITR-65 PO (16:18)
[2020-06-17 16:28] VITALS: BP 112/68
== END 2020-06-17 16:15 | disposition home or self-care (01) ==
LOC: EDUNIT# 13:10 → ER 13:11
DX: N39.0 Urinary tract infection, site not specified (principal); R10.84 Generalized abdominal pain; F12.10 Cannabis abuse, uncomplicated; F17.210 Nicotine dependence, cigarettes, uncomplicated; Z88.6 Allergy status to analgesic agent
CPT/HCPCS: 36415; 74176; 80053; 80306; 81000; 83605; 84703; 85007; 85027; 86141; 87088

== ENCOUNTER 2021-01-18 17:48 | Emergency (ER) | payer SELFPAY ==
[~2021-01-18 17:48] MED LIST changes: -CLIN150C17 PO; +CLIN150C18 PO; +NITR-65 PO
--- NOTE | 2021-01-18 18:36 | ED GU-Female ---
General Chief Complaint: OB < 20 WEEKS Stated Complaint: 15 WKS PREG - BLEEDING Source: patient Exam Limitations: no limitations History of Present Illness Date Seen by Provider: Jan 18, 2021 Time Seen by Provider: 18:32 Initial Comments To ER with reports of vaginal bleeding after wiping just prior to arrival at 5pm. She estimates herself to be about 15 weeks . She is following with Dr. Simental. She is G5, P4. Timing/Duration: just prior to arrival Severity/Quality: moderate Location: unknown Activities at Onset: none Prior Genitourinary Problems: none Allergies and Home Medications Allergies Coded Allergies: acetaminophen (Verified Allergy, Mild, Rash, 11/24/19) Home Medications Cefdinir 300 Mg Capsule, 300 MG PO BID Prescribed by: GONZALO RAY on 11/26/19 1016 Nitrofurantoin Monohyd/M-Cryst 100 Mg Capsule, 1 TAB PO BID Prescribed by: CHARLIE COLLINS on 06/17/20 1618 Patient Home Medication List Home Medication List Reviewed: Yes Review of Systems Review of Systems Constitutional: see HPI EENTM: see HPI Respiratory: no symptoms reported Cardiovascular: no symptoms reported Genitourinary: no symptoms reported Musculoskeletal: no symptoms reported Skin: no symptoms reported Psychiatric/Neurological: No Symptoms Reported Endocrine: No Symptoms Reported Past Sgidjti-Hfnxlw-Srqfjx Hx Immunizations Up To Date Tetanus Booster (TDap): Less than 5yrs PED Vaccines UTD: Yes Seasonal Allergies Seasonal Allergies: No Past Medical History Surgeries: Yes (TEETH REMOVED) Respiratory: No Cardiac: No Neurological: Yes (SEIZURES PER PT--NO PHYSICAN DOCUMENTED SEIZURES) Seizure Disorder Reproductive Disorders: Yes (CHRONIC PELVIC PAIN ) Female Reproductive Disorders: Menstrual Problems, Pelvic Inflammatory Dis, Endometriosis Sexually Transmitted Disease: Yes (gonorrhea and Chlamydia) HIV/AIDS: No Genitourinary: Yes Bladder Infection Gastrointestinal: No Musculoskeletal: No Endocrine: Yes ("HYPOGLYCEMIC" PER PT) HEENT: No Cancer: No Psychosocial: Yes Depression Integumentary: No Blood Disorders: No Adverse Reaction/Blood Tranf: No Family Medical History No Pertinent Family Hx Physical Exam Vital Signs Capillary Refill : Height, Weight, BMI Height: 5'6.00" Weight: 128lbs. 0.0oz. 58.216329qe; 22.00 BMI Method:Stated General Appearance: WD/WN, no apparent distress, other (On the bedside ultrasound I am unable to identify a gravid uterus however there is some overlying bowel gas. test is pending.) HEENT: PERRL/EOMI, normal ENT inspection Neck: non-tender, full range of motion Respiratory: no respiratory distress, no accessory muscle use Gastrointestinal: normal bowel sounds, non tender, soft Neurologic/Psychiatric: alert, normal mood/affect, oriented x 3 Skin: normal color, warm/dry Progress/Results/Core Measures Suspected Sepsis SIRS Temperature: Pulse: Respiratory Rate: Blood Pressure / Mean: Results/Orders My Orders Orders - VESTA BISHOP APRN Abo Rh Type (01/18/21 18:06) Cbc With Automated Diff (01/18/21 18:06) Hcg,Quantitative (01/18/21 18:06) Us Ob Single Fetus<14 [id number] (01/18/21 18:15) Drug Screen Stat (Urine) (01/18/21 18:28) Vital Signs/I&O Capillary Refill : Departure Communication (Admissions) [id number]-Patient's significant other at the bedside was upset and we brought another patient back with a child stating that we likely did this because she is having a miscarriage and that we did this with ill intent. He became aggressive and was asked to leave and not come back. He then snuck back in when another patient was brought back. He was again asked to leave and refused to do so. He was then advised that police would be called and stated that if that happened "things would get rowdy". Then, he and Jeanne both left AGAINST MEDICAL ADVICE. Labs are pending. He states he is going to go to [place]. Impression Primary Impression: Left against medical advice Disposition: AGAINST MEDICAL ADVICE Condition: Against Medical Advice Departure-Patient Inst. Referrals: NO,LOCAL PHYSICIAN (PCP/Family) Primary Care Physician VESTA BISHOP APRN Jan 18, 2021 18:35
[2021-01-18 18:40] LABS: BASOPHILS % (AUTO) 0 % (0-10); EOSINOPHILS # (AUTO) 0.1 10^3/uL (0.0-0.3); EOSINOPHILS % (AUTO) 1 % (0-10); HEMATOCRIT 37 % (35-52); HEMOGLOBIN 12.3 g/dL (11.5-16.0); LYMPHOCYTES # (AUTO) 2.7 10^3/uL (1.0-4.0); LYMPHOCYTES % (AUTO) 28 % (12-44); MEAN CORPUSCULAR HEMOGLOBIN 31 pg (25-34); MEAN CORPUSCULAR HGB CONC 34 g/dL (32-36); MEAN CORPUSCULAR VOLUME 92 fL (80-99); MEAN PLATELET VOLUME 10.4 fL (9.0-12.2); MONOCYTES # (AUTO) 0.5 10^3/uL (0.0-1.0); MONOCYTES % (AUTO) 5 % (0-12); NEUTROPHILS # (AUTO) 6.3 10^3/uL (1.8-7.8); NEUTROPHILS % (AUTO) 65 % (42-75); PLATELET COUNT 271 10^3/uL (130-400); WHITE BLOOD COUNT 9.7 10^3/uL (4.3-11.0)
== END 2021-01-18 18:31 | disposition left against medical advice (07) ==
LOC: EDUNIT# 17:48 → ER 17:49
DX: O20.9 Hemorrhage in early pregnancy, unspecified (principal); Z87.42 Personal history of other diseases of the female genital tract; Z3A.15 15 weeks gestation of pregnancy
CPT/HCPCS: 36415; 84702; 85025; 86900; 86901

== ENCOUNTER 2021-01-25 21:10 | Emergency (ER) | payer SELFPAY ==
[~2021-01-25] VITALS: Ht 167 cm; Wt 68.0 kg
[~2021-01-25 21:10] MED LIST changes: -SULF1TAB35 PO; +SULF1TAB38 PO
[2021-01-25 21:44] LABS: BASOPHILS % (AUTO) 0 % (0-10); EOSINOPHILS % (AUTO) 1 % (0-10); HEMATOCRIT 37 % (35-52); HEMOGLOBIN 12.3 g/dL (11.5-16.0); LYMPHOCYTES # (AUTO) 2.6 10^3/uL (1.0-4.0); LYMPHOCYTES % (AUTO) 41 % (12-44); MEAN CORPUSCULAR HEMOGLOBIN 31 pg (25-34); MEAN CORPUSCULAR HGB CONC 33 g/dL (32-36); MEAN CORPUSCULAR VOLUME 92 fL (80-99); MEAN PLATELET VOLUME 10.7 fL (9.0-12.2); MONOCYTES # (AUTO) 0.4 10^3/uL (0.0-1.0); MONOCYTES % (AUTO) 6 % (0-12); NEUTROPHILS # (AUTO) 3.4 10^3/uL (1.8-7.8); NEUTROPHILS % (AUTO) 53 % (42-75); PLATELET COUNT 199 10^3/uL (130-400); WHITE BLOOD COUNT 6.4 10^3/uL (4.3-11.0)
[2021-01-25] MEDS ORDERED: LACTATED RINGERS 1,000 ML IV ONE (21:45)
[2021-01-25 21:54] LABS: ALBUMIN 3.6 GM/DL (3.2-4.5); CHLORIDE 109 MMOL/L (98-107); POTASSIUM 3.8 MMOL/L (3.6-5.0); SODIUM 141 MMOL/L (135-145)
[2021-01-25 21:56] LABS: CALCIUM 8.3 MG/DL (8.5-10.1)
[2021-01-25 21:57] LABS: GLUCOSE 98 MG/DL (70-105); TOTAL PROTEIN 6.4 GM/DL (6.4-8.2)
[2021-01-25 21:58] LABS: CARBON DIOXIDE 23 MMOL/L (21-32)
[2021-01-25 21:59] LABS: BILIRUBIN,TOTAL 0.2 MG/DL (0.1-1.0)
[2021-01-25 22:00] LABS: ALKALINE PHOSPHATASE 58 U/L (40-136); CREATININE SERUM 0.72 MG/DL (0.60-1.30); GFR ESTIMATED > 60
[2021-01-25 22:01] LABS: BUN/CREATININE RATIO 14
[2021-01-25 22:03] LABS: ALANINE AMINOTRANSFERASE 18 U/L (0-55)
--- NOTE | 2021-01-25 22:25 | ED GU-Female ---
General Chief Complaint: Female Reproductive Stated Complaint: APPROX 16 WKS PREG/HEAVY VAG BLEEDING Source: patient Exam Limitations: no limitations History of Present Illness Date Seen by Provider: Jan 25, 2021 Time Seen by Provider: 21:30 Initial Comments Patient to the ER by private conveyance from home with chief complaint for the past 2 to 3 days she been having some bloody discharge and tonight around 2 in the afternoon she started passing some more blood clots and having abdominal cramping. Her last menstrual period was sometime in October. She started following with Dr. Gray for OB. She is a . She has not had an ultrasound. She denies any significant medical history other than she has been hypoglycemic in the past. Family history of hypertension and diabetes. No seeing spots, upper abdominal pain, dysuria, diarrhea, cough, fevers or chills. Allergies and Home Medications Allergies Coded Allergies: acetaminophen (Verified Allergy, Mild, Rash, 11/24/19) Home Medications Cefdinir 300 Mg Capsule, 300 MG PO BID Prescribed by: GONZALO RAY on 11/26/19 1016 Hydrocodone/Acetaminophen 1 Each Tablet, 1 TAB PO Q6H PRN for PAIN-MODERATE (5- 7) Prescribed by: JANET LUTZ on 01/25/21 2240 Nitrofurantoin Monohyd/M-Cryst 100 Mg Capsule, 1 TAB PO BID Prescribed by: CHARLIE COLLINS on 06/17/20 1618 Patient Home Medication List Home Medication List Reviewed: Yes Review of Systems Review of Systems Constitutional: No chills, No diaphoresis EENTM: No hearing loss, No ear pain Respiratory: No cough, No short of breath Cardiovascular: No chest pain, No palpitations Gastrointestinal: No abdominal pain, No nausea, No vomiting Genitourinary: see HPI; denies burning, denies discharge, denies dysuria Musculoskeletal: No back pain, No joint pain All Other Systemes Reviewed Negative Unless Noted: Yes Past Kygzsnt-Xzyewv-Fzufiq Hx Patient Social History Tobacco Use?: No Use of E-Cig and/or Vaping dev: No Substance use?: No Alcohol Use?: No Immunizations Up To Date Tetanus Booster (TDap): Less than 5yrs PED Vaccines UTD: Yes Seasonal Allergies Seasonal Allergies: No Past Medical History Surgeries: Yes (TEETH REMOVED) Respiratory: No Cardiac: No Neurological: Yes (SEIZURES PER PT--NO PHYSICAN DOCUMENTED SEIZURES) Seizure Disorder Reproductive Disorders: Yes (CHRONIC PELVIC PAIN ) Female Reproductive Disorders: Menstrual Problems, Pelvic Inflammatory Dis, Endometriosis Sexually Transmitted Disease: Yes (gonorrhea and Chlamydia) HIV/AIDS: No Genitourinary: Yes Bladder Infection Gastrointestinal: No Musculoskeletal: No Endocrine: Yes ("HYPOGLYCEMIC" PER PT) HEENT: No Cancer: No Psychosocial: Yes Depression Integumentary: No Blood Disorders: No Adverse Reaction/Blood Tranf: No Family Medical History No Pertinent Family Hx Physical Exam Vital Signs Vital Signs - First Documented 01/25/21 22:36 Pulse 124 Resp 18 B/P (MAP) 118/89 (99) Pulse Ox 99 O2 Delivery Room Air Capillary Refill : Height, Weight, BMI Height: 5'6.00" Weight: 128lbs. 0.0oz. 58.263018yb; 22.00 BMI Method:Stated General Appearance: WD/WN, mild distress HEENT: PERRL/EOMI, pharynx normal Neck: full range of motion, normal inspection Cardiovascular: normal peripheral pulses, regular rate, rhythm Respiratory: lungs clear, normal breath sounds, no respiratory distress, no accessory muscle use Gastrointestinal: normal bowel sounds, soft, other (Gravid) Progress/Results/Core Measures Suspected Sepsis SIRS Temperature: Pulse: Respiratory Rate: Laboratory Tests 01/25/21 21:35: White Blood Count 6.4 Blood Pressure / Mean: Laboratory Tests 01/25/21 21:35: Creatinine 0.72, Platelet Count 199, Total Bilirubin 0.2 Results/Orders Lab Results Laboratory Tests Test 01/25/21 21:35 Range/Units White Blood Count 6.4 4.3-11.0 10^3/uL Red Blood Count 4.03 3.80-5.11 10^6/uL Hemoglobin 12.3 11.5-16.0 g/dL Hematocrit 37 35-52 % Mean Corpuscular Volume 92 80-99 fL Mean Corpuscular Hemoglobin 31 25-34 pg Mean Corpuscular Hemoglobin Concent 33 32-36 g/dL Red Cell Distribution Width 12.9 10.0-14.5 % Platelet Count 199 130-400 10^3/uL Mean Platelet Volume 10.7 9.0-12.2 fL Immature Granulocyte % (Auto) 0 % Neutrophils (%) (Auto) 53 42-75 % Lymphocytes (%) (Auto) 41 12-44 % Monocytes (%) (Auto) 6 0-12 % Eosinophils (%) (Auto) 1 0-10 % Basophils (%) (Auto) 0 0-10 % Neutrophils # (Auto) 3.4 1.8-7.8 10^3/uL Lymphocytes # (Auto) 2.6 1.0-4.0 10^3/uL Monocytes # (Auto) 0.4 0.0-1.0 10^3/uL Eosinophils # (Auto) 0.0 0.0-0.3 10^3/uL Basophils # (Auto) 0.0 0.0-0.1 10^3/uL Immature Granulocyte # (Auto) 0.0 0.0-0.1 10^3/uL Sodium Level 141 135-145 MMOL/L Potassium Level 3.8 3.6-5.0 MMOL/L Chloride Level 109 H 98-107 MMOL/L Carbon Dioxide Level 23 21-32 MMOL/L Anion Gap 9 5-14 MMOL/L Blood Urea Nitrogen 10 7-18 MG/DL Creatinine 0.72 0.60-1.30 MG/DL Estimat Glomerular Filtration Rate > 60 BUN/Creatinine Ratio 14 Glucose Level 98 70-105 MG/DL Calcium Level 8.3 L 8.5-10.1 MG/DL Corrected Calcium 8.6 8.5-10.1 MG/DL Total Bilirubin 0.2 0.1-1.0 MG/DL Aspartate Amino Transf (AST/SGOT) 17 5-34 U/L Alanine Aminotransferase (ALT/SGPT) 18 0-55 U/L Alkaline Phosphatase 58 40-136 U/L Total Protein 6.4 6.4-8.2 GM/DL Albumin 3.6 3.2-4.5 GM/DL Human Chorionic Gonadotropin, Quant 585 H <5 MIU/ML My Orders Orders - JANET LUTZ Lactated Ringers (Lr 1000 Ml Iv Solution (01/25/21 21:45) Ed Iv/Invasive Line Start (01/25/21 21:36) Cbc With Automated Diff (01/25/21 21:36) Comprehensive Metabolic Panel (01/25/21 21:36) Ua Culture If Indicated (01/25/21 21:36) Drug Screen Stat (Urine) (01/25/21 22:02) Hcg,Quantitative (01/25/21 22:43) Medications Given in ED Current Medications Medications Dose Ordered Sig/Jaziel Route Start Time Stop Time Status Last Admin Dose Admin Lactated Ringer's 1,000 ml @ 0 mls/hr Q0M ONCE IV 01/25/21 21:45 01/25/21 21:46 DC 01/25/21 22:16 0 MLS/HR Vital Signs/I&O 01/25/21 22:36 Pulse 124 Resp 18 B/P (MAP) 118/89 (99) Pulse Ox 99 O2 Delivery Room Air Capillary Refill : Progress Note : Time: 22:32 Progress Note Patient is continue to have pressure and cramping. We discussed the case with Dr. Gray her OB versus follow her up in the clinic. Go home and miscarriage to completion. Hemoglobin is okay. Waiting on type and screen but she says she is A positive so I do not anticipate having to give her RhoGam based on that result. Ultrasound is unavailable at this time. Departure Impression Primary Impression: Incomplete miscarriage with blood clot Disposition: HOME, SELF-CARE Condition: Stable Departure-Patient Inst. Decision time for Depature: 22:37 Referrals: TORI GRAY MD ,LOCAL PHYSICIAN (PCP) Primary Care Physician Patient Instructions: Miscarriage (DC) Add. Discharge Instructions: Expect to have similar symptoms to when you delivered your pregnancies. You will have cramping low pelvis pain passing of blood clots and eventually tissue. Please review the handout on what to expect with miscarriage. Return to the ER for intractable pain despite Tylenol and ibuprofen. Hydrocodone 1 tablet every 6 hours as necessary for severe intractable pain. Drink plenty of fluids. Follow-up next week with your OB provider. If you are having chest pain, shortness of air or other worrisome symptoms then return to the ER for further evaluation. All discharge instructions reviewed with patient and/or family. Voiced understanding. Scripts Hydrocodone/Acetaminophen (Hydrocodone-Acetamin 5-325 mg) 1 Each Tablet 1 TAB PO Q6H PRN for PAIN-MODERATE (5-7), #12 TAB 0 Refills Prov: JANET LUTZ 01/25/21 Work/School Note: Work Release Form Date Seen in the Emergency Department: Jan 25, 2021 Return to Work: Jan 30, 2021 Restrictions: No Restrictions Copy Copies To 1: MARINATORI WHITEHEAD MD, TITUS J Jan 25, 2021 22:25
[2021-01-25] MEDS ORDERED: ACHD5005 PO (22:39)
[2021-01-25 23:20] VITALS: BP 113/84
== END 2021-01-25 23:21 | disposition home or self-care (01) ==
LOC: EDUNIT# 21:10 → ER 21:13
DX: O03.4 Incomplete spontaneous abortion without complication (principal)
CPT/HCPCS: 36415; 80053; 84702; 85025

== ENCOUNTER 2021-10-30 21:56 | Observation (INO) | payer MEDICAID ==
[~2021-10-30] VITALS: Ht 170.2 cm; Wt 75.3 kg
[~2021-10-30 21:56] MED LIST changes: +CLIN-144 PO; -CLIN150C18 PO; +CLIN150C20 PO; -CLIN300C12 PO; +CYCL10TA25 PO
[2021-10-30 22:00] VITALS: BP 119/69
[2021-10-30 22:25] LABS: BILIRUBIN,URINE NEGATIVE (NEGATIVE); CLARITY,URINE SL CLOUDY; COLOR,URINE YELLOW; GLUCOSE, URINE (UA) NEGATIVE (NEGATIVE); KETONES,URINE NEGATIVE (NEGATIVE); LEUKOCYTE ESTERASE ,URINE 2+ (NEGATIVE); NITRITE,URINE POSITIVE (NEGATIVE); PH,URINE 6.5 (5-9); PROTEIN,URINE 1+ (NEGATIVE)
[2021-10-30 22:33] LABS: BACTERIA,URINE MODERATE /HPF; SQUAMOUS EPITHELIAL CELL,UR 0-2 /HPF
[2021-10-30] MEDS ORDERED: LACTATED RINGERS 1,000 ML IV SCH (23:00)
[2021-10-30] MEDS ORDERED: ZOLPIDEM 5 MG (AMBIEN) TAB PO PRN (23:00)
[2021-10-30] MEDS ORDERED: ceFAZolin INJECTION 1,000 MG ONE (23:01)
[2021-10-30] MEDS ORDERED: LACTATED RINGERS 1,000 ML IV ONE (23:02)
[2021-10-30] MEDS: ceFAZolin INJECTION 1,000 MG VIAL IV SCH (23:10)
[2021-10-31] MEDS ORDERED: NICOTINE 21 MG (NICODERM) PATCH TD ONE (01:30)
--- NOTE | 2021-10-31 07:21 | History & Physical ---
HPI History of Present Illness: 31-year-old presents to women services during the evening of October 30, 2021 with reported right-sided back pain. She is also in second trimester . She denies any fever. She is currently homeless but does live with her boyfriend at one of his friends houses. She does go to [facility] for her OB care and has been seen once. She does admit to occasional uterine cramp. Source: patient Exam Limitations: no limitations Date seen by provider: Oct 31, 2021 Time Seen by Provider: 07:00 Attending Physician Tori Gray MD PCP Tori Gray MD Consult Date of Admission Oct 30, 2021 at 22:51 Home Medications Home Medications Reviewed patient Home Medication Reconciliation performed by pharmacy medication reconciliations audio visual technician and/or nursing. Patients Allergies have been reviewed. Allergies Coded Allergies: acetaminophen (Verified Allergy, Mild, Rash, 11/24/19) KQI-Zuyeqh-Nahsmv Hx Patient Social History Marrital Status: cohabiting Employed/Student: unemployed Drug of Choice: marijuana, METH (IV) Smoking Status: Current Everyday Smoker 2nd Hand Smoke Exposure: Yes Recent Hopitalizations: No Immunizations Up To Date Tetanus Booster (TDap): Less than 5yrs Past Medical History no chronic medical problems Family Medical History Significant Family History: No Pertinent Family Hx Review of Systems ([facility]) Constitutional: see HPI Reviewed Test Results Reviewed Test Results Lab Laboratory Tests Test 10/30/21 22:00 Range/Units Urine Color YELLOW Urine Clarity SL CLOUDY Urine pH 6.5 5-9 Urine Specific [place] 1.025 H 1.016-1.022 Urine Protein 1+ H NEGATIVE Urine Glucose (UA) NEGATIVE NEGATIVE Urine Ketones NEGATIVE NEGATIVE Urine Nitrite POSITIVE H NEGATIVE Urine Bilirubin NEGATIVE NEGATIVE Urine Urobilinogen 2.0 < = 1.0 MG/DL Urine Leukocyte Esterase 2+ H NEGATIVE Urine RBC (Auto) 1+ H NEGATIVE Urine RBC 2-5 H /HPF Urine WBC 10-25 H /HPF Urine Squamous Epithelial Cells 0-2 /HPF Urine Crystals NONE /LPF Urine Bacteria MODERATE H /HPF Urine Casts NONE /LPF Urine Mucus NEGATIVE /LPF Urine Culture Indicated YES Physical Exam-([facility]) Physical Exam Vital Signs VS - Last 72 Hours, by Label 10/30/21 10/30/21 10/30/21 10/31/21 22:00 22:00 22:00 09:00 Temp 36.2 36.2 36.0 Pulse 102 102 97 Resp 20 20 18 B/P (MAP) 117/65 (82) Pulse Ox 100 100 100 98 O2 Delivery Room Air Room Air Room Air Room Air Capillary Refill : Less Than 3 Seconds General Appearance: mild distress (Primarily with movement) Respiratory: lungs clear Cardiovascular: regular rate, rhythm Back: no CVA tenderness (And her tenderness is lower more at the lumbar back region on the right) Neurologic/Psychiatric: alert, oriented x 3 Assessment/Plan Assessment/Plan Admission Dx 1. Urinary tract infection with possible right-sided pyelonephritis on admission 2. in second trimester Admission Status: Observation Reason for Inpatient Admission: IV fluids and IV antibiotics Assessment & Plan 1. Urinary tract infection with possible right-sided pyelonephritis on admission -She was started on Ancef 1 g every 8 hours IV -IV fluids lactated Ringer's at 125 cc/h 2. in second trimester TORI GRAY MD Oct 31, 2021 07:21
[2021-10-31] MEDS ORDERED: NS (IVPB) 0 ML ONE (07:36)
[2021-10-31] MEDS: ceFAZolin INJECTION 1,000 MG VIAL IV SCH (07:39)
[2021-10-31 09:00] VITALS: BP 117/65
== END 2021-10-31 10:55 | disposition home or self-care (01) ==
LOC: LDRP 21:56 → WSo 21:56 → LDRP 22:51 → EEVIPCON 22:51
PROVIDERS: ADMIT Family Medicine; ATTEND Family Medicine
DX: O23.42 Unspecified infection of urinary tract in pregnancy, second trimester (principal); N39.0 Urinary tract infection, site not specified; O26.892 Other specified pregnancy related conditions, second trimester; M54.9 Dorsalgia, unspecified; O99.332 Smoking (tobacco) complicating pregnancy, second trimester; Z59.00 Homelessness unspecified
CPT/HCPCS: 81000; 87077; 87088; 87186; 96361 ×2; 96374; 96376; G0378; G0379

== ENCOUNTER 2021-11-21 14:13 | Outpatient (CLI) | payer MEDICAID ==
[~2021-11-21] VITALS: Ht 167.7 cm; Wt 78.0 kg
[2021-11-21 14:56] VITALS: BP 127/85
[2021-11-21 17:27] LABS: BILIRUBIN,URINE NEGATIVE (NEGATIVE); CLARITY,URINE CLEAR; COLOR,URINE YELLOW; GLUCOSE, URINE (UA) NEGATIVE (NEGATIVE); KETONES,URINE TRACE (NEGATIVE); LEUKOCYTE ESTERASE ,URINE 3+ (NEGATIVE); NITRITE,URINE POSITIVE (NEGATIVE); PROTEIN,URINE TRACE (NEGATIVE)
[2021-11-21 17:34] LABS: BACTERIA,URINE LARGE /HPF; RBC,URINE 0-2 /HPF; SQUAMOUS EPITHELIAL CELL,UR 0-2 /HPF; WBC,URINE 50-100 /HPF
[2021-11-21 18:00] LABS: AMPHETAMINE SCREEN, URINE POSITIVE (NEGATIVE); BARBITURATE SCREEN URINE NEGATIVE (NEGATIVE); BENZODIAZEPINES SCREEN URINE NEGATIVE (NEGATIVE); CANNABINOID SCREEN, URINE NEGATIVE (NEGATIVE); COCAINE SCREEN URINE NEGATIVE (NEGATIVE); METHADONE STAT NEGATIVE (NEGATIVE); OPIATE SCREEN URINE NEGATIVE (NEGATIVE); OXYCODONE STAT NEGATIVE (NEGATIVE); PROPOXYPHENE STAT NEGATIVE (NEGATIVE); TRICYCLIC ANTIDEPRESSANTS SCRE NEGATIVE (NEGATIVE)
[2021-11-21] MEDS ORDERED: CEPH500T PO (18:11)
--- NOTE | 2021-11-22 08:02 | Physician Query-Final Dx ---
Clinic Account Progress/Dx Physician Query: Please give diagnosis Please include # weeks gestation Date of Service November 21, 2021 at 14:13 ,JulNovember 22, 2021 08:02
== END 2021-11-21 18:42 | disposition home or self-care (01) ==
LOC: WSo 14:13 → LDRP 14:13 → WSo 18:42
PROVIDERS: ATTEND Family Medicine
DX: O62.9 Abnormality of forces of labor, unspecified (principal); Z3A.33 33 weeks gestation of pregnancy
CPT/HCPCS: 80306; 81000; 84112; 87077; 87088; 87186; G0463; 99214

== ENCOUNTER 2021-12-23 00:38 | Outpatient (CLI) | payer MEDICAID ==
[~2021-12-23] VITALS: Ht 170 cm; Wt 77.6 kg
[~2021-12-23 00:38] MED LIST changes: +CEPH500T PO
[2021-12-23 01:34] VITALS: BP 133/85
[2021-12-23 02:32] VITALS: BP 133/85
--- NOTE | 2021-12-24 08:29 | Physician Query-Final Dx ---
Clinic Account Progress/Dx Physician Query: Please give diagnosis Please include # weeks gestation Date of Service Dec 23, 2021 at 00:38 COOKIE,JulDec 24, 2021 08:29
== END 2021-12-23 02:32 ==
LOC: WSo 00:38 → LDRP 00:39 → WSo 02:32
PROVIDERS: ATTEND Family Medicine
DX: O42.913 Preterm premature rupture of membranes, unspecified as to length of time between rupture and onset of labor, third trimester (principal); O62.9 Abnormality of forces of labor, unspecified; Z3A.36 36 weeks gestation of pregnancy
CPT/HCPCS: 84112; G0463; 99214

== ENCOUNTER 2021-12-28 18:07 | Outpatient (CLI) | payer MEDICAID ==
[~2021-12-28] VITALS: Ht 167.7 cm; Wt 79.2 kg
[2021-12-28] VITALS (16 sets, daily range): BP systolic 121–154; BP diastolic 86–99
[2021-12-28] MEDS ORDERED: PREN-37 PO (18:24)
[2021-12-28] MEDS ORDERED: FAMO-129 PO (18:24)
[2021-12-28 19:23] LABS: BASOPHILS # (AUTO) 0.1 10^3/uL (0.0-0.1); BASOPHILS % (AUTO) 0 % (0-10); EOSINOPHILS # (AUTO) 0.1 10^3/uL (0.0-0.3); EOSINOPHILS % (AUTO) 0 % (0-10); HEMATOCRIT 34 % (35-52); HEMOGLOBIN 10.8 g/dL (11.5-16.0); LYMPHOCYTES # (AUTO) 3.1 10^3/uL (1.0-4.0); LYMPHOCYTES % (AUTO) 15 % (12-44); MEAN CORPUSCULAR HEMOGLOBIN 28 pg (25-34); MEAN CORPUSCULAR HGB CONC 32 g/dL (32-36); MEAN CORPUSCULAR VOLUME 87 fL (80-99); MEAN PLATELET VOLUME 11.5 fL (9.0-12.2); MONOCYTES # (AUTO) 0.6 10^3/uL (0.0-1.0); MONOCYTES % (AUTO) 3 % (0-12); NEUTROPHILS # (AUTO) 16.3 10^3/uL (1.8-7.8); NEUTROPHILS % (AUTO) 80 % (42-75); PLATELET COUNT 525 10^3/uL (130-400); WHITE BLOOD COUNT 20.4 10^3/uL (4.3-11.0)
[2021-12-28 19:36] LABS: ALBUMIN 3.2 GM/DL (3.2-4.5); POTASSIUM 4.4 MMOL/L (3.6-5.0)
[2021-12-28 19:37] LABS: CALCIUM 9.1 MG/DL (8.5-10.1)
[2021-12-28 19:39] LABS: TOTAL PROTEIN 7.1 GM/DL (6.4-8.2)
[2021-12-28 19:40] LABS: BILIRUBIN,TOTAL 0.3 MG/DL (0.1-1.0)
[2021-12-28 19:42] LABS: CREATININE SERUM 0.73 MG/DL (0.60-1.30)
[2021-12-28 19:45] LABS: URIC ACID 5.2 MG/DL (2.6-7.2)
[2021-12-28 20:11] LABS: EOSINOPHILS % (MANUAL) 1 %; LYMPHOCYTES % (MANUAL) 21 %; MONOCYTES % (MANUAL) 1 %; NEUTROPHILS % (MANUAL) 77 %; RBC MORPH NORMAL
[2021-12-28] MEDS ORDERED: LACTATED RINGERS 1,000 ML IV ONE (20:51)
[2021-12-28] MEDS: LACTATED RINGERS 1,000 ML IV SCH (20:58)
[2021-12-29] VITALS (9 sets, daily range): BP systolic 109–149; BP diastolic 52–94
[2021-12-29] MEDS: LACTATED RINGERS 1,000 ML IV SCH (04:56)
[2021-12-29 05:51] LABS: BASOPHILS # (AUTO) 0.1 10^3/uL (0.0-0.1); BASOPHILS % (AUTO) 1 % (0-10); EOSINOPHILS # (AUTO) 0.2 10^3/uL (0.0-0.3); EOSINOPHILS % (AUTO) 1 % (0-10); HEMATOCRIT 31 % (35-52); HEMOGLOBIN 10.4 g/dL (11.5-16.0); LYMPHOCYTES # (AUTO) 3.6 10^3/uL (1.0-4.0); LYMPHOCYTES % (AUTO) 20 % (12-44); MEAN CORPUSCULAR HEMOGLOBIN 28 pg (25-34); MEAN CORPUSCULAR HGB CONC 33 g/dL (32-36); MEAN CORPUSCULAR VOLUME 86 fL (80-99); MEAN PLATELET VOLUME 11.5 fL (9.0-12.2); MONOCYTES # (AUTO) 0.9 10^3/uL (0.0-1.0); MONOCYTES % (AUTO) 5 % (0-12); NEUTROPHILS # (AUTO) 12.8 10^3/uL (1.8-7.8); NEUTROPHILS % (AUTO) 72 % (42-75); PLATELET COUNT 479 10^3/uL (130-400); WHITE BLOOD COUNT 17.7 10^3/uL (4.3-11.0)
[2021-12-29 06:04] LABS: ALBUMIN 2.8 GM/DL (3.2-4.5)
[2021-12-29 06:05] LABS: POTASSIUM 3.9 MMOL/L (3.6-5.0)
[2021-12-29 06:06] LABS: CALCIUM 8.7 MG/DL (8.5-10.1)
[2021-12-29 06:07] LABS: TOTAL PROTEIN 6.4 GM/DL (6.4-8.2)
[2021-12-29 06:09] LABS: BILIRUBIN,TOTAL 0.2 MG/DL (0.1-1.0)
[2021-12-29 06:11] LABS: CREATININE SERUM 0.64 MG/DL (0.60-1.30)
[2021-12-29 06:14] LABS: URIC ACID 4.8 MG/DL (2.6-7.2)
--- NOTE | 2021-12-29 10:21 | Discharge Summary ---
Discharge Inst-[facility] Discharge Medications Continued Medications: Famotidine (Heartburn Prevention) 10 Mg Tablet 10 MG PO, TAB Vit/Iron Fumarate/FA ( Tablet) 27 Mg Iron-800 Mcg Tablet 1 EACH PO, TAB Patient Instructions Goal/Follow Up Appt: Go to [facility] tomorrow (12/30/21) for a blood pressure check. Call if you have persistent decreased movement so an ultrasound can be ordered. Follow up with Dr. Simental on Thursday as scheduled for your appointment. Return to The Hospital For: Headache, blurry vision, spots in vision, chest pain, shortness of breath, upper abdominal pain, worsening swelling, decreased movement, vaginal bleeding, fever, leaking fluid. Activity & Diet Discharge Diet: No Restrictions Activity as Tolerated: Yes ALFREDITO MENDEZ MD Dec 29, 2021 10:21
--- NOTE | 2021-12-29 10:25 | Short Stay Summary ---
RADHA JORDAN 12/29/21 1025: HPI History of Present Illness: 31 year old ,0,1,4 female currently 37w3d gestation presented to the hospital yesterday for concerns of decreased movement. She reports she hadn't felt the baby move since Thursday. She denies LOF, Vaginal bleeding, or vaginal discharge. She has been having yanick-lopez contractions with occasional stronger contractions. She denies abdominal pain otherwise. She has had some nausea for the past week. She denies fevers, shortness of breath, or chest pain. She reports uneventful up to this point. Date seen by provider: Dec 29, 2021 Time Seen by Provider: 09:45 Attending Physician Tapan Simental MD PCP Admitting Physician: Attending Physician: Alfredito Mendez MD Consult Date of Admission Home Medications Home Medications Reviewed patient Home Medication Reconciliation performed by pharmacy medication reconciliations investment recovery technician and/or nursing. Patients Allergies have been reviewed. Allergies Coded Allergies: acetaminophen (Verified Allergy, Mild, Rash, 11/24/19) XNP-Jkgpey-Scyzav Hx Patient Social History Drug of Choice: marijuana, METH (IV) Smoking Status: Current Everyday Smoker 2nd Hand Smoke Exposure: No Recent Hopitalizations: No Alcohol Use?: No Substance type: Nicotine, Marijuana Have you traveled recently?: No Immunizations Up To Date Tetanus Booster (TDap): Less than 5yrs Past Medical History no chronic medical problems Family Medical History Significant Family History: No Pertinent Family Hx Review of Systems (CHC) Constitutional: No chills, No fever EENTM: No hearing loss, No vision loss Respiratory: No cough, No short of breath Cardiovascular: No chest pain, No edema, No palpitations Gastrointestinal: No RUQ; nausea (1 week duration); No vomiting; other (Yanick lopez contractions with rare stronger contractions) Genitourinary: No dysuria; frequency (normal); No hematuria : Yes Expected Date of Delivery: Jan 16, 2022 Skin: lesions; No rash Psychiatric/Neurological: Headache (One headache in the past week); Denies Nu mbness, Denies Seizure Physical Exam-([facility]) Physical Exam Vital Signs VS - Last 72 Hours, by Label 12/28/21 12/28/21 12/28/21 12/28/21 18:25 18:25 18:40 19:00 Temp 36.3 36.3 Pulse 92 90 88 77 Resp 18 18 18 18 B/P (MAP) 140/90 (107) 135/91 (106) Pulse Ox 98 99 98 O2 Delivery Room Air Room Air Room Air Room Air 12/28/21 12/28/21 12/28/21 12/28/21 19:20 19:40 20:00 20:20 Temp 36.6 Pulse 80 69 80 85 Resp 18 18 18 18 B/P (MAP) 139/93 (108) 146/87 (106) 121/87 (98) 141/99 (113) O2 Delivery Room Air Room Air Room Air Room Air 12/28/21 12/28/21 12/28/21 12/28/21 20:40 21:00 21:20 21:40 Pulse 86 75 85 84 Resp 18 18 18 18 B/P (MAP) 135/93 (107) 136/88 (104) 131/86 (101) 154/88 (110) O2 Delivery Room Air Room Air Room Air Room Air 12/28/21 12/28/21 12/28/21 12/28/21 22:00 22:20 22:40 23:30 Temp 36.4 Pulse 78 82 78 80 Resp 18 18 18 18 B/P (MAP) 141/93 (109) 134/91 (105) 143/94 (110) 133/92 (106) O2 Delivery Room Air Room Air Room Air Room Air 12/29/21 12/29/21 12/29/21 12/29/21 00:15 01:10 01:45 02:30 Pulse 80 68 70 70 Resp 18 18 18 18 B/P (MAP) 141/94 (110) 149/84 (105) 129/87 (101) 136/79 (98) O2 Delivery Room Air Room Air Room Air Room Air 12/29/21 12/29/21 12/29/21 12/29/21 03:15 04:00 04:45 05:30 Pulse 67 77 74 76 Resp 18 18 18 18 B/P (MAP) 126/60 (82) 143/92 (109) 109/52 (71) 119/66 (83) O2 Delivery Room Air Room Air Room Air Room Air 12/29/21 06:15 Temp 36.3 Pulse 71 Resp 18 B/P (MAP) 127/84 (98) O2 Delivery Room Air Capillary Refill : Less Than 3 Seconds General Appearance: WD/WN, no apparent distress Eyes: Bilateral Eye PERRL, Bilateral Eye EOMI HEENT: PERRL/EOMI, pharynx normal Neck: non-tender, supple; No lymphadenopathy (R), No lymphadenopathy (L), No thyromegaly Respiratory: lungs clear, normal breath sounds, no accessory muscle use Cardiovascular: regular rate, rhythm, no edema, no murmur Peripheral Pulses: 2+ Dorsalis Pedis (R), 2+ Left Dors-Pedis (L), 2+ Radial Pulses (R), 2+ Radial Pulses (L) Gastrointestinal: normal bowel sounds, non tender, other (Firm, rounded abdomen consistent with ) Extremities: non-tender, no pedal edema, no calf tenderness Neurologic/Psychiatric: no motor/sensory deficits, normal mood/affect, oriented x 3 Reflexes: 2+ Ankle (R), 2+ Ankle (L) Skin: normal color, warm/dry Short Stay Diagnosis Discharge Diagnosis-Short Stay Admission Diagnosis Decreased movement Final Discharge Diagnosis -Decreased movement -Gestational Hypertension -Leukocytosis Conclusion Plan Summary Upon presenting to the hospital, vitals were obtained as was blood and urine samples for assessment. Patients BP on admission was 140/90 and she continued to have elevated systolic and/or diastolic BP's for greater than 4 hours apart before eventually lowering to a more normal range by time of discharge. Initial bloodwork revealed leukocytosis with WBC of 20.4 on admission. When paired with decreased movement this was concerning for possible infection and warranted overnight stay to monitor patient for acute decompensation. Labwork this morning revealed WBC had improved to 17.7 and when paired with urinalysis findings revealed no source of infection or signs of end-organ damage. Urine protein to creatinine ratio was 0.26. Her heart tracing upon admission and during the course of her stay was category 1. During her stay the patient appeared comfortable and in no distress to the nursing staff and slept well through the night. She reports felling baby move since admission to the hospital. 1.) Decreased Movement -Patient maintained a heart tracing of category 1 during her stay and began to feel baby move. Category 1 tracing is very reassuring and doesn't warrant further monitoring in an in-patient setting at this time. Recommend patient take time each day to focus on feeling for movement during a time when it is normally active. She should 10 movements in a 2 hour period when doing this. If she experiences another extended period of decreased movement then she should make contact with her PCP or come straight to the hospital again for further assessment 2.) Gestational Hypertension -Patient meets criteria for gestational hypertension based on BP's during her stay. Her urine protein to creatinine ratio of 0.26 and lack of end organ dysfunction per labwork does not meet diagnostic criteria for pre-eclampsia making induction at this time unnecessary. She had 24 hr urine sample started during her stay and is being sent home with instructions on how to finish the collection. She has follow up appointment with Dr. Simental on Thursday and recommend she go by [facility] tomorrow to have her BP taken in an outpatient setting prior to the appointment. In the meantime will inform him of today's visit. Treatment of BP with medication is not necessary at this time. 3.) Leukocytosis -Although physiologic leukocytosis is normal in a WBC of 20.4 upon admission in unison with decreased movement was concerning that patient may have chorioamnionitis or other source of infection brewing. WBC improved by this morning however, and tracing was category 1 making it unlikely to be due to chorioamnionitis. Blood and urine samples showed no other obvious source of infection and vitals were stable during her stay. Recommended she pay attention closely for signs of infection including fever, tachycardia, or hypotension and have PCP follow in an outpatient setting. Assessment/Plan Assessment/Plan Admission Dx Decreased movement Assessment & Plan Decreased movement -external monitor to obtain heart tracing and look for alarming indications for induction -Cervical check to assess dilation and effacement -CBC, CMP, Urinalysis, 24hr urine sample, Urine protein to creatinine ratio, and vitals. -1L LR bolus with Maintenance fluid at 125ml/hr ALFREDITO MENDEZ MD 12/30/212035: Home Medications Allergies Coded Allergies: acetaminophen (Verified Allergy, Mild, Rash, 11/24/19) Physical Exam-([facility]) Physical Exam General Appearance: WD/WN, no apparent distress Cardiovascular: regular rate, rhythm, no edema, no murmur Neurologic/Psychiatric: alert, normal mood/affect Skin: normal color, warm/dry Supervisory-Addendum Brief Verification & Attestation Participated in pt care: history, MDM, physical Personally performed: exam, history, MDM, supervision of care Care discussed with: Medical Student Procedures: n/a Results interpretation: Verified all documentation I personally saw and examined patient and did my own history and exam (see my exam section for my physical evaluation). I directed the plan of care as documented by the medical student. RADHA JORDAN Dec 29, 2021 10:25 ALFREDITO MENDEZ MD Dec 30, 2021 20:36
[2021-12-29 11:23] LABS: AMPHETAMINE SCREEN, URINE NEGATIVE (NEGATIVE); BARBITURATE SCREEN URINE NEGATIVE (NEGATIVE); BENZODIAZEPINES SCREEN URINE NEGATIVE (NEGATIVE); CANNABINOID SCREEN, URINE POSITIVE (NEGATIVE); COCAINE SCREEN URINE NEGATIVE (NEGATIVE); METHADONE STAT NEGATIVE (NEGATIVE); OPIATE SCREEN URINE NEGATIVE (NEGATIVE); OXYCODONE STAT NEGATIVE (NEGATIVE); PROPOXYPHENE STAT NEGATIVE (NEGATIVE); TRICYCLIC ANTIDEPRESSANTS SCRE NEGATIVE (NEGATIVE)
== END 2021-12-29 10:48 | disposition home or self-care (01) ==
LOC: WSo 18:07 → LDRP 18:07 → WSo 12-29 10:48
PROVIDERS: ATTEND Family Medicine
DX: O36.8130 Decreased fetal movements, third trimester, not applicable or unspecified (principal); Z3A.36 36 weeks gestation of pregnancy
CPT/HCPCS: 36415; 80053; 80306; 82570; 83615; 84156; 84550; 85007; 85025; 85027; 96360; 96361

== ENCOUNTER 2021-12-31 05:37 | Outpatient (CLI) | payer MEDICAID ==
[~2021-12-31] VITALS: Ht 167.7 cm; Wt 79.2 kg
[~2021-12-31 05:37] MED LIST changes: +FAMO-129 PO
[2021-12-31 06:05] VITALS: BP 121/80
[2021-12-31 06:10] VITALS: BP 121/80
[2021-12-31 06:15] VITALS: BP 121/80
--- NOTE | 2022-01-03 08:17 | Physician Query-Final Dx ---
Clinic Account Progress/Dx Physician Query: Please give diagnosis Please include # weeks gestation Date of Service Dec 31, 2021 at 05:37 COOKIE,JulJan 03, 2022 08:17
== END 2021-12-31 06:30 | disposition home or self-care (01) ==
LOC: WSo 05:37 → LDRP 05:41 → WSo 06:30
PROVIDERS: ATTEND Family Medicine
DX: O62.9 Abnormality of forces of labor, unspecified (principal); O42.92 Full-term premature rupture of membranes, unspecified as to length of time between rupture and onset of labor; Z3A.37 37 weeks gestation of pregnancy
CPT/HCPCS: 84112; 99213

== ENCOUNTER 2022-01-09 05:42 | Inpatient (IN) | payer MEDICAID ==
[~2022-01-09] VITALS: Ht 167.7 cm; Wt 80.0 kg
[2022-01-09] VITALS (28 sets, daily range): BP systolic 107–182; BP diastolic 60–93
[2022-01-09] MEDS ORDERED: AMPICILLIN FOR IV USE 2,000 MG in NS (IVPB) 50 ML IV SCH (05:52)
[2022-01-09] MEDS ORDERED: CATHETER FLUSH 10 ML SYR IV SCH ×2 (06:00→14:00)
[2022-01-09] MEDS ORDERED: MINERAL OIL 30 ML TOP PRN (06:00)
[2022-01-09] MEDS ORDERED: D5 LR IV SOLUTION 1,000 ML IV SCH (06:00)
[2022-01-09] MEDS ORDERED: MEPIVACAINE (CARBOCAINE) 2% 50 ML VIAL INJ PRN (06:00)
[2022-01-09] MEDS ORDERED: WATER (STERILE) FOR INJECTION 20 ML ONE (06:10)
[2022-01-09] MEDS ORDERED: AMPICILLIN 2,000 MG/14.8 ML (IV USE) ONE (06:10)
[2022-01-09] MEDS ORDERED: D5 LR IV SOLUTION 1,000 ML IV ONE (06:10)
[2022-01-09 06:23] LABS: BASOPHILS # (AUTO) 0.1 10^3/uL (0.0-0.1); BASOPHILS % (AUTO) 0 % (0-10); EOSINOPHILS # (AUTO) 0.1 10^3/uL (0.0-0.3); EOSINOPHILS % (AUTO) 1 % (0-10); HEMATOCRIT 31 % (35-52); HEMOGLOBIN 10.6 g/dL (11.5-16.0); LYMPHOCYTES # (AUTO) 3.9 10^3/uL (1.0-4.0); LYMPHOCYTES % (AUTO) 18 % (12-44); MEAN CORPUSCULAR HEMOGLOBIN 28 pg (25-34); MEAN CORPUSCULAR HGB CONC 35 g/dL (32-36); MEAN CORPUSCULAR VOLUME 80 fL (80-99); MEAN PLATELET VOLUME 11.6 fL (9.0-12.2); MONOCYTES # (AUTO) 0.8 10^3/uL (0.0-1.0); MONOCYTES % (AUTO) 4 % (0-12); NEUTROPHILS # (AUTO) 16.4 10^3/uL (1.8-7.8); NEUTROPHILS % (AUTO) 77 % (42-75); PLATELET COUNT 411 10^3/uL (130-400); WHITE BLOOD COUNT 21.5 10^3/uL (4.3-11.0)
--- NOTE | 2022-01-09 07:21 | History & Physical-OB ---
OB - Chief Complaint & HPI Date/Time Date of Admission: Date of Admission: Jan 09, 2022 at 05:42 Date seen by a Provider: Jan 09, 2022 Time Seen by a Provider: 06:30 Chief Complaint/History OB-Reason for Admission/Chief: Induction of Labor Expected Date of Delivery: Jan 16, 2022 Gestational Age in Weeks: 39 Gestational Age in Days: 0 Admission Nurse Assessment Rev: Yes History of Labs GBS positive Allergies and Home Medications Allergies Coded Allergies: acetaminophen (Verified Allergy, Mild, Rash, 11/24/19) Patient Home Medication List Home Medication List Reviewed: Yes Famotidine (Heartburn Prevention) 10 Mg Tablet, 10 MG PO, (Reported) Entered as Reported by: MANUEL KEARNEY on 12/28/211823 Last Action: Reviewed Vit/Iron Fumarate/FA ( Tablet) 27 Mg Iron-800 Mcg Tablet, 1 EACH PO, (Reported) Entered as Reported by: MANUEL KEARNEY on 12/28/211823 Last Action: Reviewed OB - History Hx of Present Care: Yes Ultrasounds: Normal mid trimester US Obstetrical Complications: None Medical Complications: None Obstetrical History Hx Termination: No Hx Complication: No Delivery History Hx Blood Disorders: No Adverse Rxn to Tranfusion: No Patient Past Medical History no chronic medical problems Social History/Family History 2nd Hand Smoke Exposure: No Immunizations Hepatitis A: No Hepatitis B: No Tetanus Booster (TDap): Less than 5yrs Date of Pneumonia Vaccine: Apr 12, 2013 OB - Admission Exam Physical Exam Vitals: Vital Signs 01/09/22 01/09/22 05:59 06:13 Temp 36.4 Pulse 98 Resp 18 B/P (MAP) 129/82 (98) Pulse Ox 100 O2 Delivery Room Air HEENT: Moist Membranes Heart: Rhythm Normal Lungs: Clear Abdomen: Gravid Cervical Dilatation: 4cm Effacement: 75% Station: -3 Membranes: Intact Heart Rate: 140's Accelerations: Accelerations Present Decelerations: No Decelerations Short Term Variability: Present Residential Variability: Average (6-25) Contractions on Admission: 6-10 Minutes Apart Intensity: Mild Vergara Scoring Tool (Modified) Dilation (cm): 3-4cm (2) Effacement (%): 51-79% (2) Descent/Station: -3 (0) Cervix Consistency: Medium(1) Cervix Position: Middle/Mid-Position (1) Add 1 point for: Each previous vaginal delivery (1) Labs Laboratory Tests Test 01/09/22 05:55 Range/Units White Blood Count 21.5 H 4.3-11.0 10^3/uL Red Blood Count 3.82 3.80-5.11 10^6/uL Hemoglobin 10.6 L 11.5-16.0 g/dL Hematocrit 31 L 35-52 % Mean Corpuscular Volume 80 80-99 fL Mean Corpuscular Hemoglobin 28 25-34 pg Mean Corpuscular Hemoglobin Concent 35 32-36 g/dL Red Cell Distribution Width 13.8 10.0-14.5 % Platelet Count 411 H 130-400 10^3/uL Mean Platelet Volume 11.6 9.0-12.2 fL Immature Granulocyte % (Auto) 1 % Neutrophils (%) (Auto) 77 H 42-75 % Lymphocytes (%) (Auto) 18 12-44 % Monocytes (%) (Auto) 4 0-12 % Eosinophils (%) (Auto) 1 0-10 % Basophils (%) (Auto) 0 0-10 % Neutrophils # (Auto) 16.4 H 1.8-7.8 10^3/uL Lymphocytes # (Auto) 3.9 1.0-4.0 10^3/uL Monocytes # (Auto) 0.8 0.0-1.0 10^3/uL Eosinophils # (Auto) 0.1 0.0-0.3 10^3/uL Basophils # (Auto) 0.1 0.0-0.1 10^3/uL Immature Granulocyte # (Auto) 0.1 0.0-0.1 10^3/uL OB - Assessment/Plan/Diagnosis Assessment Assessment: induction of labor (at 39 weeks gestation) Admission Dx 1. Intrauterine at 39 weeks 0 days gestation Admission Status: Inpatient Order (span 2 midnights) Reason for Inpatient Admission: induction of labor Plan Plan: Induction Induction Method: AROM Other Plan -Pitocin if necessary -At this time she does not desire epidural TORI GRAY MD Jan 09, 2022 07:21
[2022-01-09] MEDS ORDERED: OXYTOCIN PRE-MIX DRIP 500 ML IV SCH ×2 (07:30→13:15)
[2022-01-09 08:40] LABS: BILIRUBIN,URINE NEGATIVE (NEGATIVE); CLARITY,URINE CLEAR; COLOR,URINE YELLOW; GLUCOSE, URINE (UA) NEGATIVE (NEGATIVE); KETONES,URINE NEGATIVE (NEGATIVE); LEUKOCYTE ESTERASE ,URINE TRACE (NEGATIVE); NITRITE,URINE NEGATIVE (NEGATIVE); PROTEIN,URINE NEGATIVE (NEGATIVE)
[2022-01-09 08:46] LABS: BACTERIA,URINE TRACE /HPF; SQUAMOUS EPITHELIAL CELL,UR 0-2 /HPF; WBC,URINE 0-2 /HPF
[2022-01-09] MEDS ORDERED: ONDANSETRON 4 MG/2 ML (SDV) Z0FRAN ONE (09:08)
[2022-01-09] MEDS ORDERED: ONDANSETRON 4 MG/2 ML (SDV) Z0FRAN IVP ONE (09:15)
[2022-01-09 09:20] LABS: AMPHETAMINE SCREEN, URINE NEGATIVE (NEGATIVE); BARBITURATE SCREEN URINE NEGATIVE (NEGATIVE); BENZODIAZEPINES SCREEN URINE NEGATIVE (NEGATIVE); CANNABINOID SCREEN, URINE NEGATIVE (NEGATIVE); COCAINE SCREEN URINE NEGATIVE (NEGATIVE); METHADONE STAT NEGATIVE (NEGATIVE); OPIATE SCREEN URINE NEGATIVE (NEGATIVE); OXYCODONE STAT NEGATIVE (NEGATIVE); PROPOXYPHENE STAT NEGATIVE (NEGATIVE); TRICYCLIC ANTIDEPRESSANTS SCRE NEGATIVE (NEGATIVE)
[2022-01-09] MEDS ORDERED: AMPICILLIN FOR IV USE 1,000 MG in NS (IVPB) 50 ML IV SCH (10:00)
--- NOTE | 2022-01-09 13:11 | OB Labor & Delivery Record ---
L&D History Date of Service Date of Service: Jan 09, 2022 History Expected Date of Delivery: Jan 16, 2022 Gestational Age in Weeks: 39 Hx : 5 Hx Para: 5 Complications Events: Routine care Operative Indications (Cesarea: N/A-Vaginal Delivery Intrapartal Events: None Other Complications GBS positive treated with ampicillin protochol L&D Stage1 Stage One Onset of Labor - Date: Jan 09, 2022 Onset of Labor - Time: 06:31 Monitors and Tracing Monitor Mode: Internal Heart Rate: 120 Monitor Accelerations: Uniform Monitor Decelerations: None Station: -3 Halfway Variability: Average (6-10) Short Term Variability: Present Presentation: Vertex Vital Signs VS - Last 72 Hours, by Label 01/09/22 01/09/22 01/09/22 01/09/22 05:59 06:13 07:45 08:00 Temp 36.4 36.4 36.2 Pulse 98 98 88 77 Resp 18 18 18 18 B/P (MAP) 129/82 (98) 132/84 (100) 125/80 (95) Pulse Ox 100 100 O2 Delivery Room Air Room Air Room Air Room Air 01/09/22 01/09/22 01/09/22 01/09/22 08:15 08:30 08:45 09:00 Pulse 89 78 77 73 Resp 18 18 18 18 B/P (MAP) 133/83 (100) 132/77 (95) 107/60 (76) 124/70 (88) O2 Delivery Room Air Room Air Room Air Room Air 01/09/22 01/09/22 01/09/22 01/09/22 09:15 09:30 09:45 10:00 Temp 36.6 Pulse 76 77 73 82 Resp 18 18 18 18 B/P (MAP) 136/88 (104) 133/77 (95) 129/83 (98) 130/93 (105) O2 Delivery Room Air Room Air Room Air Room Air 01/09/22 01/09/22 01/09/22 01/09/22 10:15 10:30 10:45 11:00 Pulse 82 82 79 90 Resp 18 18 18 18 B/P (MAP) 131/80 (97) 135/73 (93) 140/89 (106) 177/85 (115) O2 Delivery Room Air Room Air Room Air Room Air 01/09/22 01/09/22 01/09/22 01/09/22 11:15 11:30 11:45 12:00 Temp 36.4 Pulse 81 71 80 90 Resp 18 18 18 18 B/P (MAP) 141/85 (103) 182/87 (118) 135/82 (99) 148/91 (110) O2 Delivery Room Air Room Air Room Air Room Air 01/09/22 01/09/22 01/09/22 12:12 12:27 12:42 Temp 36.7 Pulse 83 86 82 Resp 18 18 18 B/P (MAP) 154/90 (111) 141/89 (106) 144/77 (99) O2 Delivery Room Air Room Air Room Air Signs of Distress by FHT Signs of Distress no Rupture of Membranes Spontaneous Ruture of Membrane: No Amniotic Membrane Rupture Time: 630 Amniotic Membrane Fluid Desc.: Clear L&D Stage2 Stage Two Stage II Date: Jan 09, 2022 Stage II Time: 12:05 Monitors and Tracing Monitor Mode: Internal Heart Rate: 120 Monitor Accelerations: Uniform Monitor Decelerations: None Halfway Variability: Average (6-10) Short Term Variability: Present Position: Left Occiput Anterior Presentation: Vertex Signs of Distress by FHT Signs of Distress no Cord Descript/Complications Cord Vessel Description: 3 Vessels Delivery Type Infant Delivery Method: Spontaneous Vaginal Anterior Shoulder: Left Episiotomy/Perineal Laceration Laceraction(s)/Extensions: No Condition of Infant Delivery 1 minute Comment: 8 5 minute Comment: 9 Condition of Condition of : Living Exam: No Observed Abnormalities Resuscitation Resuscitation: N/A - Spontaneous Resp L&D Stage3 Stage Three Stage III Date: Jan 09, 2022 Stage III Time: 12:10 Pictocin Pitocin Administration mu/min: 8 Pitocin ml/hr: 8 Pitocin Administration Comment: 1015 pitocin increased Placenta Delivery Placenta Delivery: Spontaneous Delivery Summary Summary Estimated blood loss (mL): 150 Condition of Delivery Examined: Cervix Examined Post Hemorrhage: No Intervention Required none TORI GRAY MD Jan 09, 2022 13:10
[2022-01-09] MEDS ORDERED: TETANUS,DIPTH,PERTUSS P/F (BOOSTRIX) 0.5 ML VIAL IM ONE (13:15)
[2022-01-09] MEDS ORDERED: MEASLES,MUMPS,RUBELLA 1 EA INJ SQ ONE (13:15)
[2022-01-09] MEDS ORDERED: BENZOCAINE/MENTHOL (DERMOPLAST) 56 ML CAN TP PRN (13:15)
[2022-01-09] MEDS ORDERED: WITCH HAZEL(TUCKS) 40 EA JAR TOP PRN (13:15)
[2022-01-09] MEDS ORDERED: NALOXONE 0.4 MG/ML 1 ML (NARCAN) VIAL IV PRN (13:15)
[2022-01-09] MEDS: IBUPROFEN 600 MG (MOTRIN) TAB PO SCH ×2 (14:05→20:46)
[2022-01-09] MEDS ORDERED: ACETAMINOPHEN 500 MG TAB (TYLENOL) PO SCH (18:00)
[2022-01-09] MEDS: DOCUSATE SODIUM 100 MG (COLACE) CAP PO SCH (20:46)
[2022-01-10 00:09] VITALS: BP 138/86
[2022-01-10] MEDS: IBUPROFEN 600 MG (MOTRIN) TAB PO SCH ×2 (02:00→09:39)
[2022-01-10 03:25] VITALS: BP 112/63
[2022-01-10 05:34] LABS: BASOPHILS # (AUTO) 0.1 10^3/uL (0.0-0.1); BASOPHILS % (AUTO) 1 % (0-10); EOSINOPHILS # (AUTO) 0.1 10^3/uL (0.0-0.3); EOSINOPHILS % (AUTO) 0 % (0-10); HEMATOCRIT 32 % (35-52); HEMOGLOBIN 10.2 g/dL (11.5-16.0); LYMPHOCYTES # (AUTO) 3.9 10^3/uL (1.0-4.0); LYMPHOCYTES % (AUTO) 21 % (12-44); MEAN CORPUSCULAR HEMOGLOBIN 28 pg (25-34); MEAN CORPUSCULAR HGB CONC 32 g/dL (32-36); MEAN CORPUSCULAR VOLUME 86 fL (80-99); MEAN PLATELET VOLUME 11.8 fL (9.0-12.2); MONOCYTES # (AUTO) 0.9 10^3/uL (0.0-1.0); MONOCYTES % (AUTO) 5 % (0-12); NEUTROPHILS # (AUTO) 13.7 10^3/uL (1.8-7.8); NEUTROPHILS % (AUTO) 73 % (42-75); PLATELET COUNT 375 10^3/uL (130-400); WHITE BLOOD COUNT 18.8 10^3/uL (4.3-11.0)
--- NOTE | 2022-01-10 08:20 | Discharge Summary ---
Diagnosis/Chief Complaint Date of Admission Jan 09, 2022 at 05:42 Date of Discharge January 10, 2022 Admission Diagnosis Admission Diagnosis 1. Intrauterine at 39 weeks gestation 2. Maternal methamphetamine on urine Spot check Discharge Diagnosis 1. Intrauterine at 39 weeks gestation 2. Maternal methamphetamine on urine Spot check Chief Complaint/HPI Chief Complaint/HPI 31-year-old 5 now term 5 L5 who initially presented to labor and delivery during the morning of January 09, 2022 for induction of labor at 39 weeks gestation. Her care was essentially unremarkable. Over the past [address] [facility] her methamphetamine on urine spot check has been negative. She was induced at 39 weeks at her request. Her EDC is January 15, 2022. GBS status was noted to be positive at 36 weeks gestation Discharge Summary-OBS Procedures 1. Spontaneous vaginal delivery Discharge Physical Examination Allergies: Coded Allergies: acetaminophen (Verified Allergy, Mild, Rash, 11/24/19) Vitals & I&Os l Intake and Output 01/10/22 00:00 Intake Total 850 ml Balance 850 ml Vital Sign - Last 12Hours Date Time Temp Pulse Resp B/P (MAP) Pulse Ox O2 Delivery O2 Flow Rate FiO2 01/10/22 03:25 36.2 93 18 112/63 (79) 99 Room Air General Appearance: Alert, No Acute Distress Respiratory: Clear to Auscultation Cardiovascular: Regular Rate Abdominal: Soft (with uterus firm) Hospital Course Was the Problem List Reviewed?: Yes patient was admitted to women's services in the morning of January 09, 2022 for induction of labor. She underwent amniotomy with placement of scalp electrode. Fluid was noted to be clear at that time. She record Pitocin augmentation to achieve adequate contractions. Ultimately she did go on to completion and delivered over an intact perineum a term viable female. Delivery was accomplished early afternoon see labor and delivery note for full details. Following delivery she underwent routine care orders. She had no complications during the remainder of hospital stay. Her hemoglobin in the morning of January was noted to be 10.2 compared to admission of 10.6. She had no complaints of chest pain or shortness of breath there was no reported leg pain. She tolerated regular diet. She will be ready for dismissal during the early afternoon of January 10, 2022. Labs Laboratory Tests 01/09/22 08:30: Urine Opiates Screen NEGATIVE, Urine Oxycodone Screen NEGATIVE, Urine Methadone Screen NEGATIVE, Urine Propoxyphene Screen NEGATIVE, Urine Barbiturates Screen NEGATIVE, Ur Tricyclic Antidepressants Screen NEGATIVE, Urine Phencyclidine Screen NEGATIVE, Urine Amphetamines Screen NEGATIVE, Urine Methamphetamines Screen POSITIVEH, Urine Benzodiazepines Screen NEGATIVE, Urine Cocaine Screen NEGATIVE, Urine Cannabinoids Screen NEGATIVE 01/10/22 04:58: White Blood Count 18.8H, Red Blood Count 3.69L, Hemoglobin 10.2L, Hematocrit 32L , Mean Corpuscular Volume 86, Mean Corpuscular Hemoglobin 28, Mean Corpuscular Hemoglobin Concent 32, Red Cell Distribution Width 14.1, Platelet Count 375, Mean Platelet Volume 11.8, Immature Granulocyte % (Auto) 1, Neutrophils (%) (Auto) 73, Lymphocytes (%) (Auto) 21, Monocytes (%) (Auto) 5, Eosinophils (%) (Auto) 0, Basophils (%) (Auto) 1, Neutrophils # (Auto) 13.7H, Lymphocytes # (Auto) 3.9, Monocytes # (Auto) 0.9, Eosinophils # (Auto) 0.1, Basophils # (Auto) 0.1, Immature Granulocyte # (Auto) 0.2H Discharge Instructions to patient/family Please see electronic discharge instructions given to patient. Discharge Medications Reviewed and agree with Discharge Medication list on patient's Discharge Instruction sheet TORI GRAY MD Jan 10, 2022 08:20
--- NOTE | 2022-01-10 08:22 | Discharge Inst-Women's Service ---
Discharge Inst-Women's Serv Depart Medication/Instructions New, Converted or Re-Newed RX: Other Instructions you may take ibuprofen [id number] 2 or 3 tablets every 6 hours if needed for cramps. Problems Reviewed?: Yes Consults/Follow Up Additional Follow Up: Yes (with Dr. Gray in 6 weeks.) Activity Activity: Activity as Tolerated Driving Instructions: No Driving for 1 Week Nothing Inside Vagina: No [place] (for 6 weeks) Diet Discharge Diet: Regular Diet Return to The Hospital For: as below Symptoms to Report to : Bleeding Excessive, Fever Over 101 Degrees F, Vaginal Discharge Foul For Any Problems or Questions: Contact Your Physician TORI GRAY MD Jan 10, 2022 08:22
[2022-01-10] MEDS: DOCUSATE SODIUM 100 MG (COLACE) CAP PO SCH (09:38)
[2022-01-10 09:50] VITALS: BP 121/69
== END 2022-01-10 17:15 | disposition home or self-care (01) | DRG 807 ==
LOC: LDRP 05:42 → WS 08:35 → LDRP 08:35
PROVIDERS: ADMIT Family Medicine; ATTEND Family Medicine
PROC: 10E0XZZ Delivery of Products of Conception, External Approach (ICD-10-PCS; principal; 2022-01-09)
PROC: 10907ZC Drainage of Amniotic Fluid, Therapeutic from Products of Conception, Via Natural or Artificial Opening (ICD-10-PCS; 2022-01-09)
PROC: 3E033VJ Introduction of Other Hormone into Peripheral Vein, Percutaneous Approach (ICD-10-PCS; 2022-01-09)
DX: O99.824 Streptococcus B carrier state complicating childbirth (principal); Z37.0 Single live birth; Z3A.39 39 weeks gestation of pregnancy
CPT/HCPCS: 36415; 80306; 81000; 85025; 86850; 86900; 86901

== ENCOUNTER 2022-02-22 13:22 | Emergency (ER) | payer MEDICAID ==
[~2022-02-22] VITALS: Ht 167.7 cm; Wt 73.9 kg
[2022-02-22 13:49] LABS: BASOPHILS # (AUTO) 0.1 10^3/uL (0.0-0.1); BASOPHILS % (AUTO) 1 % (0-10); EOSINOPHILS # (AUTO) 0.1 10^3/uL (0.0-0.3); EOSINOPHILS % (AUTO) 1 % (0-10); HEMATOCRIT 43 % (35-52); HEMOGLOBIN 13.8 g/dL (11.5-16.0); LYMPHOCYTES % (AUTO) 20 % (12-44); MEAN CORPUSCULAR HEMOGLOBIN 27 pg (25-34); MEAN CORPUSCULAR HGB CONC 32 g/dL (32-36); MEAN CORPUSCULAR VOLUME 85 fL (80-99); MEAN PLATELET VOLUME 10.6 fL (9.0-12.2); MONOCYTES # (AUTO) 0.6 10^3/uL (0.0-1.0); MONOCYTES % (AUTO) 4 % (0-12); NEUTROPHILS # (AUTO) 11.1 10^3/uL (1.8-7.8); NEUTROPHILS % (AUTO) 74 % (42-75); PLATELET COUNT 406 10^3/uL (130-400); WHITE BLOOD COUNT 14.9 10^3/uL (4.3-11.0)
[2022-02-22 13:52] LABS: ALBUMIN 4.4 GM/DL (3.2-4.5)
[2022-02-22 13:53] LABS: CALCIUM 10.3 MG/DL (8.5-10.1)
[2022-02-22 13:54] LABS: PROTHROMBIN TIME PATIENT 13.1 SEC (12.2-14.7); TOTAL PROTEIN 7.9 GM/DL (6.4-8.2)
[2022-02-22 13:56] LABS: BILIRUBIN,TOTAL 0.5 MG/DL (0.1-1.0)
[2022-02-22 13:58] LABS: CREATININE SERUM 1.01 MG/DL (0.60-1.30)
[2022-02-22 14:01] LABS: MAGNESIUM 1.8 MG/DL (1.6-2.4)
[2022-02-22 14:12] LABS: ANISOCYTOSIS SLIGHT; EOSINOPHILS % (MANUAL) 1 %; HYPOCHROMASIA SLIGHT; LYMPHOCYTES % (MANUAL) 23 %; MICROCYTOSIS SLIGHT; MONOCYTES % (MANUAL) 4 %; NEUTROPHILS % (MANUAL) 72 %
[2022-02-22] MEDS ORDERED: KETOROLAC 30 MG/ML VIAL IVP ONE (14:30)
[2022-02-22 14:43] LABS: AMPHETAMINE SCREEN, URINE NEGATIVE (NEGATIVE); BARBITURATE SCREEN URINE NEGATIVE (NEGATIVE); BENZODIAZEPINES SCREEN URINE NEGATIVE (NEGATIVE); CANNABINOID SCREEN, URINE NEGATIVE (NEGATIVE); COCAINE SCREEN URINE NEGATIVE (NEGATIVE); METHADONE STAT NEGATIVE (NEGATIVE); OPIATE SCREEN URINE NEGATIVE (NEGATIVE); OXYCODONE STAT NEGATIVE (NEGATIVE); PROPOXYPHENE STAT NEGATIVE (NEGATIVE); TRICYCLIC ANTIDEPRESSANTS SCRE NEGATIVE (NEGATIVE)
--- NOTE | 2022-02-22 15:18 | Diagnostic Imaging Report ---
EXAMINATION: Chest, one view. HISTORY: Chest pain. COMPARISON: 04/01/2020. FINDINGS: The lungs are clear without edema or pneumonia. No pleural effusion or pneumothorax. Heart size is normal. IMPRESSION: 1. Clear lungs. Dictated by: Dictated on workstation # [id number]
--- NOTE | 2022-02-22 16:08 | ED Chest Pain ---
General Chief Complaint: Chest Pain Stated Complaint: CHEST PAIN Nursing Triage Note: PT TO ROOM 06 VIA [facility] WITH C/O CHEST PAIN WITH LEFT ARM NUMBNESS X3 DAYS. PT STATES SHE HAS BEEN UNABLE TO SLEEP DUE TO PAIN. Source: patient Exam Limitations: no limitations History of Present Illness Date Seen by Provider: Feb 22, 2022 Time Seen by Provider: 13:29 Initial Comments This 31-year-old young lady presents to the emergency room via EMS with complaints of chest pain in the mid chest that shoots down her left arm. Left arm sometimes becomes numb. She also has had some shortness of breath. Chest is tender to palpation. It hurts worse with lying down. She has had some sweats. EMS gave aspirin 324 mg. They report her blood sugar was 53 at [facility] but EMS reported it as 80. Chest pain has been present for 4 days. Patient reports being clean from substance abuse for 72 days. She does report a known COVID exposure. Dr. Navid Pandey is her primary care provider. Allergies and Home Medications Allergies Coded Allergies: acetaminophen (Verified Allergy, Mild, Rash, 11/24/19) Patient Home Medication List Home Medication List Reviewed: Yes Famotidine (Heartburn Prevention) 10 Mg Tablet, 10 MG PO, (Reported) Entered as Reported by: MANUEL KEARNEY on 12/28/211823 Vit/Iron Fumarate/FA ( Tablet) 27 Mg Iron-800 Mcg Tablet, 1 EACH PO, (Reported) Entered as Reported by: MANUEL KEARNEY on 12/28/211823 Review of Systems Review of Systems Constitutional: no symptoms reported EENTM: No Symptoms Reported Respiratory: See HPI Cardiovascular: See HPI Gastrointestinal: No Symptoms Reported Genitourinary: No Symptoms Reported Musculoskeletal: see HPI Skin: no symptoms reported Psychiatric/Neurological: See HPI Endocrine: See HPI Hematologic/Lymphatic: No Symptoms Reported Past Icvzesw-Hkjrkp-Qfrypm Hx Patient Social History Tobacco Use?: Yes Tobacco type used: Cigarettes Smoking Status: Current Everyday Smoker Smokeless Tobacco Frequency: Never a User Use of E-Cig and/or Vaping dev: No Use of E-Cig and/or Vaping Javi: Never a User Substance use?: No Additional substance use comme: PT STATES 72 DAYS SINCE LAST METH USE. Alcohol Use?: No Pt feels they are or have been: No Immunizations Up To Date Tetanus Booster (TDap): Less than 5yrs PED Vaccines UTD: Yes Seasonal Allergies Seasonal Allergies: No Past Medical History Surgeries: Yes (TEETH REMOVED) Respiratory: No Cardiac: Yes Hypertension Neurological: Yes (SEIZURES PER PT--NO PHYSICAN DOCUMENTED SEIZURES) Seizure Disorder Reproductive Disorders: Yes (CHRONIC PELVIC PAIN ) Female Reproductive Disorders: Menstrual Problems, Pelvic Inflammatory Dis, Endometriosis Sexually Transmitted Disease: Yes (gonorrhea and Chlamydia) HIV/AIDS: No Genitourinary: Yes Bladder Infection Gastrointestinal: No Musculoskeletal: No Endocrine: Yes ("HYPOGLYCEMIC" PER PT) Diabetes, Non-Insulin dep HEENT: No Cancer: No Psychosocial: Yes (History of substance abuse, currently in recovery) Depression Integumentary: No Blood Disorders: No Adverse Reaction/Blood Tranf: No Family Medical History No Pertinent Family Hx Physical Exam Vital Signs Vital Signs - First Documented 02/22/22 13:22 Temp 36.5 Pulse 85 Resp 16 B/P (MAP) 110/78 (89) Pulse Ox 97 O2 Delivery Room Air Capillary Refill : Less Than 3 Seconds Height, Weight, BMI Height: 5'6.00" Weight: 128lbs. 0.0oz. 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, 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 Norm as Tested Skin: Normal Color, Warm/Dry Progress/Results/Core Measures Results/Orders Lab Results Laboratory Tests Test 02/22/22 13:20 02/22/22 14:19 02/22/22 14:20 Range/Units White Blood Count 14.9 H 4.3-11.0 10^3/uL Red Blood Count 5.06 3.80-5.11 10^6/uL Hemoglobin 13.8 11.5-16.0 g/dL Hematocrit 43 35-52 % Mean Corpuscular Volume 85 80-99 fL Mean Corpuscular Hemoglobin 27 25-34 pg Mean Corpuscular Hemoglobin Concent 32 32-36 g/dL Red Cell Distribution Width 16.4 H 10.0-14.5 % Platelet Count 406 H 130-400 10^3/uL Mean Platelet Volume 10.6 9.0-12.2 fL Immature Granulocyte % (Auto) 0 % Neutrophils (%) (Auto) 74 42-75 % Lymphocytes (%) (Auto) 20 12-44 % Monocytes (%) (Auto) 4 0-12 % Eosinophils (%) (Auto) 1 0-10 % Basophils (%) (Auto) 1 0-10 % Neutrophils # (Auto) 11.1 H 1.8-7.8 10^3/uL Lymphocytes # (Auto) 3.0 1.0-4.0 10^3/uL Monocytes # (Auto) 0.6 0.0-1.0 10^3/uL Eosinophils # (Auto) 0.1 0.0-0.3 10^3/uL Basophils # (Auto) 0.1 0.0-0.1 10^3/uL Immature Granulocyte # (Auto) 0.1 0.0-0.1 10^3/uL Neutrophils % (Manual) 72 % Lymphocytes % (Manual) 23 % Monocytes % (Manual) 4 % Eosinophils % (Manual) 1 % Hypochromasia SLIGHT Anisocytosis SLIGHT Microcytosis SLIGHT Prothrombin Time 13.1 12.2-14.7 SEC INR Comment 1.0 0.8-1.4 Activated Partial Thromboplast Time 31 24-35 SEC D-Dimer < 0.27 0.00-0.49 UG/ML Sodium Level 140 135-145 MMOL/L Potassium Level 4.0 3.6-5.0 MMOL/L Chloride Level 102 98-107 MMOL/L Carbon Dioxide Level 24 21-32 MMOL/L Anion Gap 14 5-14 MMOL/L Blood Urea Nitrogen 11 7-18 MG/DL Creatinine 1.01 0.60-1.30 MG/DL Estimat Glomerular Filtration Rate 77 BUN/Creatinine Ratio 11 Glucose Level 82 70-105 MG/DL Calcium Level 10.3 H 8.5-10.1 MG/DL Corrected Calcium 10.0 8.5-10.1 MG/DL Magnesium Level 1.8 1.6-2.4 MG/DL Total Bilirubin 0.5 0.1-1.0 MG/DL Aspartate Amino Transf (AST/SGOT) 17 5-34 U/L Alanine Aminotransferase (ALT/SGPT) 22 0-55 U/L Alkaline Phosphatase 76 40-136 U/L Myoglobin 30.6 10.0-92.0 NG/ML Troponin I < 0.028 <0.028 NG/ML C-Reactive Protein High Sensitivity 0.09 0.00-0.50 MG/DL Total Protein 7.9 6.4-8.2 GM/DL Albumin 4.4 3.2-4.5 GM/DL Serum Test, Qualitative NEGATIVE NEGATIVE Influenza Type A (RT-PCR) Not Detected Not Detecte Influenza Type B (RT-PCR) Not Detected Not Detecte SARS-CoV-2 RNA (RT-PCR) Not Detected Not Detecte Urine Opiates Screen NEGATIVE NEGATIVE Urine Oxycodone Screen NEGATIVE NEGATIVE Urine Methadone Screen NEGATIVE NEGATIVE Urine Propoxyphene Screen NEGATIVE NEGATIVE Urine Barbiturates Screen NEGATIVE NEGATIVE Ur Tricyclic Antidepressants Screen NEGATIVE NEGATIVE Urine Phencyclidine Screen NEGATIVE NEGATIVE Urine Amphetamines Screen NEGATIVE NEGATIVE Urine Methamphetamines Screen NEGATIVE NEGATIVE Urine Benzodiazepines Screen NEGATIVE NEGATIVE Urine Cocaine Screen NEGATIVE NEGATIVE Urine Cannabinoids Screen NEGATIVE NEGATIVE My Orders Orders - CARLA ETIENNE MD Ekg Tracing (02/22/22 13:26) Covid 19 Inhouse Test (02/22/22 13:37) Influenza A And B By Pcr (02/22/22 13:37) Cbc With Automated Diff (02/22/22 13:39) Magnesium (02/22/22 13:39) Chest 1 View, Ap/Pa Only (02/22/22 13:39) Comprehensive Metabolic Panel (02/22/22 13:39) Myoglobin Serum (02/22/22 13:39) Protime With Inr (02/22/22 13:39) Partial Thromboplastin Time (02/22/22 13:39) O2 (02/22/22 13:39) Monitor-Rhythm Ecg Trace Only (02/22/22 13:39) Ed Iv/Invasive Line Start (02/22/22 13:39) Fibrin Degradation Products (02/22/22 13:39) Troponin I Swisher (02/22/22 13:39) Hs C Reactive Protein (02/22/22 13:39) Drug Screen Stat (Urine) (02/22/22 13:41) Hcg,Qualitative Serum (02/22/22 13:41) Manual Differential (02/22/22 13:20) Ketorolac Injection (Toradol Injection) (02/22/22 14:30) Medications Given in ED Vital Signs/I&O 02/22/22 02/22/22 02/22/22 13:22 13:22 16:14 Temp 36.5 35.9 Pulse 85 80 Resp 16 15 B/P (MAP) 110/78 (89) 137/70 Pulse Ox 97 99 O2 Delivery Room Air Room Air Room Air Blood Pressure Mean: 89 Progress Progress Note : Progress Note Work-up was relatively unremarkable except for incidental leukocytosis. No evidence of infection otherwise was noted. Toradol was given with significant improvement. See discharge instructions for further discussion. Patient was congratulated on her clean drug screen and 72 days clean from substances. Initial ECG Impression Date: Feb 22, 2022 Initial ECG Impression Time: 13:29 Initial ECG Rate: 90 Initial ECG Rhythm: Normal Sinus Initial ECG Intervals: Normal Initial ECG Impression: Normal Comment Normal sinus rhythm with no ST elevation or depression. No abnormal intervals or axis deviation. Diagnostic Imaging Diagonstic Imaging: Xray Plain Films/CT/US/NM/MRI: chest Comments Chest x-ray viewed by me and report reviewed. See report below: NAME: SAMUEL MILLER [facility] REC#: [id number] PT STATUS: REG ER : 1990 PHYSICIAN: CARLA ETIENNE MD ADMIT DATE: 02/22/22/ER Signed Date of Exam:02/22/22 CHEST 1 VIEW, AP/PA ONLY EXAMINATION: Chest, one view. HISTORY: Chest pain. COMPARISON: 04/01/2020. FINDINGS: The lungs are clear without edema or pneumonia. No pleural effusion or pneumothorax. Heart size is normal. IMPRESSION: 1. Clear lungs. Dictated by: Dictated on workstation # [id number] Dict: 02/22/22 1511 Trans: 02/22/22 1519 [id number] Interpreted by: BEATRIZ PAULA MD Electronically signed by: BEATRIZ PAULA MD 02/22/22 1519 Departure Impression Primary Impression: Atypical chest pain Disposition: HOME, SELF-CARE Condition: Improved Departure-Patient Inst. Decision time for Depature: 16:06 Referrals: CRUZ PANDEY MD (PCP/Family) Primary Care Physician Patient Instructions: Chest Pain That Is Not Caused by the Heart (DC) Add. Discharge Instructions: You may take Tylenol up to 1000 mg every 6 hours as needed and/or ibuprofen up to 600 mg every 6 hours as needed for pain. Take ibuprofen with food or milk to avoid upsetting your stomach. Treatment with ibuprofen should gradually improve your pain over the next couple of days. If you are not improving over the next couple of days, please call your doctor Thursday morning for follow-up appointment. If your pain seems to be more in the stomach region or seems more similar to heartburn, you may try antacid medication such as Pepcid (famotidine) or omeprazole. Return to the ER if you have worsening symptoms despite following these instructions. All discharge instructions reviewed with patient and/or family. Voiced understanding. Work/School Note: Work Release Form Date Seen in the Emergency Department: Feb 22, 2022 Return to Work: Feb 23, 2022 Restrictions: No Restrictions Copy Copies To 1: NAVID PANDEY MD, JOSHUA T MD Feb 22, 2022 16:08
[2022-02-22 16:14] VITALS: BP 137/70
== END 2022-02-22 16:14 | disposition home or self-care (01) ==
LOC: EDUNIT# 13:22 → ER 13:23
DX: R07.89 Other chest pain (principal); D72.829 Elevated white blood cell count, unspecified; F17.210 Nicotine dependence, cigarettes, uncomplicated; Z20.822 Contact with and (suspected) exposure to COVID-19; Z28.310 Unvaccinated for COVID-19
CPT/HCPCS: 36415; 71045; 80053; 80306; 83735; 83874; 84484; 84703; 85007; 85027; 85379; 85610; 85730; 86141; 87636; 93005; 93041

== ENCOUNTER 2022-03-27 21:21 | Emergency (ER) | payer MEDICAID ==
[~2022-03-27] VITALS: Ht 167.7 cm; Wt 72.6 kg
[2022-03-27 21:36] VITALS: BP 121/75
[2022-03-27 21:55] LABS: BILIRUBIN,URINE NEGATIVE (NEGATIVE); CLARITY,URINE CLEAR; COLOR,URINE YELLOW; GLUCOSE, URINE (UA) NEGATIVE (NEGATIVE); KETONES,URINE NEGATIVE (NEGATIVE); LEUKOCYTE ESTERASE ,URINE TRACE (NEGATIVE); NITRITE,URINE NEGATIVE (NEGATIVE); PROTEIN,URINE NEGATIVE (NEGATIVE)
[2022-03-27 22:38] LABS: BACTERIA,URINE TRACE /HPF
[2022-03-27] MEDS ORDERED: ONDANSETRON 4 MG/2 ML (SDV) Z0FRAN IVP ONE (23:00)
[2022-03-27] MEDS ORDERED: ONDA4TAB11 SL (23:03)
--- NOTE | 2022-03-27 23:03 | ED Abdominal Pain ---
General Chief Complaint: Abdominal/GI Problems Stated Complaint: ABD PAIN Nursing Triage Note: PT AMBULATORY TO ROOM. STATES SHE HAS HAD UPPER ABD PAIN FOR TWO DAYS AND DIARRHEA/VOMITING SINCE LAST NIGHT. PT STATES THE PAIN "COMES AND GOES," HAS NOT TAKEN ANY PAIN MEDS AT HOME Source of Information: Patient Exam Limitations: No Limitations History of Present Illness Date Seen by Provider: Mar 27, 2022 Time Seen by Provider: 21:35 Initial Comments This 31-year-old woman presents to the emergency room with complaints of nausea, vomiting, diarrhea, and epigastric pain for 2 days. She has not had any vomiting in the emergency room. She has no fever. She is still taking an acid medication as prescribed during her most recent . Allergies and Home Medications Allergies Coded Allergies: acetaminophen (Verified Allergy, Mild, Rash, 11/24/19) Patient Home Medication List Home Medication List Reviewed: Yes Famotidine (Heartburn Prevention) 10 Mg Tablet, 10 MG PO, (Reported) Entered as Reported by: MANUEL KEARNEY on 12/28/211823 Ondansetron (Ondansetron Odt) 4 Mg Tab.rapdis, 4 MG SL Q4H PRN for NAUSEA/VOMITING Prescribed by: CARLA HAWK on 03/27/22 230 Vit/Iron Fumarate/FA ( Tablet) 27 Mg Iron-800 Mcg Tablet, 1 EACH PO, (Reported) Entered as Reported by: MANUEL KEARNEY on 12/28/211823 Review of Systems Review of Systems Constitutional: no symptoms reported EENTM: No Symptoms Reported Respiratory: No Symptoms Reported Cardiovascular: No Symptoms Reported Gastrointestinal: See HPI Genitourinary: No Symptoms Reported Musculoskeletal: no symptoms reported Skin: no symptoms reported Psychiatric/Neurological: No Symptoms Reported Endocrine: No Symptoms Reported Past [place]-Kgdmio Hx Patient Social History Tobacco Use?: Yes Tobacco type used: Cigarettes Smoking Status: Current Everyday Smoker Additional substance use comme: FORMER METH USE Alcohol Use?: No Immunizations Up To Date Tetanus Booster (TDap): Less than 5yrs PED Vaccines UTD: Yes Influenza Vaccine Up-to-Date: No; Not Current Seasonal Allergies Seasonal Allergies: No Past Medical History Surgeries: Yes (TEETH REMOVED) Respiratory: No Cardiac: Yes Hypertension Neurological: Yes (SEIZURES PER PT--NO PHYSICAN DOCUMENTED SEIZURES) Seizure Disorder Reproductive Disorders: Yes (CHRONIC PELVIC PAIN ) Female Reproductive Disorders: Menstrual Problems, Pelvic Inflammatory Dis, Endometriosis Sexually Transmitted Disease: Yes (gonorrhea and Chlamydia) HIV/AIDS: No Genitourinary: Yes Bladder Infection Gastrointestinal: No Musculoskeletal: No Endocrine: Yes ("HYPOGLYCEMIC" PER PT) Diabetes, Non-Insulin dep HEENT: No Cancer: No Psychosocial: Yes (History of substance abuse, currently in recovery) Depression Integumentary: No Blood Disorders: No Adverse Reaction/Blood Tranf: No Family Medical History No Pertinent Family Hx Physical Exam Vital Signs Vital Signs - First Documented 03/27/22 21:36 Temp 36.7 Pulse 79 Resp 26 B/P (MAP) 121/75 (90) Pulse Ox 100 Capillary Refill : Height/Weight/BMI Height: 5'6.00" Weight: 128lbs. 0.0oz. 58.322331bb; 25.00 BMI Method:Stated General Appearance: WD/WN, no apparent distress HEENT: normal ENT inspection Neck: normal inspection Respiratory: lungs clear, normal breath sounds, no respiratory distress Cardiovascular: regular rate, rhythm, no edema, no murmur Gastrointestinal: normal bowel sounds, soft; No distended; tenderness (Epigastrium only) Extremities: normal inspection, no pedal edema Neurologic/Psychiatric: no motor/sensory deficits, alert, normal mood/affect, oriented x 3 Skin: normal color, warm/dry Progress/Results/Core Measures Results/Orders Lab Results Laboratory Tests Test 03/27/22 21:43 03/27/22 21:47 Range/Units Urine Color YELLOW Urine Clarity CLEAR Urine pH 5.0 5-9 Urine Specific [place] 1.010 L 1.016-1.022 Urine Protein NEGATIVE NEGATIVE Urine Glucose (UA) NEGATIVE NEGATIVE Urine Ketones NEGATIVE NEGATIVE Urine Nitrite NEGATIVE NEGATIVE Urine Bilirubin NEGATIVE NEGATIVE Urine Urobilinogen 0.2 < = 1.0 MG/DL Urine Leukocyte Esterase TRACE H NEGATIVE Urine RBC (Auto) NEGATIVE NEGATIVE Urine RBC NONE /HPF Urine WBC 2-5 /HPF Urine Squamous Epithelial Cells 2-5 /HPF Urine Crystals NONE /LPF Urine Bacteria TRACE /HPF Urine Casts NONE /LPF Urine Mucus NEGATIVE /LPF Urine Culture Indicated NO White Blood Count 11.3 H 4.3-11.0 10^3/uL Red Blood Count 4.60 3.80-5.11 10^6/uL Hemoglobin 12.7 11.5-16.0 g/dL Hematocrit 40 35-52 % Mean Corpuscular Volume 86 80-99 fL Mean Corpuscular Hemoglobin 28 25-34 pg Mean Corpuscular Hemoglobin Concent 32 32-36 g/dL Red Cell Distribution Width 17.6 H 10.0-14.5 % Platelet Count 349 130-400 10^3/uL Mean Platelet Volume 11.4 9.0-12.2 fL Immature Granulocyte % (Auto) 0 % Neutrophils (%) (Auto) 55 42-75 % Lymphocytes (%) (Auto) 37 12-44 % Monocytes (%) (Auto) 6 0-12 % Eosinophils (%) (Auto) 1 0-10 % Basophils (%) (Auto) 1 0-10 % Neutrophils # (Auto) 6.3 1.8-7.8 10^3/uL Lymphocytes # (Auto) 4.2 H 1.0-4.0 10^3/uL Monocytes # (Auto) 0.6 0.0-1.0 10^3/uL Eosinophils # (Auto) 0.2 0.0-0.3 10^3/uL Basophils # (Auto) 0.1 0.0-0.1 10^3/uL Immature Granulocyte # (Auto) 0.0 0.0-0.1 10^3/uL Sodium Level 141 135-145 MMOL/L Potassium Level 3.9 3.6-5.0 MMOL/L Chloride Level 107 98-107 MMOL/L Carbon Dioxide Level 22 21-32 MMOL/L Anion Gap 12 5-14 MMOL/L Blood Urea Nitrogen 15 7-18 MG/DL Creatinine 0.89 0.60-1.30 MG/DL Estimat Glomerular Filtration Rate 90 BUN/Creatinine Ratio 17 Glucose Level 70 70-105 MG/DL Calcium Level 9.3 8.5-10.1 MG/DL Corrected Calcium 9.2 8.5-10.1 MG/DL Total Bilirubin 0.2 0.1-1.0 MG/DL Aspartate Amino Transf (AST/SGOT) 60 H 5-34 U/L Alanine Aminotransferase (ALT/SGPT) 50 0-55 U/L Alkaline Phosphatase 75 40-136 U/L C-Reactive Protein High Sensitivity 0.13 0.00-0.50 MG/DL Total Protein 7.1 6.4-8.2 GM/DL Albumin 4.1 3.2-4.5 GM/DL Lipase 62 8-78 U/L Serum Test, Qualitative NEGATIVE NEGATIVE My Orders Orders - CARLA ETIENNE MD Ua Culture If Indicated (03/27/22 21:35) Ondansetron Injection (Zofran Injectio (03/27/22 23:00) Cbc With Automated Diff (03/27/22 22:59) Comprehensive Metabolic Panel (03/27/22 22:59) Hs C Reactive Protein (03/27/22 22:59) Lipase (03/27/22 22:59) Ed Iv/Invasive Line Start (03/27/22 22:59) Hcg,Qualitative Serum (03/27/22 22:59) Medications Given in ED Current Medications Medications Dose Ordered Sig/Jaziel Route Start Time Stop Time Status Last Admin Dose Admin Ondansetron HCl 8 mg ONCE ONCE IVP 03/27/22 23:00 03/27/22 23:01 DC 03/27/22 23:02 8 MG Vital Signs/I&O 03/27/22 21:36 Temp 36.7 Pulse 79 Resp 26 B/P (MAP) 121/75 (90) Pulse Ox 100 Blood Pressure Mean: 90 Progress Progress Note : Progress Note Urinalysis was unremarkable. Patient insisted on leaving before labs were resulted as her ride was needing to depart. Labs were obtained. Phone number was confirmed so that any abnormal labs could be called to her. She was treated with Zofran prior to departure and instructed to follow-up with her doctor tomorrow. Labs were unremarkable as reviewed after patient's discharge. She remained stable throughout her ER stay and did not have any episodes of vomiting. Departure Impression Primary Impression: Epigastric pain Additional Impression: Nausea & vomiting Qualified Codes: R11.2 - Nausea with vomiting, unspecified Disposition: HOME, SELF-CARE Condition: Stable Departure-Patient Inst. Decision time for Depature: 23:01 Referrals: CRUZ PANDEY MD (PCP/Family) Primary Care Physician Patient Instructions: Abdominal Pain, Adult ED Add. Discharge Instructions: Start with a noncarbonated clear liquid diet and gradually advance your diet with small quantities of bland food as tolerated. Use the Zofran (ondansetron) as prescribed for nausea vomiting. Continue with your antiacid medication as previously prescribed. Follow-up on your lab results with your primary care provider tomorrow morning. Return to the ER if you have worsening symptoms despite following these instructions. All discharge instructions reviewed with patient and/or family. Voiced understanding. Scripts Ondansetron (Ondansetron Odt) 4 Mg Tab.rapdis 4 MG SL Q4H PRN for NAUSEA/VOMITING, #10 TAB Prov: CARLA ETIENNE MD 03/27/22 Copy Copies To 1: CRUZ PANDEY MD, JOSHUA T MD Mar 27, 2022 23:03
[2022-03-27 23:05] LABS: BASOPHILS # (AUTO) 0.1 10^3/uL (0.0-0.1); BASOPHILS % (AUTO) 1 % (0-10); EOSINOPHILS # (AUTO) 0.2 10^3/uL (0.0-0.3); EOSINOPHILS % (AUTO) 1 % (0-10); HEMATOCRIT 40 % (35-52); HEMOGLOBIN 12.7 g/dL (11.5-16.0); LYMPHOCYTES # (AUTO) 4.2 10^3/uL (1.0-4.0); LYMPHOCYTES % (AUTO) 37 % (12-44); MEAN CORPUSCULAR HEMOGLOBIN 28 pg (25-34); MEAN CORPUSCULAR HGB CONC 32 g/dL (32-36); MEAN CORPUSCULAR VOLUME 86 fL (80-99); MEAN PLATELET VOLUME 11.4 fL (9.0-12.2); MONOCYTES # (AUTO) 0.6 10^3/uL (0.0-1.0); MONOCYTES % (AUTO) 6 % (0-12); NEUTROPHILS # (AUTO) 6.3 10^3/uL (1.8-7.8); NEUTROPHILS % (AUTO) 55 % (42-75); PLATELET COUNT 349 10^3/uL (130-400); WHITE BLOOD COUNT 11.3 10^3/uL (4.3-11.0)
[2022-03-27 23:19] LABS: ALBUMIN 4.1 GM/DL (3.2-4.5); BILIRUBIN,TOTAL 0.2 MG/DL (0.1-1.0); CALCIUM 9.3 MG/DL (8.5-10.1); CREATININE SERUM 0.89 MG/DL (0.60-1.30); POTASSIUM 3.9 MMOL/L (3.6-5.0); TOTAL PROTEIN 7.1 GM/DL (6.4-8.2)
== END 2022-03-27 23:07 | disposition home or self-care (01) ==
LOC: EDUNIT# 21:21 → ER 21:23
DX: R10.13 Epigastric pain (principal); R11.2 Nausea with vomiting, unspecified; F17.210 Nicotine dependence, cigarettes, uncomplicated; Z28.310 Unvaccinated for COVID-19
CPT/HCPCS: 36415; 80053; 81000; 83690; 84703; 85025; 86141

== ENCOUNTER 2022-04-05 19:28 | Emergency (ER) | payer MEDICAID ==
[~2022-04-05] VITALS: Ht 167 cm; Wt 90.0 kg
[~2022-04-05 19:28] MED LIST changes: +ONDA4TAB11 SL
[2022-04-05] MEDS ORDERED: CEPH500T PO (19:53)
--- NOTE | 2022-04-05 19:53 | ED Integumentary General ---
General Stated Complaint: POSS SPIDER BITES ON LEGS Source: patient Exam Limitations: no limitations History of Present Illness Date Seen by Provider: Apr 05, 2022 Time Seen by Provider: 19:34 Initial Comments Patient to ER by private conveyance with 1 week of 2 small red spots on her left anterior thigh that have been a red itchy and little painful. She claims she dropped something out of them. She has been using antibacterial ointment with no success. No significant medical or surgical history. Allergies and Home Medications Allergies Coded Allergies: acetaminophen (Verified Allergy, Mild, Rash, 11/24/19) Patient Home Medication List Home Medication List Reviewed: Yes Famotidine (Heartburn Prevention) 10 Mg Tablet, 10 MG PO, (Reported) Entered as Reported by: MANUEL KEARNEY on 12/28/211823 Ondansetron (Ondansetron Odt) 4 Mg Tab.rapdis, 4 MG SL Q4H PRN for NAUSEA/VOMITING Prescribed by: CARLA HAWK on 03/27/222302 Vit/Iron Fumarate/FA ( Tablet) 27 Mg Iron-800 Mcg Tablet, 1 EACH PO, (Reported) Entered as Reported by: MANUEL KEARNEY on 12/28/211823 Review of Systems Review of Systems Constitutional: No chills, No diaphoresis EENTM: No ear discharge, No ear pain Respiratory: No cough, No short of breath Cardiovascular: No chest pain, No edema Gastrointestinal: No abdominal pain, No nausea, No vomiting All Other Systems Reviewed Negative Unless Noted: Yes Past Ormlyms-Xxjkme-Feorgx Hx Patient Social History Tobacco Use?: No Use of E-Cig and/or Vaping dev: No Substance use?: No Immunizations Up To Date Tetanus Booster (TDap): Less than 5yrs PED Vaccines UTD: Yes Seasonal Allergies Seasonal Allergies: No Past Medical History Surgeries: Yes (TEETH REMOVED) Respiratory: No Cardiac: Yes Hypertension Neurological: Yes (SEIZURES PER PT--NO PHYSICAN DOCUMENTED SEIZURES) Seizure Disorder Reproductive Disorders: Yes (CHRONIC PELVIC PAIN ) Female Reproductive Disorders: Menstrual Problems, Pelvic Inflammatory Dis, Endometriosis Sexually Transmitted Disease: Yes (gonorrhea and Chlamydia) HIV/AIDS: No Genitourinary: Yes Bladder Infection Gastrointestinal: No Musculoskeletal: No Endocrine: Yes ("HYPOGLYCEMIC" PER PT) Diabetes, Non-Insulin dep HEENT: No Cancer: No Psychosocial: Yes (History of substance abuse, currently in recovery) Depression Integumentary: No Blood Disorders: No Adverse Reaction/Blood Tranf: No Family Medical History No Pertinent Family Hx Physical Exam Vital Signs Capillary Refill : General Appearance: WD/WN, no apparent distress HEENT: PERRL/EOMI, normal ENT inspection Neck: full range of motion, normal inspection Cardiovascular: normal peripheral pulses, regular rate, rhythm Skin: other (2 small 1.2 cm diameter round red well-demarcated rashes with scaly raised edges. A little bit of broken skin from excoriations. Both are on anterior left thigh mid shaft.) Progress/Results/Core Measures Progress Progress Note : Time: 19:51 Progress Note The lesions look like ringworm. The excoriations have likely led to a secondary bacterial inclusion. We will put her on cephalexin for a week and then have her start treating it with antifungal topicals. Departure Impression Primary Impression: Cellulitis Qualified Codes: L03.116 - Cellulitis of left lower limb Additional Impression: Ringworm Disposition: HOME, SELF-CARE Condition: Stable Departure-Patient Inst. Decision time for Depature: 19:52 Referrals: CRUZ PANDEY MD (PCP/Family) Primary Care Physician Patient Instructions: Ringworm, Athlete's Foot, and Jock Itch, Cellulitis (Skin Infection), Adult (DC) Add. Discharge Instructions: The lesions look like ringworm. The skin has broken down in some places and perhaps a bacterial infection has gotten there. Start taking Keflex 4 times a day for a week to get rid of the bacterial infection. In the next week or 2 then you can start treating twice a day with an antifungal cream [id number] for 2 to 4 weeks to remove the underlying ringworm. Scripts Cephalexin (Cephalexin) 500 Mg Tablet 500 MG PO QID for 7 Days, #28 TAB 0 Refills Prov: JANET LUTZ 04/05/22 JANET LUTZ Apr 05, 2022 19:53
[2022-04-05 19:58] VITALS: BP 107/72
== END 2022-04-05 20:02 | disposition home or self-care (01) ==
LOC: EDUNIT# 19:28 → ER 19:30
DX: L03.116 Cellulitis of left lower limb (principal); B35.9 Dermatophytosis, unspecified
CPT/HCPCS: 99281

== ENCOUNTER 2022-10-24 09:39 | Emergency (ER) | payer MEDICAID ==
[~2022-10-24] VITALS: Ht 172 cm; Wt 80.0 kg
--- NOTE | 2022-10-24 09:57 | ED Neurological Problem ---
General Chief Complaint: Neurological Problems Stated Complaint: SEIZURES Nursing Triage Note: PT ARRIVED PER EMS PT HAS HAD APPROX 4 SEIZURES THIS AM, 1 SEIZURE FOR EMS. BY STANDER SAID PT HAD BEEN DRINKING ALL NIGHT. PT IS APPEARS POSTICTAL AT THIS X. PT IS NOT TALKING AT THIS X EYES OPEN. PT HAS SL FROM EMS #20 R AC. Source: patient Exam Limitations: no limitations History of Present Illness Date Seen by Provider: Oct 24, 2022 Time Seen by Provider: 09:57 Initial Comments Patient is a 32-year-old female brought to the emergency department by ambulance after reported seizures. She apparently has been drinking alcohol all night. There is a question of whether or not she was at work yesterday evening. EMS reported she had an episode of approximately 1 minute of generalized tonic- clonic movement in the ambulance prior to arrival. Blood sugar reported as adequate. No reported trauma from friends at the home from which she was taken. Per review of the medical record the patient has a remote history of "seizures". No medication in the medical record for seizures. History of polysubstance abuse, methamphetamine, EtOH. Had a & delivery in December 2021. Patient arrives "postictal". Not responsive to noxious stimuli, Q-tip in the right nare, nailbed pressure of the left hand. She is protecting her airway, I have witnessed her swallowing. When I touch the side of her head she will turn her head to the opposite side. Her eyes are closed. No purposeful movement. Will not vocalize. GCS essentially 3 at this time however I have no acute concerns for airway. She has a few scattered bruises/abrasions, left torso, right medial thigh, left lateral thigh. No obvious intraoral injury/tongue biting. No obvious facial trauma. Her pupils are approximately 5, briskly reactive. As she lays in the bed I can see extraocular movements with her eyes closed. Tearing from the right eye. Timing/Duration: other (Unknown) Associated Symptoms: other (Unable to obtain) Allergies and Home Medications Allergies Coded Allergies: acetaminophen (Verified Allergy, Mild, Rash, 11/24/19) Patient Home Medication List Home Medication List Reviewed: Yes Cephalexin (Cephalexin) 500 Mg Tablet, 500 MG PO QID Prescribed by: JANET LUTZ on 04/05/221952 Famotidine (Heartburn Prevention) 10 Mg Tablet, 10 MG PO, (Reported) Entered as Reported by: MANUEL KEARNEY on 12/28/211823 Ondansetron (Ondansetron Odt) 4 Mg Tab.rapdis, 4 MG SL Q4H PRN for NAUSEA/VOMITING Prescribed by: CARLA HAWK on 03/27/22 230 Vit/Iron Fumarate/FA ( Tablet) 27 Mg Iron-800 Mcg Tablet, 1 E ACH PO, (Reported) Entered as Reported by: MANUEL KEARNEY on 12/28/211823 Review of Systems Review of Systems Constitutional: see HPI Unable to obtain at this time ? postictal state Past Rhgobke-Tpmszs-Umxued Hx Patient Social History Tobacco Use?: No Smoking Status: Unknown if Ever Smoked Use of E-Cig and/or Vaping Javi: Unknown if Ever Used Substance use?: Unable to obtain Alcohol Use?: Unable to obtain Pt feels they are or have been: No Immunizations Up To Date Tetanus Booster (TDap): Less than 5yrs PED Vaccines UTD: Yes Influenza Vaccine Up-to-Date: No; Not Current Seasonal Allergies Seasonal Allergies: No Past Medical History Surgery/Hospitalization HX: HX SEIZURES Surgeries: Yes (TEETH REMOVED) Respiratory: No Cardiac: Yes Hypertension Neurological: Yes (SEIZURES PER PT--NO PHYSICAN DOCUMENTED SEIZURES) Seizure Disorder Reproductive Disorders: Yes (CHRONIC PELVIC PAIN ) Female Reproductive Disorders: Menstrual Problems, Pelvic Inflammatory Dis, Endometriosis Sexually Transmitted Disease: Yes (gonorrhea and Chlamydia) HIV/AIDS: No Genitourinary: Yes Bladder Infection Gastrointestinal: No Musculoskeletal: No Endocrine: Yes ("HYPOGLYCEMIC" PER PT) Diabetes, Non-Insulin dep HEENT: No Cancer: No Psychosocial: Yes (History of substance abuse, currently in recovery) Depression Integumentary: No Blood Disorders: No Adverse Reaction/Blood Tranf: No Family Medical History No Pertinent Family Hx Physical Exam Vital Signs Vital Signs - First Documented 10/24/22 09:41 Temp 35.5 Pulse 86 Resp 18 B/P (MAP) 130/76 (94) Pulse Ox 97 Capillary Refill : Less Than 3 Seconds Height, Weight, BMI Height: 5'6.00" Weight: 128lbs. 0.0oz. 58.511258hr; 27.00 BMI Method:Stated General Appearance: WD/WN, no apparent distress HEENT: PERRL/EOMI, TMs normal (Mild erythema over the bony prominences of the right TM) Neck: normal inspection Respiratory: lungs clear, normal breath sounds, no respiratory distress, no accessory muscle use Cardiovascular: regular rate, rhythm (80's) Peripheral Pulses: 2+ Radial Pulses (R), 2+ Radial Pulses (L) Gastrointestinal: normal bowel sounds, soft; No distended Extremities: normal inspection, normal capillary refill Neurologic/Psychiatric: other (GCS = 3 @ this time) Crainal Nerves: other (unable to assess) Coordination/Gait: other (unable to assess) Motor/Sensory: other (unable to assess) Skin: normal color, warm/dry, other (abrasion right medial thigh; abrasion left lateral thigh) Progress/Results/Core Measures Results/Orders Lab Results Laboratory Tests Test 10/24/22 09:47 10/24/22 09:52 10/24/22 10:23 Range/Units White Blood Count 16.8 H 4.3-11.0 10^3/uL Red Blood Count 4.84 3.80-5.11 10^6/uL Hemoglobin 14.2 11.5-16.0 g/dL Hematocrit 42 35-52 % Mean Corpuscular Volume 87 80-99 fL Mean Corpuscular Hemoglobin 29 25-34 pg Mean Corpuscular Hemoglobin Concent 34 32-36 g/dL Red Cell Distribution Width 13.0 10.0-14.5 % Platelet Count 374 130-400 10^3/uL Mean Platelet Volume 10.9 9.0-12.2 fL Immature Granulocyte % (Auto) 0 % Neutrophils (%) (Auto) 75 42-75 % Lymphocytes (%) (Auto) 20 12-44 % Monocytes (%) (Auto) 3 0-12 % Eosinophils (%) (Auto) 1 0-10 % Basophils (%) (Auto) 1 0-10 % Neutrophils # (Auto) 12.6 H 1.8-7.8 10^3/uL Lymphocytes # (Auto) 3.4 1.0-4.0 10^3/uL Monocytes # (Auto) 0.5 0.0-1.0 10^3/uL Eosinophils # (Auto) 0.1 0.0-0.3 10^3/uL Basophils # (Auto) 0.1 0.0-0.1 10^3/uL Immature Granulocyte # (Auto) 0.1 0.0-0.1 10^3/uL Neutrophils % (Manual) 70 % Lymphocytes % (Manual) 28 % Monocytes % (Manual) 2 % Eosinophils % (Manual) 0 % Basophils % (Manual) 0 % Band Neutrophils 0 % Blood Morphology Comment NORMAL Sodium Level 143 135-145 MMOL/L Potassium Level 3.5 L 3.6-5.0 MMOL/L Chloride Level 109 H 98-107 MMOL/L Carbon Dioxide Level 18 L 21-32 MMOL/L Anion Gap 16 H 5-14 MMOL/L Blood Urea Nitrogen 12 7-18 MG/DL Creatinine 0.83 0.60-1.30 MG/DL Estimat Glomerular Filtration Rate 97 BUN/Creatinine Ratio 14 Glucose Level 85 70-105 MG/DL Calcium Level 9.2 8.5-10.1 MG/DL Corrected Calcium 9.0 8.5-10.1 MG/DL Total Bilirubin 0.3 0.1-1.0 MG/DL Aspartate Amino Transf (AST/SGOT) 18 5-34 U/L Alanine Aminotransferase (ALT/SGPT) 23 0-55 U/L Alkaline Phosphatase 101 40-136 U/L Total Protein 7.8 6.4-8.2 GM/DL Albumin 4.3 3.2-4.5 GM/DL Salicylates Level < 5.0 L 5.0-20.0 MG/DL Acetaminophen Level < 10 L 10-30 UG/ML Serum Alcohol 132 H <10 MG/DL Urine Color YELLOW Urine Clarity CLEAR Urine pH 6.0 5-9 Urine Specific [place] 1.010 L 1.016-1.022 Urine Protein NEGATIVE NEGATIVE Urine Glucose (UA) NEGATIVE NEGATIVE Urine Ketones NEGATIVE NEGATIVE Urine Nitrite NEGATIVE NEGATIVE Urine Bilirubin NEGATIVE NEGATIVE Urine Urobilinogen 0.2 < = 1.0 MG/DL Urine Leukocyte Esterase NEGATIVE NEGATIVE Urine RBC (Auto) TRACE-I H NEGATIVE Urine RBC NONE /HPF Urine WBC NONE /HPF Urine Squamous Epithelial Cells NONE /HPF Urine Crystals NONE /LPF Urine Bacteria NEGATIVE /HPF Urine Casts NONE /LPF Urine Mucus NEGATIVE /LPF Urine Culture Indicated NO Urine Opiates Screen NEGATIVE NEGATIVE Urine Oxycodone Screen NEGATIVE NEGATIVE Urine Methadone Screen NEGATIVE NEGATIVE Urine Propoxyphene Screen NEGATIVE NEGATIVE Urine Barbiturates Screen NEGATIVE NEGATIVE Ur Tricyclic Antidepressants Screen NEGATIVE NEGATIVE Urine Phencyclidine Screen NEGATIVE NEGATIVE Urine Amphetamines Screen NEGATIVE NEGATIVE Urine Methamphetamines Screen NEGATIVE NEGATIVE Urine Benzodiazepines Screen NEGATIVE NEGATIVE Urine Cocaine Screen NEGATIVE NEGATIVE Urine Cannabinoids Screen NEGATIVE NEGATIVE Glucometer 80 70-110 MG/DL My Orders Orders - GARRICK ALCANTAR MD Urine Bedside (10/24/22 10:07) Ed Iv/Invasive Line Start (10/24/22 10:07) Cbc With Automated Diff (10/24/22 10:07) Comprehensive Metabolic Panel (10/24/22 10:07) Salicylate (10/24/22 10:07) Acetaminophen (10/24/22 10:07) Alcohol (10/24/22 10:07) Ua Culture If Indicated (10/24/22 10:07) Catheter(Urinary) Insert & Ass 03,15 (10/24/22 10:07) Drug Screen Stat (Urine) (10/24/22 10:07) Accucheck Stat ONCE (10/24/22 10:07) Manual Differential (10/24/22 09:47) Vital Signs/I&O 10/24/22 09:41 Temp 35.5 Pulse 86 Resp 18 B/P (MAP) 130/76 (94) Pulse Ox 97 Blood Pressure Mean: 94 Progress Progress Note : Time: 11:26 Progress Note Patient reassessed at this time. Vital signs remained stable. She responds to sternal rub, will open her eyes and talk to me but then will turn her head and close her eyes. I asked her if she had anyone that could come and pick her up, she told me no. I asked if she had a boyfriend or a parent and she said "I do not know". She shrugged her shoulders turned her head to the left and closed her eyes. Evaluation today includes physical exam, CBC, Chem-12, bedside test, aspirin Tylenol and alcohol level, urine drug screen and urinalysis. Patient has been monitored throughout her stay here in the emergency department. No medications were administered. Vital signs remained stable. Differential diagnosis based on history and physical exam, seizureunsure of likelihood of this as the patient has never been medicated for seizures. Intoxication, trauma/head injury, infection. Labs independently evaluated by me, CBC shows a white count of 16.8 with normal hemoglobin, hematocrit and platelets. Chemistry shows sodium of 143, potassium of 3.5, CO2 of 18, normal BUN and creatinine blood sugar of 85. Aspirin and Tylenol levels are undetectable. Urine drug screen is negative. Alcohol is 132. Urinalysis does not show any signs of infection. Based on laboratory results it is possible that she has had a seizure. She has a slightly low potassium and low CO2 with elevated white count. This also could be secondary to diet dehydration due to her alcohol use over the course of the evening. I do not feel like it is clinically in the patient's best interest to load her on Keppra as I believe her adherence to medical therapy to be questionable. Also neurology follow-up would be unlikely in this patient. We will attempt to find a friend or family member to come and pick her up. No clinical or objective findings to warrant further treatment or monitoring in the emergency department. Departure Impression Primary Impression: Alcohol intoxication Qualified Codes: F10.929 - Alcohol use, unspecified with intoxication, unspecified Additional Impression: History of seizure disorder Disposition: HOME, SELF-CARE Condition: Improved Departure-Patient Inst. Decision time for Depature: 11:31 Referrals: CRUZ PANDEY MD (PCP/Family) Primary Care Physician Patient Instructions: Alcohol Intoxication ED Add. Discharge Instructions: Drink plenty of fluids, water, Gatorade etc. to stay hydrated. You will need to call your primary care doctor's office for a follow-up appointment early next week for further evaluation of possible seizures. Do not drive until cleared by your primary care physician. GARRICK ALCANTAR MD Oct 24, 2022 09:57
[2022-10-24 10:15] LABS: BILIRUBIN,URINE NEGATIVE (NEGATIVE); CLARITY,URINE CLEAR; COLOR,URINE YELLOW; GLUCOSE, URINE (UA) NEGATIVE (NEGATIVE); KETONES,URINE NEGATIVE (NEGATIVE); LEUKOCYTE ESTERASE ,URINE NEGATIVE (NEGATIVE); NITRITE,URINE NEGATIVE (NEGATIVE); PROTEIN,URINE NEGATIVE (NEGATIVE)
[2022-10-24 10:19] LABS: ALBUMIN 4.3 GM/DL (3.2-4.5); CHLORIDE 109 MMOL/L (98-107); POTASSIUM 3.5 MMOL/L (3.6-5.0); SODIUM 143 MMOL/L (135-145)
[2022-10-24 10:20] LABS: CALCIUM 9.2 MG/DL (8.5-10.1)
[2022-10-24 10:21] LABS: BASOPHILS # (AUTO) 0.1 10^3/uL (0.0-0.1); BASOPHILS % (AUTO) 1 % (0-10); EOSINOPHILS # (AUTO) 0.1 10^3/uL (0.0-0.3); EOSINOPHILS % (AUTO) 1 % (0-10); HEMATOCRIT 42 % (35-52); HEMOGLOBIN 14.2 g/dL (11.5-16.0); LYMPHOCYTES # (AUTO) 3.4 10^3/uL (1.0-4.0); LYMPHOCYTES % (AUTO) 20 % (12-44); MEAN CORPUSCULAR HEMOGLOBIN 29 pg (25-34); MEAN CORPUSCULAR HGB CONC 34 g/dL (32-36); MEAN CORPUSCULAR VOLUME 87 fL (80-99); MEAN PLATELET VOLUME 10.9 fL (9.0-12.2); MONOCYTES # (AUTO) 0.5 10^3/uL (0.0-1.0); MONOCYTES % (AUTO) 3 % (0-12); NEUTROPHILS # (AUTO) 12.6 10^3/uL (1.8-7.8); NEUTROPHILS % (AUTO) 75 % (42-75); PLATELET COUNT 374 10^3/uL (130-400); WHITE BLOOD COUNT 16.8 10^3/uL (4.3-11.0)
[2022-10-24 10:22] LABS: GLUCOSE 85 MG/DL (70-105); TOTAL PROTEIN 7.8 GM/DL (6.4-8.2)
[2022-10-24 10:22] LABS: BACTERIA,URINE NEGATIVE /HPF
[2022-10-24 10:23] LABS: BILIRUBIN,TOTAL 0.3 MG/DL (0.1-1.0); CARBON DIOXIDE 18 MMOL/L (21-32)
[2022-10-24 10:25] LABS: ALKALINE PHOSPHATASE 101 U/L (40-136); CREATININE SERUM 0.83 MG/DL (0.60-1.30); GFR ESTIMATED 97
[2022-10-24 10:27] LABS: ACETAMINOPHEN < 10 UG/ML (10-30); BUN/CREATININE RATIO 14
[2022-10-24 10:28] LABS: ALANINE AMINOTRANSFERASE 23 U/L (0-55); SALICYLATE < 5.0 MG/DL (5.0-20.0)
[2022-10-24 10:36] LABS: AMPHETAMINE SCREEN, URINE NEGATIVE (NEGATIVE); BARBITURATE SCREEN URINE NEGATIVE (NEGATIVE); BENZODIAZEPINES SCREEN URINE NEGATIVE (NEGATIVE); CANNABINOID SCREEN, URINE NEGATIVE (NEGATIVE); COCAINE SCREEN URINE NEGATIVE (NEGATIVE); METHADONE STAT NEGATIVE (NEGATIVE); OPIATE SCREEN URINE NEGATIVE (NEGATIVE); OXYCODONE STAT NEGATIVE (NEGATIVE); PROPOXYPHENE STAT NEGATIVE (NEGATIVE); TRICYCLIC ANTIDEPRESSANTS SCRE NEGATIVE (NEGATIVE)
[2022-10-24 10:42] LABS: BAND NEUTROPHILS 0 %; BASOPHILS % (MANUAL) 0 %; EOSINOPHILS % (MANUAL) 0 %; LYMPHOCYTES % (MANUAL) 28 %; MONOCYTES % (MANUAL) 2 %; NEUTROPHILS % (MANUAL) 70 %; RBC MORPH NORMAL
[2022-10-24 11:30] VITALS: BP 162/68
== END 2022-10-24 14:25 | disposition home or self-care (01) ==
LOC: EDUNIT# 09:39 → ER 09:40
DX: G40.909 Epilepsy, unspecified, not intractable, without status epilepticus (principal); F10.129 Alcohol abuse with intoxication, unspecified; E87.6 Hypokalemia; R09.02 Hypoxemia; Z79.899 Other long term (current) drug therapy; Y90.6 Blood alcohol level of 120-199 mg/100 ml
CPT/HCPCS: 51702; 80053; 80306; 81000; 82947; 84703; 85007; 85027; 99284; G0480 ×3; 36415; 80320; 80329

== ENCOUNTER 2022-10-28 21:39 | Emergency (ER) | payer MEDICAID ==
[~2022-10-28] VITALS: Ht 167.7 cm; Wt 81.6 kg
[2022-10-28] MEDS ORDERED: NAPR-915 PO (23:04)
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
[2022-10-29 00:14] VITALS: BP 124/71
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
== END 2022-10-29 00:14 | disposition home or self-care (01) ==
LOC: EDUNIT# 21:39 → ER 21:41
DX: S09.90XA Unspecified injury of head, initial encounter (principal); M25.512 Pain in left shoulder; M25.511 Pain in right shoulder; F17.210 Nicotine dependence, cigarettes, uncomplicated; F17.290 Nicotine dependence, other tobacco product, uncomplicated; Z28.311 Partially vaccinated for COVID-19; Y04.8XXA Assault by other bodily force, initial encounter
CPT/HCPCS: 70450; 70486; 71046; 72125